=== PATIENT | male | born 1980 | race Caucasian/White ===

== ENCOUNTER 2021-04-01 20:58 | Emergency (ER) | payer BC, SELFPAY ==
--- NOTE | ~2021-04-01 | CT_ITS ---
EXAMINATION: CT ABDOMEN AND PELVIS WITHOUT CONTRAST CLINICAL INFORMATION: Left flank pain COMPARISON: None TECHNIQUE: Multidetector volumetric imaging was performed from the superior aspect of the liver through the pubic symphysis. Sagittal and coronal reformatted images were obtained on the technologist's workstation. This CT examination was performed using dose optimization techniques as appropriate, variously including the following: *Automated exposure control *Adjustment of mA and/or kV according to patient size (this includes techniques or standardized protocols for targeted exams where dose is matched to indication/reason for exam; i.e. extremities or head) *Use of iterative reconstruction technique DLP: 1234 mGy-cm FINDINGS: LUNG BASES: The visualized lung bases are unremarkable. LIVER, GALLBLADDER, AND BILIARY TREE: The liver is normal in size, shape, and attenuation. No focal hepatic lesion or biliary ductal dilatation is present. The gallbladder is unremarkable with no evidence of radiopaque gallstones, gallbladder wall thickening, or obvious pericholecystic inflammatory changes. PANCREAS: Unremarkable. SPLEEN: Unremarkable. ADRENAL GLANDS: Unremarkable. KIDNEYS AND URETERS: The kidneys are normal in size, shape, and attenuation. No hydronephrosis, hydroureter, or calculi seen. No perinephric stranding. Calcification versus surgical clip along the posterior margin of the left kidney. Cortical thinning at the lower pole of the left kidney. BLADDER: Decompressed with no gross abnormality. GASTROINTESTINAL TRACT: The stomach is unremarkable. Normal caliber small bowel. There is no obstruction. No colonic wall thickening or inflammatory change. No free air. No free fluid. Short appendix noted without inflammation.. ABDOMINAL WALL: No significant hernia is appreciated. LYMPH NODES: Normal. Retroperitoneal surgical clips noted. VASCULAR: Normal caliber aorta. Minimal arthroscopic calcification noted. PELVIC VISCERA: The prostate and seminal vesicles are unremarkable. OSSEOUS STRUCTURES: No acute or suspicious osseous abnormality. CT/CT abdomen pelvis wo con IMPRESSION: No acute findings in the abdomen or pelvis. No hydronephrosis or nephrolithiasis. Surgical clips are seen adjacent to the kidney and in the retroperitoneum, suggesting previous intervention. No acute abnormality.
[2021-04-01 21:09] VITALS: BP 130/80; PULSE 100; O2SAT 97
[2021-04-01 22:19] VITALS: BP 124/79; PULSE 92; RESP 18; TEMP 37.1; O2SAT 97; BMI 41.8
[2021-04-02] MEDS: Acetaminophen 325 MG TABLET 650 MG PO (03:24)
[2021-04-02] MEDS: Ketorolac Tromethamine 15 MG/ML VIAL IM (03:24)
[2021-04-02] MEDS: Lidocaine 4 % Patch ADH..PATCH 1 PATCH TRANSDERMA (03:24)
--- NOTE | 2021-04-02 03:34 | ED_ITS ---
HPI - Back Pain/Injury General Chief Complaint: Back Pain/Injury Stated Complaint: back pain Time Seen by Provider: 04/02/21 03:34 Source: patient Mode of arrival: ambulatory History of Present Illness HPI Narrative: This is a 41-year-old male who has history of kidney stones and presents with onset of lower back pain that is sharp in nature and wraps around into the left groin area primarily on the left side that started earlier in the day, patient stated that he laid down to try to relieve the symptoms that ?he just could not get comfortable?. He denies any associated fever, chills, shortness of breath, chest pain/palpitations, nausea, vomiting, diarrhea, but states he has had some difficulty urinating any denies any recent alcohol use. Related Data Allergies Allergy/AdvReac Type Severity Reaction Status Date / Time No Known Allergies Allergy Verified 04/01/21 22:19 Review of Systems Review of Systems: Pertinent positives and negatives as stated in HPI 10 point review systems is otherwise negative. PMFSH Past Medical History Source: nursing notes reviewed Social History Social History Patient Tobacco Use Status: Never used Tobacco Use of substances other than those prescribed or required for medical reasons: No Advance Directives: No Advance Directives Information Provided: No Physical Exam Vital Signs: Vital Signs: Last Vital Signs Temp 98.7 F 04/02/21 04:00 Pulse 76 04/02/21 04:00 Resp 15 04/02/21 04:00 BP 137/79 04/02/21 04:00 Pulse Ox 96 04/02/21 04:00 Body Mass Index 41.8 VITAL SIGNS: Reviewed. GENERAL: Well developed, well nourished, in no acute distress. HEAD: Normocephalic/atraumatic EYES: PERRLA, EOMI OROPHARYNX: no oral lesions noted, posterior pharynx clear LUNGS: Normal breath sounds. SpO2<97> CARDIOVASCULAR: Regular rate and rhythm without noted murmurs ABDOMEN: Soft, non-tender, non-distended with bowel sounds. SKIN: Inspection of the skin reveals no rashes NEUROLOGIC: Alert and oriented x 4. Strength and sensation to light touch were grossly intact, but some dysfunction on the right side secondary to history of TBI Course Course Course Narrative: 41-year-old male with history and clinical presentation most suggestive of renal colic, doubt diverticulitis, colitis, UTI. Review of all investigations negative for acute findings to suggest renal colic, diverticulitis, colitis, UTI. On re-evaluation patient has complete resolution of his pain is otherwise discharged home in stable condition with instructions to follow-up with his primary care provider. MDM - Back Pain/Injury Lab Data Result diagrams: 04/02/21 04:42 04/02/21 04:42 Labs: Lab Results 04/02/21 04/02/21 04/02/21 Range/Units 04:38 04:42 04:42 WBC 9.6 (4.8-10.8) X10*3/uL RBC 4.88 (4.60-5.80) X10*6/uL Hgb 14.4 (14.0-18.0) g/dl Hct 44.1 (42-52) % MCV 90.4 (80-98) fL MCH 29.5 (27.0-33.0) pg MCHC 32.7 (31.0-36.0) g/dl RDW 13.4 (11.0-16.0) % Plt Count 309 (160-400) X10*3/uL MPV 11.0 (9.4-12.4) fL Immature Gran % (Auto) 0.4 (0.0-0.4) % Neut % (Auto) 56.2 (45-73) % Lymph % (Auto) 29.7 (20-40) % [place] % (Auto) 9.0 (2-11) % Eos % (Auto) 4.2 H (0-4) % Baso % (Auto) 0.5 (0-2) % Lymph # (Auto) 2.8 (1.2-4.9) X10*3/uL [place] # (Auto) 0.9 (0.1-1.2) X10*3/uL Eos # (Auto) 0.4 (0.0-0.4) X10*3/uL Baso # (Auto) 0.1 (0.0-0.2) X10*3/uL Abs Immat Gran (auto) 0.04 H (0.00-0.03) X10*3/uL Absolute Neuts (auto) 5.4 (2.0-8.3) X10*3/uL Absolute Nucleated RBC 0.000 (0.0-0.012) X10*3/uL Nucleated RBC % (auto) 0.0 (0.0-0.2) /100WBC Sodium 139 (135-145) mmol/L Potassium 4.4 (3.3-5.1) mmol/L Chloride 106 (96-108) mmol/L Carbon Dioxide 26 (22-29) mmol/L Anion Gap 11 L (12-20) BUN 6 L (9-16) mg/dL Creatinine 0.90 (0.5-1.4) mg/dL Estim Creat Clear Calc 149.1 Estimated GFR > 60 Random Glucose 108 (60-115) mg/dL Calcium 9.3 (8.4-10.2) mg/dL Total Bilirubin 0.6 (0.0-1.0) mg/dL AST 15 (5-37) U/L ALT 23 (0-40) U/L Alkaline Phosphatase 86 (39-117) U/L Total Protein 7.4 (6.5-8.0) g/dL Albumin 4.1 (3.5-5.0) g/dL Lipase 49 (8-78) U/L Urine Color YELLOW Urine Appearance CLEAR Urine pH 6.0 (5.0-8.0) Ur Specific [place] >= 1.030 H (1.005-1.025) Urine Protein NEG (NEG-TRACE) MG/DL Urine Glucose (UA) NEG (NEG) MG/DL Urine Ketones NEG (NEG) MG/DL Urine Blood NEG (NEG) Urine Nitrite NEG (NEG) Ur Leukocyte Esterase NEG (NEG) Discharge Plan Discharge Clinical Impression: Back pain Patient Disposition: Home, Self-Care Instructions: Back Pain (ED) Additional Instructions: 1. Continue to take [id number] Tylenol/ibuprofen as needed for back pain. 2. Recommend using [id number] lidocaine patches, apply to area of maximal tenderness as directed on the outside packaging. 3. Follow-up with your primary care provider in the next 1-2 days for re- evaluation. Return to the ER for acute worsening of symptoms. Referrals: Larissa Rodriguez NP [Primary Care Provider] - 2 days (Back pain)
[2021-04-02 04:00] VITALS: BP 137/79; PULSE 76; RESP 15; TEMP 37.1; O2SAT 96
[2021-04-02 04:49] LABS: MANUAL DIFF FLAG NO
[2021-04-02 04:50] LABS: Basophils Absolute Auto 0.1 X10*3/uL (0.0-0.2); Basophils Percent Auto 0.5 % (0-2); Eosinophils Absolute Auto 0.4 X10*3/uL (0.0-0.4); Eosinophils Percent Auto 4.2 % (0-4); Hematocrit 44.1 % (42-52); Hemoglobin 14.4 g/dl (14.0-18.0); Imm Gran Abs Auto 0.04 X10*3/uL (0.00-0.03); Imm Gran Pct Auto 0.4 % (0.0-0.4); Lymphocytes Absolute Auto 2.8 X10*3/uL (1.2-4.9); Lymphocytes Percent Auto 29.7 % (20-40); Mean Corpuscular HGB Conc 32.7 g/dl (31.0-36.0); Mean Corpuscular Hemoglobin 29.5 pg (27.0-33.0); Mean Corpuscular Volume 90.4 fL (80-98); Monocytes Absolute Auto 0.9 X10*3/uL (0.1-1.2); Neutrophils Absolute Auto 5.4 X10*3/uL (2.0-8.3); Neutrophils Percent Auto 56.2 % (45-73); Platelet Count 309 X10*3/uL (160-400); Red Blood Count 4.88 X10*6/uL (4.60-5.80); Red Cell Distribution Width 13.4 % (11.0-16.0); White Blood Count 9.6 X10*3/uL (4.8-10.8)
[2021-04-02 04:51] LABS: Glucose Urine UA NEG (NEG); Leukocyte Esterase Urine NEG (NEG); Nitrite Urine NEG (NEG); Specific Gravity - Urine >= 1.030 (1.005-1.025); Urine Blood NEG (NEG); Urine Ketones NEG (NEG); Urine Protein NEG (NEG-TRACE)
[2021-04-02 04:53] LABS: Appearance Urine CLEAR; Color Urine YELLOW
[2021-04-02 05:32] LABS: Alanine Aminotransferase 23 U/L (0-40); Albumin Level 4.1 g/dL (3.5-5.0); Anion Gap 11 (12-20); Aspartate Amino Transferase 15 U/L (5-37); Bilirubin Total 0.6 mg/dL (0.0-1.0); Calcium 9.3 mg/dL (8.4-10.2); Carbon Dioxide 26 mmol/L (22-29); Chloride 106 mmol/L (96-108); Creatinine Clr Calc Pharmacy 149.1; Estimated Glomerular Filt Rate > 60; Glucose Random 108 mg/dL (60-115); Lipase 49 U/L (8-78); Potassium 4.4 mmol/L (3.3-5.1); Sodium 139 mmol/L (135-145); Total Protein 7.4 g/dL (6.5-8.0)
[2021-04-02 05:37] LABS: Alkaline Phosphatase 86 U/L (39-117); Blood Urea Nitrogen 6 mg/dL (9-16)
== END 2021-04-02 05:50 | disposition home or self-care (01) ==
PROVIDERS: Emergency Provider Student in an Organized Health Care Education/Training Program; PCP Nurse Practitioner Family
DX: M54.5 Low back pain (principal)
CPT/HCPCS: 36415; 74176; 80053; 81003; 83690; 85025; 96372; 99284; 99285; J1885

== ENCOUNTER 2021-05-06 20:13 | Inpatient (IN) | payer MEDICARE, SELFPAY ==
[2021-05-06 21:00] VITALS: BP 131/86; PULSE 90; RESP 18; TEMP 36.8; O2SAT 94; BMI 41.8
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
--- NOTE | 2021-05-06 21:51 | PHA.MEDREC ---
Pharmacy Consult ? Medication Reconciliation Pharmacy has completed the medication reconciliation.
--- NOTE | 2021-05-06 22:12 | MHC.CARE ---
CARE team contacted by pt's sister, Sissy, this afternoon who expressed concern for the pt experiencing worsening depression and suicidal ideation. Would like pt to be evaluated, notified CARE team that she would be bringing him to the ED this evening. Pt has [email or web address] [place] insurance and will be evaluated by CARE team when he is medically cleared for assessment.
[2021-05-06 22:23] LABS: COVID-19 Test Negative (Negative)
[2021-05-06 23:09] LABS: MANUAL DIFF FLAG NO
[2021-05-06 23:10] LABS: Basophils Absolute Auto 0.1 X10*3/uL (0.0-0.2); Basophils Percent Auto 0.4 % (0-2); Eosinophils Absolute Auto 0.6 X10*3/uL (0.0-0.4); Eosinophils Percent Auto 5.3 % (0-4); Hematocrit 47.3 % (42-52); Hemoglobin 15.3 g/dl (14.0-18.0); Imm Gran Abs Auto 0.02 X10*3/uL (0.00-0.03); Imm Gran Pct Auto 0.2 % (0.0-0.4); Lymphocytes Absolute Auto 3.6 X10*3/uL (1.2-4.9); Lymphocytes Percent Auto 30.8 % (20-40); Mean Corpuscular HGB Conc 32.3 g/dl (31.0-36.0); Mean Corpuscular Hemoglobin 29.2 pg (27.0-33.0); Mean Corpuscular Volume 90.3 fL (80-98); Mean Platelet Volume 11.5 fL (9.4-12.4); Monocytes Absolute Auto 1.1 X10*3/uL (0.1-1.2); Monocytes Percent Auto 9.2 % (2-11); Neutrophils Absolute Auto 6.4 X10*3/uL (2.0-8.3); Neutrophils Percent Auto 54.1 % (45-73); Platelet Count 287 X10*3/uL (160-400); Red Blood Count 5.24 X10*6/uL (4.60-5.80); Red Cell Distribution Width 13.2 % (11.0-16.0); White Blood Count 11.8 X10*3/uL (4.8-10.8)
[2021-05-06 23:32] LABS: Ethanol < 10 mg/dL
[2021-05-06 23:35] LABS: Alanine Aminotransferase 35 U/L (0-40); Albumin Level 4.3 g/dL (3.5-5.0); Alkaline Phosphatase 82 U/L (39-117); Anion Gap 13 (12-20); Aspartate Amino Transferase 19 U/L (5-37); Bilirubin Direct < 0.2 mg/dL (0.0-0.5); Bilirubin Total 0.5 mg/dL (0.0-1.0); Blood Urea Nitrogen 17 mg/dL (9-16); Calcium 9.6 mg/dL (8.4-10.2); Carbon Dioxide 27 mmol/L (22-29); Chloride 104 mmol/L (96-108); Estimated Glomerular Filt Rate > 60; Glucose Random 143 mg/dL (60-115); Potassium 4.2 mmol/L (3.3-5.1); Sodium 140 mmol/L (135-145); Total Protein 7.9 g/dL (6.5-8.0)
[2021-05-06 23:43] LABS: Amphetamine Screen Urine Not Detected (Not Detect); Barbiturates, Urine Not Detected (Not Detect); Benzodiazepines Screen Urine Not Detected (Not Detect); Cannabinoid Screen Urine Not Detected (Not Detect); Cocaine Screen Urine Not Detected (Not Detect); Fentanyl, urine Not Detected (Not Detect); Opiate Screen Urine Not Detected (Not Detect); Phencyclidine Screen Urine Not Detected (Not Detect)
[2021-05-06] MEDS: Sertraline HCL 50 MG TABLET PO (23:49)
[2021-05-06] MEDS: Atorvastatin Calcium 20 MG TABLET PO (23:49)
[2021-05-06] MEDS: metFORMIN HCl 500 MG TABLET PO (23:49)
[2021-05-06] MEDS: cephALEXin 500 MG CAPSULE PO (23:49)
--- NOTE | 2021-05-07 00:13 | MHC.CARE ---
CARE team evaluation completed. Plan is for inpatient psychiatric admission. Sect 12a pending facility/unit transfer.
[2021-05-07 00:21] LABS: Appearance Urine CLEAR; Color Urine YELLOW; Glucose Urine UA NEG (NEG); Leukocyte Esterase Urine NEG (NEG); Nitrite Urine NEG (NEG); Specific Gravity - Urine >= 1.030 (1.005-1.025); UACC Culture Trigger NO; Urine Blood 1+ (NEG); Urine Ketones NEG (NEG); Urine Protein NEG (NEG-TRACE)
[2021-05-07 00:24] LABS: Bacteria Urine 1+ /LPF; Squamous Epithelial Cell Urine 1+ /LPF
[2021-05-07 00:25] LABS: Calcium Oxalate Crystals Urine 1+ /LPF
--- NOTE | 2021-05-07 04:15 | PC.NURSE ---
PT SLEEPING, WAKES TO VOICE. WILL CONTINUE TO MONITOR PT.
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
[2021-05-07 08:41] VITALS: BP 167/111; PULSE 88; RESP 18; TEMP 36.8; O2SAT 96
[2021-05-07 09:28] VITALS: BP 167/111; PULSE 88
[2021-05-07] MEDS: lisinopriL 20 MG TABLET PO (09:28)
[2021-05-07] MEDS: cephALEXin 500 MG CAPSULE PO ×4 (09:28→20:58)
[2021-05-07] MEDS: metFORMIN HCl 500 MG TABLET PO ×2 (09:29→17:54)
[2021-05-07 14:00] VITALS: BP 145/72; PULSE 76
--- NOTE | 2021-05-07 14:18 | PC.NURSE ---
REPORT GIVEN TO SALINA ON M5
[2021-05-07 18:00] VITALS: BP 136/81; PULSE 93; RESP 18; TEMP 36.2; O2SAT 95
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
[2021-05-07] MEDS: Atorvastatin Calcium 20 MG TABLET PO (20:58)
[2021-05-07] MEDS: Sertraline HCL 50 MG TABLET PO (20:58)
[2021-05-08 07:00] VITALS: BMI 43.3
[2021-05-08 09:13] LABS: Cholesterol 163 mg/dL; HDL Cholesterol 35 mg/dL; LDL Cholesterol Calculated 108 mg/dl; Triglycerides 100 mg/dL
[2021-05-08 09:24] VITALS: BP 149/71; PULSE 83
[2021-05-08] MEDS: cephALEXin 500 MG CAPSULE PO ×4 (09:24→21:05)
[2021-05-08] MEDS: lisinopriL 20 MG TABLET PO (09:24)
[2021-05-08] MEDS: Loratadine 10 MG TABLET PO (09:24)
[2021-05-08] MEDS: metFORMIN HCl 500 MG TABLET PO ×2 (09:26→17:19)
[2021-05-08 09:30] LABS: Free T4 (Free Thyroxine) 0.92 ng/dL (0.71-1.85); Thyroid Stimulating Hormone 1.33 uIU/mL (0.32-4.0)
[2021-05-08 09:54] LABS: Folate 10.3 ng/mL (> or = 4.0); Vitamin B12 335 pg/mL (200-900)
[2021-05-08 10:36] LABS: Estimated Average Glucose 120 mg/dL; Hemoglobin A1c % 5.8 %
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
[2021-05-08 16:37] VITALS: BP 142/76; PULSE 80; RESP 18; TEMP 36.3; O2SAT 96
[2021-05-08] MEDS: Sertraline HCL 50 MG TABLET PO (21:05)
[2021-05-08] MEDS: Atorvastatin Calcium 20 MG TABLET PO (21:05)
[2021-05-09 06:00] VITALS: PULSE 83; RESP 14; TEMP 36.4; O2SAT 96
[2021-05-09 09:02] VITALS: BP 136/82; PULSE 83
[2021-05-09] MEDS: metFORMIN HCl 500 MG TABLET PO ×2 (09:02→17:58)
[2021-05-09] MEDS: lisinopriL 20 MG TABLET PO (09:02)
[2021-05-09] MEDS: cephALEXin 500 MG CAPSULE PO ×4 (09:04→19:45)
[2021-05-09 18:00] VITALS: BP 135/67; PULSE 103; TEMP 36.2
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
[2021-05-09] MEDS: Sertraline HCL 50 MG TABLET PO (19:45)
[2021-05-09] MEDS: Atorvastatin Calcium 20 MG TABLET PO (19:45)
[2021-05-10 06:00] VITALS: BP 123/76; PULSE 72; RESP 16
[2021-05-10 08:26] VITALS: BP 123/76; PULSE 72
[2021-05-10] MEDS: lisinopriL 20 MG TABLET PO (08:26)
[2021-05-10] MEDS: cephALEXin 500 MG CAPSULE PO ×4 (08:26→22:59)
[2021-05-10] MEDS: metFORMIN HCl 500 MG TABLET PO ×2 (08:26→19:03)
[2021-05-10] MEDS: ARIPiprazole 5 MG TABLET PO (08:26)
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
[2021-05-10 17:46] LABS: Glucose, Whole Blood 95 mg/dL (60-115)
[2021-05-10 18:00] VITALS: BP 110/76; PULSE 89
[2021-05-10] MEDS: hydrOXYzine HCL 25 MG TABLET PO (19:02)
[2021-05-10 22:46] LABS: Glucose, Whole Blood 113 mg/dL (60-115)
[2021-05-10] MEDS: Sertraline HCL 50 MG TABLET PO (22:59)
[2021-05-10] MEDS: Atorvastatin Calcium 20 MG TABLET PO (22:59)
[2021-05-11 08:15] VITALS: BP 143/76; PULSE 82; RESP 16; TEMP 36.8; O2SAT 94
[2021-05-11 08:51] VITALS: BP 143/76; PULSE 82
[2021-05-11] MEDS: ARIPiprazole 5 MG TABLET PO (08:51)
[2021-05-11] MEDS: cephALEXin 500 MG CAPSULE PO ×4 (08:51→20:15)
[2021-05-11] MEDS: lisinopriL 20 MG TABLET PO (08:51)
[2021-05-11] MEDS: metFORMIN HCl 500 MG TABLET PO ×2 (08:51→18:05)
[2021-05-11] MEDS: Sertraline HCL 25 MG TABLET 75 MG PO (20:12)
[2021-05-11] MEDS: Atorvastatin Calcium 20 MG TABLET PO (20:15)
--- NOTE | 2021-05-11 20:25 | P.PNPSI_ITS ---
Subjective Subjective Date of Service: 05/11/21 Reason For Visit: recurrent major depression Interim History: pt reports he's in a good mood today; says he was feeling down yesterday but had a good talk with his sister and is feeling better. Pt said the acuity on the unit has been troubling and he hopes to discharge soon. Pt denies SI. He says he's over it and that he was being dumb (referring to attempt). Diagnostics Vital Signs (24Hr): Vital Signs - 24 hr 05/11/21 08:15 05/11/21 08:51 Temperature 98.2 F Pulse Rate 82 82 Respiratory Rate 16 Blood Pressure 143/76 H 143/76 H Pulse Oximetry 94 Body Mass Index 43.3 Labs Results: 05/06/21 23:05 05/06/21 23:05 Labs: Laboratory Results - last 48 hr 05/10/21 05/10/21 17:40 22:36 POC Glucose 95 113 Medications Medications Current Medications Acetaminophen (Acetaminophen 325 Mg Tablet) 650 mg PO Q6H PRN PRN Reason: Headache/Pain Mild Scale (1-3) Al Hydroxide/Mg Hydroxide (Magnesium Hydrox/Alum Hydrox 30 Ml Oral.Susp) 30 ml PO Q6H PRN PRN Reason: Heartburn/Nausea Aripiprazole (Aripiprazole 5 Mg Tablet) 5 mg PO DAILY [facility] Last Admin: 05/11/21 08:51 Dose: 5 mg Documented by: Atorvastatin Calcium (Atorvastatin Calcium 20 Mg Tablet) 20 mg PO BEDTIME [facility] Last Admin: 05/11/21 20:15 Dose: 20 mg Documented by: Cephalexin HCl (Cephalexin 500 Mg Capsule) 500 mg PO QID [facility] Last Admin: 05/11/21 20:15 Dose: 500 mg Documented by: Hydroxyzine HCl (Hydroxyzine Hcl 25 Mg Tablet) 25 mg PO BEDTIME PRN PRN Reason: Anxiety Last Admin: 05/10/21 19:02 Dose: 25 mg Documented by: Lisinopril (Lisinopril 20 Mg Tablet) 20 mg PO DAILY [facility]; Protocol Last Admin: 05/11/21 08:51 Dose: 20 mg Documented by: Loratadine (Loratadine 10 Mg Tablet) 10 mg PO DAILY PRN PRN Reason: Allergy Symptoms Last Admin: 05/08/21 09:24 Dose: 10 mg Documented by: Magnesium Hydroxide (Milk Of Magnesia 30 Ml Oral.Susp) 30 ml PO DAILY PRN PRN Reason: Constipation Metformin HCl (Metformin Hcl 500 Mg Tablet) 500 mg PO BIDWM [facility] Last Admin: 05/11/21 18:05 Dose: 500 mg Documented by: Sertraline HCl (Sertraline Hcl 25 Mg Tablet) 75 mg PO BEDTIME [facility] Last Admin: 05/11/21 20:12 Dose: 75 mg Documented by: Trazodone HCl (Trazodone Hcl 50 Mg Tablet) 50 mg PO BEDTIME PRN PRN Reason: Insomnia Allergies Allergies Allergy/AdvReac Type Severity Reaction Status Date / Time No Known Allergies Allergy Verified 04/01/21 22:19 Assessment & Plan Assessment & Plan (1) Severe recurrent major depression: Status: Acute Code(s): F33.2 - Major depressive disorder, recurrent severe without psychotic features Assessment and Plan: Probation And Parole Officer covering patient 05/11 Increased Zoloft to 75 mg to address depression No other changes to current treatment plan Primary team provider might consider trial of Adderall/stimulant medication for TBI, which can also potentially help with depression 41 yo male, s/p TBI in 2005 with resulting 8 month coma, presents with SI and reported attempt a few days prior to admission. Pt's of cancer in January 2020 which he identifies as the main precipitant as he has difficulty being alone. Pt initiated Sertraline with PCP a few days prior to admission. Sister reports family history of depression-she tells team she has efficacy from a combination of Effexor and Abilify. Plan: -Continue current plan -Aftercare planning, team is looking into day programs to offer more structure and support. Greater than 50% of the session was spent on counseling and/or coordination of care Reason for contiued inpatient stay Substantial Risk for: other
[2021-05-12 06:00] VITALS: BP 147/84; PULSE 90; RESP 16; TEMP 36.5; O2SAT 95
[2021-05-12 08:18] LABS: Creatinine Clr Calc Pharmacy 162.9; Estimated Glomerular Filt Rate > 60
[2021-05-12 09:23] VITALS: BP 147/84; PULSE 95
[2021-05-12] MEDS: ARIPiprazole 5 MG TABLET PO (09:23)
[2021-05-12] MEDS: metFORMIN HCl 500 MG TABLET PO ×2 (09:23→17:55)
[2021-05-12] MEDS: lisinopriL 20 MG TABLET PO (09:23)
[2021-05-12] MEDS: cephALEXin 500 MG CAPSULE PO ×4 (09:23→22:15)
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
[2021-05-12 18:00] VITALS: BP 110/78; PULSE 65
[2021-05-12 18:05] LABS: Glucose, Whole Blood 121 mg/dL (60-115)
[2021-05-12 21:59] LABS: Glucose, Whole Blood 108 mg/dL (60-115)
[2021-05-12] MEDS: Sertraline HCL 25 MG TABLET 75 MG PO (22:15)
[2021-05-12] MEDS: Atorvastatin Calcium 20 MG TABLET PO (22:15)
[2021-05-13 06:00] VITALS: BP 146/81; PULSE 68; RESP 18; TEMP 35.8; O2SAT 94
[2021-05-13 09:35] VITALS: BP 142/79; PULSE 91
[2021-05-13] MEDS: lisinopriL 20 MG TABLET PO (09:35)
[2021-05-13] MEDS: cephALEXin 500 MG CAPSULE PO (09:35)
[2021-05-13] MEDS: metFORMIN HCl 500 MG TABLET PO (09:35)
[2021-05-13] MEDS: ARIPiprazole 5 MG TABLET PO (09:35)
--- NOTE | 2021-06-08 12:00 | P.DS_ITS ---
DS: Providers Provider Date of Service: 05/13/21 Date of admission: 05/07/21 15:35 Date of discharge: 05/13/21 Primary care physician: Larissa Rodriguez NP Admitting clinician: Beth Moran Attending physician on admission: Jarrod Leram Attending physician on discharge: Jarrod Lerma Discharging clinician: Beth Moran DS: Diagnosis Discharge Diagnosis (1) Severe recurrent major depression: Status: Acute DS: Medications Discharge Medications Home Medications: Home Medications Medication Instructions Recorded Confirmed atorvastatin 20 mg tablet 1 tab PO BEDTIME 05/06/21 05/06/21 fexofenadine 180 mg tablet 180 mg PO DAILY PRN 05/06/21 05/06/21 lisinopril 20 mg tablet 1 tab PO DAILY 05/06/21 05/06/21 Previous Rx's Medication Instructions Recorded aripiprazole 5 mg tablet (Abilify) 5 mg PO DAILY #30 tab 05/13/21 lisinopril 20 mg tablet 20 mg PO DAILY #30 tab 05/13/21 metformin 500 mg tablet 500 mg PO BIDWM #60 tab 05/13/21 sertraline 25 mg tablet 100 mg PO BEDTIME #90 tab 05/13/21 Mental Status Exam Mental Status Exam Narrative: Patient Appearance:?lying in bed, t-shirt, unkempt Patient Orientation:?Person, Place, Time and Situation Level of Consciousness:?Alert Patient Behavior:?calm, cooperative, adequate Eye Contact Mood Description:?Depressed and Anxious Affect Description:?Flat Patient Cognition Impaired:?Yes Ability to Follow Directions:?Good Speech Pattern:?Spontaneous Speech Memory Description:?Episodic Impaired Hallucinations:?None Delusions:?Not Present Thought Process:?goal directed; concrete Thought Content:?depression; denies SI or HI Depressive Symptoms:?Diff. Making Decisions, Crying Spells, Loss of Int. in Activity, Feelings of Worthlessness, Hopelessness, Isolating-Friends/Family, Feelings of Guilt, Unhappiness, Increased Fatigue, Thoughts of /Suicide, Low Self Esteem and Loss of Energy Judgement/insight: impaired DS: Summary Hospital Course Hospital Course: Pt admitted on a conditional voluntary status. Medications were reviewed, titrated and tolerated by pt. Pt worked with the nursing and geriatric social work professor t gordy on aftercare planning, coping skills and strategies for managing presenting symptoms, along with processing his feelings of grief and loss. Time spent discussing smoking cessation with patient: 3 to 10 minutes Status at Discharge Cognitive/behavioral status at discharge: non-suicidal, non-homicidal Functional status at discharge: independent ambulation Overall status at discharge: patient is progressing back to baseline Time Spent with Patient Time attestation: Total time spent providing and/or coordinating discharge services: 35 Time spent: Greater than 30 minutes Discharge Plan Discharge Patient Disposition: Home, Self-Care Discharge Diagnosis: MDD, recurrent, moderate Referrals: Kwasi Patino (medication management) [Other] - 05/20/21 2:00 pm (This is a Telehealth appointment. Please have your phone on and ready at the time of your appointment) [facility] ([facility]) [Other] - 1 Week (A [facility] referral has been made on your behalf for support, skill-building, socialization, and assistance with employment opportunities. You should be contacted when your referral has been processed and you can contact the program at the above number) [facility] [Other] - 1 Week (A referral has been made on your behalf for the [employer] [facility] Day Program. Please contact the program at the above number to schedule a tour.) Larissa Rodriguez NP [Primary Care Provider] - 05/21/21 8:36 am (in office) Discharge Medications: New lisinopril 20 mg Tablet 20 mg PO DAILY Qty: 30 RF: 0 sertraline 25 mg Tablet 100 mg PO BEDTIME Qty: 90 RF: 0 metformin 500 mg Tablet 500 mg PO BIDWM Qty: 60 RF: 0 aripiprazole [Abilify] 5 mg Tablet 5 mg PO DAILY Qty: 30 RF: 0 Continued atorvastatin 20 mg tablet 1 tab PO BEDTIME RF: 0 lisinopril 20 mg tablet 1 tab PO DAILY RF: 0 fexofenadine 180 mg Tablet 180 mg PO DAILY PRN (Reason: Allergy Symptoms) RF: 0 Discontinued metformin 500 mg tablet 1 tab PO BID RF: 0 sertraline 50 mg tablet 1 tab PO BEDTIME RF: 0 Discharge Orders: Discharge Order (Routine); Ordered 05/12/21 Ordered By: Meaghan Harrington Diet: regular diet Activity on Discharge: As tolerated Stand Alone Forms: Patient Portal Discharge page Care Plan Goals: 1. Maintain mood 2. No SI/HI. Health Concerns: 1. Follow up with PCP Plan of Treatment: 1. Take medications as prescribed. 2. Go to nearest ED or call 911 in event of emergency. Assessment: 1. No SI/HI. Discharge Date/Time: 05/13/21 12:02
== END 2021-05-13 12:02 | disposition home or self-care (01) | DRG 885 ==
LOC: HO.ED 05-07 05:12 → HO.PM5 05-07 15:41
PROVIDERS: Nurse Practitioner Family; Admitting Provider Psychiatry & Neurology Psychiatry; Emergency Provider Emergency Medicine Emergency Medical Services; PCP Nurse Practitioner Family; Visit Provider Clinical Nurse Specialist Psychiatric/Mental Health, Adult
DX: F33.2 Major depressive disorder, recurrent severe without psychotic features (principal); R45.851 Suicidal ideations; I10 Essential (primary) hypertension; E78.5 Hyperlipidemia, unspecified; G47.33 Obstructive sleep apnea (adult) (pediatric); Z23 Encounter for immunization; Z20.822 Contact with and (suspected) exposure to COVID-19; Z87.820 Personal history of traumatic brain injury; Z99.89 Dependence on other enabling machines and devices; Z79.84 Long term (current) use of oral hypoglycemic drugs; Z79.899 Other long term (current) drug therapy
CPT/HCPCS: 36415; 80048; 80061; 80076; 80307; 81001; 82077; 82565; 82607; 82746; 82947; 83036; 84439; 84443; 85025; 87635; 90686; 99285

== ENCOUNTER 2021-12-31 18:55 | Emergency (ER) | payer MEDICARE, SELFPAY ==
--- NOTE | ~2021-12-31 | US_ITS ---
EXAMINATION: US VENOUS ULTRASOUND WITH DOPPLER LOWER EXTREMITY, RIGHT CLINICAL INFORMATION: Right lower extremity swelling COMPARISON: None TECHNIQUE: Ultrasound of the deep veins is performed from the hip to the calf with compression sonography and color and pulse Doppler assessment. Spectral analysis with color-flow imaging is performed. FINDINGS: There is normal venous compression and respiratory variation and augmented flow. The visualized common femoral vein, superficial femoral vein, profunda femoral vein, popliteal vein, and the trifurcation region shows no evidence of deep venous thrombosis. The peroneal vein is not well seen secondary to calf swelling There is no significant popliteal fossa cyst. If the patient's symptoms persist, followup ultrasound in 5 days 7 days might be of value to exclude proximal propagation from a non-visualized calf vein. US/US venous duplex LE RT IMPRESSION: No DVT demonstrated in the right lower extremity.
[2021-12-31 19:31] VITALS: BP 126/72; PULSE 93; RESP 18; TEMP 36; O2SAT 94; BMI 46.0
[2021-12-31 20:00] LABS: MANUAL DIFF FLAG NO
[2021-12-31 20:04] LABS: Basophils Absolute Auto 0.1 X10*3/uL (0.0-0.2); Basophils Percent Auto 0.6 % (0-2); Eosinophils Absolute Auto 0.6 X10*3/uL (0.0-0.4); Eosinophils Percent Auto 5.4 % (0-4); Hematocrit 44.3 % (42.0-52.0); Hemoglobin 14.3 g/dl (14.0-18.0); Imm Gran Abs Auto 0.03 X10*3/uL (0.00-0.03); Imm Gran Pct Auto 0.3 % (0.0-0.4); Lymphocytes Absolute Auto 3.9 X10*3/uL (1.2-4.9); Lymphocytes Percent Auto 33.2 % (20-40); Mean Corpuscular HGB Conc 32.3 g/dl (31.0-36.0); Mean Corpuscular Hemoglobin 28.8 pg (27.0-33.0); Mean Corpuscular Volume 89.3 fL (80.0-98.0); Mean Platelet Volume 10.8 fL (9.4-12.4); Monocytes Absolute Auto 1.2 X10*3/uL (0.1-1.2); Monocytes Percent Auto 10.3 % (2-11); Neutrophils Absolute Auto 5.9 x10*3/uL (2.0-8.3); Neutrophils Percent Auto 50.2 % (45-73); Platelet Count 329 X10*3/uL (160-400); Red Blood Count 4.96 X10*6/uL (4.60-5.80); Red Cell Distribution Width 14.8 % (11.0-16.0); White Blood Count 11.7 X10*3/uL (4.8-10.8)
[2021-12-31 20:20] LABS: Alanine Aminotransferase 43 U/L (0-40); Albumin Level 3.9 g/dL (3.5-5.0); Alkaline Phosphatase 73 U/L (39-117); Anion Gap 11 (12-20); Aspartate Amino Transferase 23 U/L (5-37); Bilirubin Total 0.5 mg/dL (0.0-1.0); Blood Urea Nitrogen 16 mg/dL (9-16); Calcium 9.5 mg/dL (8.4-10.2); Carbon Dioxide 22 mmol/L (22-29); Chloride 111 mmol/L (96-108); Creatinine Clr Calc Pharmacy 153.8; Estimated Glomerular Filt Rate > 60; Glucose Random 94 mg/dL (60-115); Potassium 4.4 mmol/L (3.3-5.1); Sodium 140 mmol/L (135-145); Total Protein 7.6 g/dL (6.5-8.0)
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
== END 2022-01-01 01:14 | disposition home or self-care (01) ==
PROVIDERS: Emergency Provider Emergency Medicine
DX: L03.115 Cellulitis of right lower limb (principal); R60.0 Localized edema; Z79.899 Other long term (current) drug therapy
CPT/HCPCS: 36415; 80053; 85025; 93971; 99284

== ENCOUNTER 2022-01-29 16:14 | Emergency (ER) | payer MEDICARE, SELFPAY ==
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
[2022-01-29 16:24] VITALS: BP 127/80; PULSE 70; O2SAT 98
[2022-01-29 16:36] VITALS: BP 128/65; PULSE 70; RESP 19; TEMP 36.7; O2SAT 98; BMI 46.8
== END 2022-01-29 17:31 | disposition home or self-care (01) ==
PROVIDERS: Emergency Provider Emergency Medicine Emergency Medical Services
DX: K43.2 Incisional hernia without obstruction or gangrene (principal); R10.9 Unspecified abdominal pain; I10 Essential (primary) hypertension; E11.9 Type 2 diabetes mellitus without complications; Z87.820 Personal history of traumatic brain injury
CPT/HCPCS: 99283

== ENCOUNTER 2022-01-31 13:20 | Emergency (ER) | payer MEDICARE, SELFPAY ==
--- NOTE | ~2022-01-31 | CT_ITS ---
EXAMINATION: CT CHEST, ABDOMEN AND PELVIS WITHOUT CONTRAST CLINICAL INFORMATION: Cough with fever. Recent surgery. COMPARISON: CT abdomen and pelvis 04/02/2021 TECHNIQUE: Multidetector volumetric imaging was performed from the thoracic inlet through the pubic symphysis. Sagittal and coronal reformatted images were obtained on the technologist's workstation. Axial MIP volume rendering provided. This CT examination was performed using dose optimization techniques as appropriate, variously including the following: *Automated exposure control *Adjustment of mA and/or kV according to patient size (this includes techniques or standardized protocols for targeted exams where dose is matched to indication/reason for exam; i.e. extremities or head) *Use of iterative reconstruction technique DLP: 1931 mGy-cm FINDINGS: CHEST: Lungs: Scattered small calcified granulomas bilaterally. No suspicious pulmonary nodules. No airspace consolidation. Minimal left basilar subsegmental atelectasis. Central through segmental airways are clear. Mediastinum: No cardiomegaly or pericardial effusion are no appreciable coronary artery vascular calcifications-limited assessment. Normal caliber thoracic aorta. No aneurysm. Nondilated central pulmonary trunk. No mediastinal or hilar lymphadenopathy. Pericardium/Pleura: There is no significant effusion. No pleural mass or thickening. Chest Wall/Axilla: Unremarkable. ABDOMEN/PELVIS: Liver, Gallbladder, Biliary Tree: Mild diffuse hepatic hypoattenuation compatible steatosis. No liver lesion. No biliary ductal dilation. The gallbladder is unremarkable with no evidence of radiopaque gallstones, gallbladder wall thickening, or pericholecystic inflammatory changes. Pancreas: Unremarkable. Spleen: Unremarkable. Adrenal Glands: Unremarkable. Kidneys and Ureters: Focal areas of cortical loss/thinning versus partial nephrectomy on the left, as on prior. There are a couple surgical clips about the margins of the mid upper pole. No renal lesions. No radiodense urinary tract calculi. No hydronephrosis. No perinephric collections. Bladder: Unremarkable. Gastrointestinal Tract: No dilated bowel loops. No bowel wall thickening. Appendix appears small in size, unchanged. No surrounding inflammatory change. No ascites or free air. Abdominal Wall: Supraumbilical ventral abdominal wall hernia is redemonstrated and now contains a knuckle of the mid transverse colon. No thickening or surrounding inflammatory changes to suggest strangulation. Small fat-containing umbilical hernia. Lymphovascular Structures: Lymph nodes: No lymphadenopathy. Vascular: Normal caliber abdominal aorta. Several surgical clips in the left periaortic region just below the left renal artery noted. Pelvic Viscera: Unremarkable. OSSEOUS STRUCTURES: No acute fracture or suspicious osseous lesion. CT/CT abdomen pelvis wo con IMPRESSION: 1. No airspace consolidation, pleural effusions, or other acute pulmonary process. 2. No acute intra-abdominal process. 3. Mild hepatic steatosis. 4. Post surgical changes in the left retroperitoneum and about the left kidney as on prior. 5. Supraumbilical hernia containing a knuckle of the transverse colon. No CT evidence of strangulation or bowel obstruction.
--- NOTE | ~2022-01-31 | XR_ITS ---
EXAMINATION: XR CHEST CLINICAL INFORMATION: Shortness of breath COMPARISON: None TECHNIQUE: 2 views of the chest were obtained. FINDINGS: The lungs are clear. No airspace consolidation, pleural effusion, or pneumothorax. The cardiomediastinal silhouette is within normal limits. Slight prominence of the central pulmonary vascularity. No evidence of pulmonary edema. No acute osseous injury. Mild height loss of a mid to lower thoracic vertebral body, presumably chronic, though exact age uncertain. XR/XR chest 2V IMPRESSION: No acute pulmonary process.
[2022-01-31 13:31] VITALS: BP 143/84; PULSE 118; O2SAT 95
[2022-01-31 13:33] VITALS: BP 122/60; PULSE 112; RESP 20; TEMP 37.7; O2SAT 97; BMI 48.6
[2022-01-31 13:41] VITALS: BP 122/60; PULSE 112; RESP 20; TEMP 37.7; O2SAT 97
--- NOTE | 2022-01-31 13:56 | ECG_ITS ---
Test Reason : cp Blood Pressure : / mmHG Vent. Rate : 108 BPM Atrial Rate : 108 BPM P-R Int : 160 ms QRS Dur : 100 ms QT Int : 312 ms P-R-T Axes : 048 006 037 degrees QTc Int : 418 ms Sinus tachycardia Possible Inferior infarct , age undetermined Abnormal ECG No previous ECGs available Referred By: Noe Albright Electronically Signed By:LUKAS CORTEZ MD
[2022-01-31 14:16] LABS: Influenza A Negative (Negative); Influenza B2 Negative (Negative)
[2022-01-31 14:20] LABS: COVID-19 Test Negative (Negative); IDNOW Serial# 55D5AD1C
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
[2022-01-31 14:49] LABS: Basophils Absolute Auto 0.1 X10*3/uL (0.0-0.2); Basophils Percent Auto 0.3 % (0-2); Eosinophils Absolute Auto 0.1 X10*3/uL (0.0-0.4); Eosinophils Percent Auto 0.3 % (0-4); Hematocrit 40.7 % (42.0-52.0); Hemoglobin 13.3 g/dl (14.0-18.0); Imm Gran Pct Auto 0.5 % (0.0-0.4); Lymphocytes Absolute Auto 2.3 X10*3/uL (1.2-4.9); MANUAL DIFF FLAG SCAN; Mean Corpuscular HGB Conc 32.7 g/dl (31.0-36.0); Mean Corpuscular Hemoglobin 29.2 pg (27.0-33.0); Mean Corpuscular Volume 89.5 fL (80.0-98.0); Monocytes Absolute Auto 1.7 X10*3/uL (0.1-1.2); Monocytes Percent Auto 8.1 % (2-11); Neutrophils Absolute Auto 16.8 x10*3/uL (2.0-8.3); Neutrophils Percent Auto 79.8 % (45-73); Platelet Count 298 X10*3/uL (160-400); Red Blood Count 4.55 X10*6/uL (4.60-5.80); Red Cell Distribution Width 14.2 % (11.0-16.0); SCAN SMEAR FLAG 1
[2022-01-31 14:56] LABS: D Dimer High Sensitivity 169 NG/ML
[2022-01-31 15:06] LABS: Alanine Aminotransferase 26 U/L (0-40); Albumin Level 3.8 g/dL (3.5-5.0); Alkaline Phosphatase 74 U/L (39-117); Anion Gap 12 (12-20); Aspartate Amino Transferase 16 U/L (5-37); Bilirubin Direct 0.2 mg/dL (0.0-0.5); Bilirubin Total 0.6 mg/dL (0.0-1.0); Blood Urea Nitrogen 12 mg/dL (9-16); Calcium 8.6 mg/dL (8.4-10.2); Carbon Dioxide 22 mmol/L (22-29); Chloride 105 mmol/L (96-108); Creatinine Clr Calc Pharmacy 153.9; Estimated Glomerular Filt Rate > 60; Glucose Random 92 mg/dL (60-115); Potassium 4.1 mmol/L (3.3-5.1); Sodium 135 mmol/L (135-145); Total Protein 7.1 g/dL (6.5-8.0)
[2022-01-31 15:11] LABS: B Type Natriuretic Peptide 52 pg/mL (<100); Troponin-I High Sensitivity < 3.5 ng/L (<3.5-35.0)
[2022-01-31 15:14] LABS: SLIDE REVIEW VERIFIED
[2022-01-31] MEDS: 0.9 % Sodium Chloride 1,000 ML 999 ML IVCONT (15:57)
[2022-01-31 16:05] LABS: Appearance Urine CLEAR; Color Urine YELLOW; Glucose Urine UA NEG (NEG); Leukocyte Esterase Urine NEG (NEG); Nitrite Urine NEG (NEG); PH 6.5 (5.0-8.0); Specific Gravity - Urine 1.015 (1.005-1.025); UACC Culture Trigger NO; Urine Blood 1+ (NEG); Urine Ketones NEG (NEG); Urine Protein NEG (NEG-TRACE)
[2022-01-31 16:37] LABS: Lactic Acid 0.9 mmol/L (0.5-2.0)
[2022-01-31 17:00] VITALS: BP 124/60; PULSE 102; RESP 20; TEMP 37.3; O2SAT 96
[2022-01-31 17:00] LABS: Squamous Epithelial Cell Urine TRACE /LPF; WBC Urine 0 /HPF (0-4)
[2022-01-31 19:03] LABS: Troponin-I High Sensitivity < 3.5 ng/L (<3.5-35.0)
[2022-01-31 19:48] VITALS: BP 123/69; PULSE 101
[2022-01-31 19:49] VITALS: BP 113/70; BP 126/60; PULSE 104; PULSE 109
== END 2022-01-31 20:59 | disposition home or self-care (01) ==
PROVIDERS: Physician Assistant Medical; Emergency Provider Student in an Organized Health Care Education/Training Program
DX: R06.02 Shortness of breath (principal); R42 Dizziness and giddiness; R00.2 Palpitations; M54.6 Pain in thoracic spine; R10.30 Lower abdominal pain, unspecified; Z20.822 Contact with and (suspected) exposure to COVID-19; Z79.899 Other long term (current) drug therapy
CPT/HCPCS: 36415; 71046; 71250; 74176; 80048; 80076; 81001; 81003; 83605; 83880; 84484; 85025; 85379; 87040; 87502; 87635; 93005; 99284

== ENCOUNTER → 2022-02-06 10:28 | Outpatient (BNVA) | payer MEDICARE, SELFPAY | PROVIDERS: Visit Provider Surgery | DX: K43.2 Incisional hernia without obstruction or gangrene (principal); E11.9 Type 2 diabetes mellitus without complications; I10 Essential (primary) hypertension; G47.33 Obstructive sleep apnea (adult) (pediatric); E66.01 Morbid (severe) obesity due to excess calories; M62.81 Muscle weakness (generalized); I87.2 Venous insufficiency (chronic) (peripheral); R60.0 Localized edema; Z87.820 Personal history of traumatic brain injury; Z90.81 Acquired absence of spleen; Z99.89 Dependence on other enabling machines and devices; Z68.42 Body mass index [BMI] 45.0-49.9, adult | CPT/HCPCS: 99202 ==

== ENCOUNTER → 2022-02-17 09:03 | Outpatient (BNVA) | payer MEDICARE, SELFPAY | PROVIDERS: Visit Provider Dietitian, Registered | DX: E66.01 Morbid (severe) obesity due to excess calories (principal); Z71.3 Dietary counseling and surveillance | CPT/HCPCS: 97802 ==

== ENCOUNTER 2022-03-04 00:40 | Inpatient (IN) | payer MEDICARE, MEDICAID, SELFPAY ==
[2022-03-04 00:45] VITALS: BP 127/82; PULSE 72; RESP 20; TEMP 36.2; O2SAT 97; BMI 41.8
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
[2022-03-04 01:16] LABS: Glucose, Whole Blood 97 mg/dL (60-115)
[2022-03-04 01:24] LABS: COVID-19 Test Negative (Negative); IDNOW Serial# 16C4AD1C
[2022-03-04 01:50] LABS: MANUAL DIFF FLAG NO
[2022-03-04 01:52] LABS: Basophils Absolute Auto 0.1 X10*3/uL (0.0-0.2); Basophils Percent Auto 0.6 % (0-2); Eosinophils Absolute Auto 0.5 X10*3/uL (0.0-0.4); Eosinophils Percent Auto 5.5 % (0-4); Hemoglobin 13.9 g/dl (14.0-18.0); Imm Gran Abs Auto 0.02 X10*3/uL (0.00-0.03); Imm Gran Pct Auto 0.2 % (0.0-0.4); Lymphocytes Absolute Auto 3.9 X10*3/uL (1.2-4.9); Lymphocytes Percent Auto 42.1 % (20-40); Mean Corpuscular HGB Conc 32.3 g/dl (31.0-36.0); Mean Corpuscular Volume 89.6 fL (80.0-98.0); Mean Platelet Volume 11.1 fL (9.4-12.4); Monocytes Absolute Auto 0.9 X10*3/uL (0.1-1.2); Monocytes Percent Auto 9.7 % (2-11); Neutrophils Absolute Auto 3.9 x10*3/uL (2.0-8.3); Neutrophils Percent Auto 41.9 % (45-73); Platelet Count 295 X10*3/uL (160-400); Red Cell Distribution Width 13.9 % (11.0-16.0); White Blood Count 9.3 X10*3/uL (4.8-10.8)
[2022-03-04 02:09] LABS: Amphetamine Screen Urine Not Detected (Not Detect); Barbiturates, Urine Not Detected (Not Detect); Benzodiazepines Screen Urine Not Detected (Not Detect); Cannabinoid Screen Urine Not Detected (Not Detect); Cocaine Screen Urine Not Detected (Not Detect); Fentanyl, urine Not Detected (Not Detect); Opiate Screen Urine Not Detected (Not Detect); Phencyclidine Screen Urine Not Detected (Not Detect)
[2022-03-04 02:16] LABS: Alanine Aminotransferase 33 U/L (0-40); Albumin Level 4.1 g/dL (3.5-5.0); Alkaline Phosphatase 76 U/L (39-117); Anion Gap 12 (12-20); Aspartate Amino Transferase 19 U/L (5-37); Bilirubin Direct 0.2 mg/dL (0.0-0.5); Bilirubin Total 0.4 mg/dL (0.0-1.0); Blood Urea Nitrogen 15 mg/dL (9-16); Calcium 9.2 mg/dL (8.4-10.2); Carbon Dioxide 24 mmol/L (22-29); Chloride 108 mmol/L (96-108); Creatinine Clr Calc Pharmacy 145.9; Estimated Glomerular Filt Rate > 60; Ethanol < 10 mg/dL; Glucose Random 123 mg/dL (60-115); Magnesium 2.2 mg/dL (1.6-2.6); Sodium 140 mmol/L (135-145); Total Protein 7.9 g/dL (6.5-8.0)
[2022-03-04 02:35] LABS: TSH reflex Free T4 2.51 uIU/mL (0.32-4.0)
--- NOTE | 2022-03-04 06:24 | PC.NURSE ---
Patient slept through the night, no distress observed/reported, behavior pleasant/non concerning, med rec completed/pending provider's approval, [facility] referral completed/confirmed/pending ETA, VSS, will continue to monitor.
--- NOTE | 2022-03-04 07:21 | PC.NURSE ---
patient appears to remain at rest at present respirations are even and unlabored patient appears in no distress
[2022-03-04 07:28] VITALS: BP 140/79; PULSE 75; RESP 16; TEMP 36.2; O2SAT 96
[2022-03-04 16:33] VITALS: BP 132/72; PULSE 75; TEMP 36.5; O2SAT 96
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
[2022-03-04 20:15] VITALS: BP 133/72
[2022-03-04] MEDS: metFORMIN HCl 500 MG TABLET PO (20:19)
[2022-03-04] MEDS: Prazosin HCL 1 MG CAPSULE PO (20:19)
[2022-03-04] MEDS: ARIPiprazole 5 MG TABLET PO (20:19)
[2022-03-04] MEDS: Docusate Sodium 100 MG CAPSULE PO (20:19)
[2022-03-05 07:00] VITALS: BMI 47.3
[2022-03-05 08:40] VITALS: BP 143/67; PULSE 77; TEMP 36.9
[2022-03-05] MEDS: lisinopriL 20 MG TABLET PO (08:46)
[2022-03-05] MEDS: Atorvastatin Calcium 20 MG TABLET PO (08:46)
[2022-03-05] MEDS: metFORMIN HCl 500 MG TABLET PO ×2 (08:47→20:37)
[2022-03-05] MEDS: Docusate Sodium 100 MG CAPSULE PO ×2 (08:47→20:37)
[2022-03-05 09:03] LABS: Estimated Average Glucose 123 mg/dL; Hemoglobin A1c % 5.9 %
[2022-03-05 09:06] LABS: Cholesterol 208 mg/dL; HDL Cholesterol 32 mg/dL; LDL Cholesterol Calculated 155 mg/dl; Magnesium 2.1 mg/dL (1.6-2.6); Triglycerides 109 mg/dL
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
[2022-03-05 09:27] LABS: Free T4 (Free Thyroxine) 0.98 ng/dL (0.71-1.85); Thyroid Stimulating Hormone 0.94 uIU/mL (0.32-4.0)
[2022-03-05 09:52] LABS: Folate 9.5 ng/mL (> or = 4.0); Vitamin B12 445 pg/mL (200-900)
[2022-03-05 18:00] VITALS: BP 119/78; PULSE 102; RESP 16; TEMP 36.4; O2SAT 98
[2022-03-05] MEDS: Prazosin HCL 1 MG CAPSULE PO (20:37)
[2022-03-05] MEDS: ARIPiprazole 5 MG TABLET PO (20:37)
[2022-03-06 08:30] VITALS: BP 133/85; PULSE 88; TEMP 36.7
--- NOTE | 2022-03-06 09:20 | HO.PSYCHPN ---
Subjective Subjective Date of Service: 03/06/22 Reason For Visit: major depression Subjective Notes: Conditional Voluntary Healthcare Proxy: No Guardianship: No Medical Problems Affecting Mental Status: No Interim History: Reviewed discussion with pt's sister with pt. Yes, there are some problems, but I don't want to make issues-I love my sister and she works very hard for the family-it is just we have different lives. Pt describes finances as being one issue, however he is aware sister's partner will be contributing significantly as soon as his disability is approved and he does not worry about that. He does describe sister's adolescent son as being a behavioral problem, being up most of the night, kristy with friends, cursing, yelling, banging and making him anxious- I understand it is just his age, and this is not my sister's fault. Also reports the home is a disaster with issues with extreme disorganization which he cannot manage I am a clean organized freak I get too anxious in that house . States this again is a life choice he does not want to tw sister about-everyone should be able to live as they want he states. He has application in to [employer], where mother and grandmother live and hopes to move in soon. Reviewed medicine issue. He continues to be unsure- When it gets dark, I get feeling wierd (alcohol or not). I see things that make me afraid. Discussed some options-reports when using Sertraline he felt tired during the day. Abilify has been OK. Will trial Abilify increase beginning 03/08 as pt reports he is feeling greatly improved in milieu and being with peers and staff. Discussed this may not be an issue of medicine deficit but of environmental stress. Medication Compliance: Yes Side effects from medications: No Attending Groups: Yes Review of Systems Acute medical concerns: No Medical Review of Systems: unchanged Review of Systems Psychiatric: Reports anxiety, Reports depression, Reports visual hallucinations and Reports suicidal ideation (denies currently, reports he is feeling safe on M5.) Mental Status Exam Mental Status Exam Patient Appearance: Appropriate Patient Orientation: Person, Place and Time Level of Consciousness: Alert Patient Behavior: Appropriate, Talkative, Cooperative and Good Eye Contact Mood Description: Depressed Affect Description: Flat Patient Cognition Impaired: No Ability to Follow Directions: Good Speech Pattern: Spontaneous Speech Memory Description: Intact Hallucinations: Visual (hx-denies this sx on the unit) Delusions: Not Present Thought Process: Rumination Thought Content: positive for Circumstantial, positive for Goal Oriented and positive for Suicidal Ideation (denies while on M5) Depressive Symptoms: Diff. Making Decisions, Hopelessness and Thoughts of /Suicide (denies today) Judgement: Fair Diagnostics Vital Signs (24Hr): Vital Signs - 24 hr 03/05/22 18:00 Temperature 97.6 F Pulse Rate 102 H Respiratory Rate 16 Blood Pressure 119/78 Pulse Oximetry 98 Oxygen Delivery Method Room Air BMI result Body Mass Index 47.3 Labs Results: 03/04/22 01:45 03/04/22 01:45 Labs: Laboratory Results - last 48 hr 03/05/22 03/05/22 03/05/22 08:19 08:19 08:19 Estimat Average Glucose 123 Hemoglobin A1c % 5.9 Magnesium 2.1 Triglycerides 109 Cholesterol 208 D LDL Cholesterol, Calc 155 HDL Cholesterol 32 Vitamin B12 445 Folate 9.5 TSH 0.94 Free T4 0.98 Medications Medications Current Medications Acetaminophen (Acetaminophen 325 Mg Tablet) 650 mg PO Q6H PRN PRN Reason: Headache/Pain Mild Scale (1-3) Al Hydroxide/Mg Hydroxide (Magnesium Hydrox/Alum Hydrox 30 Ml Oral.Susp) 30 ml PO Q6H PRN PRN Reason: Heartburn/Nausea Aripiprazole (Aripiprazole 5 Mg Tablet) 5 mg PO BEDTIME [facility] Last Admin: 03/05/22 20:37 Dose: 5 mg Atorvastatin Calcium (Atorvastatin Calcium 20 Mg Tablet) 20 mg PO DAILY [facility] Last Admin: 03/05/22 08:46 Dose: 20 mg Docusate Sodium (Docusate Sodium 100 Mg Capsule) 100 mg PO BID [facility] Last Admin: 03/05/22 20:37 Dose: 100 mg Hydroxyzine HCl (Hydroxyzine Hcl 25 Mg Tablet) 25 mg PO Q6H PRN PRN Reason: Anxiety Lisinopril (Lisinopril 20 Mg Tablet) 20 mg PO DAILY [facility]; Protocol Last Admin: 03/05/22 08:46 Dose: 20 mg Magnesium Hydroxide (Milk Of Magnesia 30 Ml Oral.Susp) 30 ml PO DAILY PRN PRN Reason: Constipation Metformin HCl (Metformin Hcl 500 Mg Tablet) 500 mg PO BID [facility] Last Admin: 03/05/22 20:37 Dose: 500 mg Prazosin HCl (Prazosin Hcl 1 Mg Capsule) 1 mg PO BEDTIME [facility]; Protocol Last Admin: 03/05/22 20:37 Dose: 1 mg Trazodone HCl (Trazodone Hcl 50 Mg Tablet) 50 mg PO BEDTIME PRN PRN Reason: Insomnia Allergies Allergies Allergy/AdvReac Type Severity Reaction Status Date / Time No Known Allergies Allergy Verified 02/06/22 10:44 Assessment & Plan Assessment & Plan (1) Severe recurrent major depression: Status: Acute Code(s): F33.2 - Major depressive disorder, recurrent severe without psychotic features Plan 03/06/22- Continue current regime Increase Abilify to 10 mg HS on 03/08/22 I spent minutes with the patient and/or on the patient floor today, greater than?50% of which was spent counseling/coordinating care. Patient educated on: therapeutic strategies Informed Consent: understands and further education needed Reason for contiued inpatient stay Substantial Risk for: harm to self and med/psych decompensation
[2022-03-06] MEDS: lisinopriL 20 MG TABLET PO (09:42)
[2022-03-06] MEDS: Docusate Sodium 100 MG CAPSULE PO ×2 (09:42→20:24)
[2022-03-06] MEDS: metFORMIN HCl 500 MG TABLET PO ×2 (09:42→20:24)
[2022-03-06] MEDS: Atorvastatin Calcium 20 MG TABLET PO (09:42)
[2022-03-06] MEDS: ARIPiprazole 5 MG TABLET PO (20:24)
[2022-03-06] MEDS: Prazosin HCL 1 MG CAPSULE PO (20:24)
[2022-03-06 22:00] VITALS: BP 170/93; PULSE 86; TEMP 36.4
[2022-03-07 08:50] VITALS: BP 136/92; PULSE 94; RESP 20; TEMP 36.9; O2SAT 95
[2022-03-07] MEDS: Docusate Sodium 100 MG CAPSULE PO ×2 (08:56→21:19)
[2022-03-07] MEDS: lisinopriL 20 MG TABLET PO (08:56)
[2022-03-07] MEDS: metFORMIN HCl 500 MG TABLET PO ×2 (08:56→21:19)
[2022-03-07] MEDS: Atorvastatin Calcium 20 MG TABLET PO (08:56)
--- NOTE | 2022-03-07 11:47 | P.PNPSI_ITS ---
Subjective Subjective Date of Service: 03/07/22 Reason For Visit: major depression Subjective Notes: Conditional Voluntary Healthcare Proxy: No Guardianship: No Medical Problems Affecting Mental Status: No Interim History: Patient was seen and discussed in rounds today. Records and plans were reviewed. No complaints of anxiety or depression. Still having some intrusive thinking. No SI. No side effects. Eating and sleeping adequately. No changes were made today. He is tolerating the higher dose of Abilify well Medication Compliance: Yes Mental Status Exam Mental Status Exam Patient Appearance: Appropriate Patient Orientation: Person, Place and Time Level of Consciousness: Alert Patient Behavior: Appropriate, Talkative, Cooperative and Good Eye Contact Mood Description: Depressed Affect Description: Flat Patient Cognition Impaired: No Ability to Follow Directions: Good Speech Pattern: Spontaneous Speech Memory Description: Intact Hallucinations: Visual (hx-denies this sx on the unit) Delusions: Not Present Thought Process: Rumination Thought Content: positive for Circumstantial, positive for Goal Oriented and positive for Suicidal Ideation (denies while on M5) Depressive Symptoms: Diff. Making Decisions, Hopelessness and Thoughts of /Suicide (denies today) Judgement: Fair Diagnostics Vital Signs (24Hr): Vital Signs - 24 hr 03/06/22 22:00 03/07/22 08:50 Temperature 97.6 F 98.4 F Pulse Rate 86 94 Respiratory Rate 20 Blood Pressure 170/93 H 136/92 H Pulse Oximetry 95 Oxygen Delivery Method Room Air BMI result Body Mass Index 47.3 Labs Results: 03/04/22 01:45 03/04/22 01:45 Medications Medications Current Medications Acetaminophen (Acetaminophen 325 Mg Tablet) 650 mg PO Q6H PRN PRN Reason: Headache/Pain Mild Scale (1-3) Al Hydroxide/Mg Hydroxide (Magnesium Hydrox/Alum Hydrox 30 Ml Oral.Susp) 30 ml PO Q6H PRN PRN Reason: Heartburn/Nausea Aripiprazole (Aripiprazole 5 Mg Tablet) 5 mg PO BEDTIME [facility] Stop: 03/08/22 08:00 Last Admin: 03/06/22 20:24 Dose: 5 mg Aripiprazole (Aripiprazole 10 Mg Tablet) 10 mg PO BEDTIME [facility] Atorvastatin Calcium (Atorvastatin Calcium 20 Mg Tablet) 20 mg PO DAILY [facility] Last Admin: 03/07/22 08:56 Dose: 20 mg Docusate Sodium (Docusate Sodium 100 Mg Capsule) 100 mg PO BID [facility] Last Admin: 03/07/22 08:56 Dose: 100 mg Hydroxyzine HCl (Hydroxyzine Hcl 25 Mg Tablet) 25 mg PO Q6H PRN PRN Reason: Anxiety Lisinopril (Lisinopril 20 Mg Tablet) 20 mg PO DAILY [facility]; Protocol Last Admin: 03/07/22 08:56 Dose: 20 mg Magnesium Hydroxide (Milk Of Magnesia 30 Ml Oral.Susp) 30 ml PO DAILY PRN PRN Reason: Constipation Metformin HCl (Metformin Hcl 500 Mg Tablet) 500 mg PO BID [facility] Last Admin: 03/07/22 08:56 Dose: 500 mg Prazosin HCl (Prazosin Hcl 1 Mg Capsule) 1 mg PO BEDTIME [facility]; Protocol Last Admin: 03/06/22 20:24 Dose: 1 mg Trazodone HCl (Trazodone Hcl 50 Mg Tablet) 50 mg PO BEDTIME PRN PRN Reason: Insomnia Allergies Allergies Allergy/AdvReac Type Severity Reaction Status Date / Time No Known Allergies Allergy Verified 02/06/22 10:44 Assessment & Plan Assessment & Plan (1) Severe recurrent major depression: Status: Acute Code(s): F33.2 - Major depressive disorder, recurrent severe without psychotic features Plan 03/06/22- Continue current regime Increase Abilify to 10 mg HS on 03/08/2203/07: Continue current regimen and plans I spent minutes with the patient and/or on the patient floor today, greater than?50% of which was spent counseling/coordinating care. Reason for contiued inpatient stay Substantial Risk for: med/psych decompensation
[2022-03-07 17:04] VITALS: BP 155/96; PULSE 114; RESP 18; TEMP 36.7; O2SAT 96
[2022-03-07 21:00] VITALS: BP 139/73; PULSE 90
[2022-03-07] MEDS: ARIPiprazole 5 MG TABLET PO (21:19)
[2022-03-07] MEDS: Prazosin HCL 1 MG CAPSULE PO (21:19)
[2022-03-08 08:46] VITALS: BP 165/98; PULSE 88; RESP 20; TEMP 36.6; O2SAT 94
[2022-03-08] MEDS: lisinopriL 20 MG TABLET PO (08:50)
[2022-03-08] MEDS: Docusate Sodium 100 MG CAPSULE PO ×2 (08:51→19:29)
[2022-03-08] MEDS: Atorvastatin Calcium 20 MG TABLET PO (08:51)
[2022-03-08] MEDS: metFORMIN HCl 500 MG TABLET PO ×2 (08:52→19:29)
--- NOTE | 2022-03-08 09:36 | HO.PSYCHPN ---
Subjective Subjective Date of Service: 03/08/22 Reason For Visit: major depression Subjective Notes: Conditional Voluntary Healthcare Proxy: No Guardianship: No Medical Problems Affecting Mental Status: No Interim History: Patient was seen and discussed in rounds today. Records and plans were reviewed. He has been stable, social. No complaints of anxiety or depression. He asked about his discharge planning which we will review with his providers tomorrow. No complaints or side effects. Eating and sleeping well. No changes were made today Medication Compliance: Yes Review of Systems Review of Systems Yes all other systems are reviewed and are negative Mental Status Exam Mental Status Exam Patient Appearance: Appropriate Patient Orientation: Person, Place and Time Level of Consciousness: Alert Patient Behavior: Appropriate, Talkative, Cooperative and Good Eye Contact Mood Description: Depressed Affect Description: Flat Patient Cognition Impaired: No Ability to Follow Directions: Good Speech Pattern: Spontaneous Speech Memory Description: Intact Hallucinations: Visual (hx-denies this sx on the unit) Delusions: Not Present Thought Process: Rumination Thought Content: positive for Circumstantial, positive for Goal Oriented and positive for Suicidal Ideation (denies while on M5) Depressive Symptoms: Diff. Making Decisions, Hopelessness and Thoughts of /Suicide (denies today) Judgement: Fair Diagnostics Vital Signs (24Hr): Vital Signs - 24 hr 03/07/22 17:04 03/07/22 21:00 03/08/22 08:46 Temperature 98.1 F 97.8 F Pulse Rate 114 H 90 88 Respiratory Rate 18 20 Blood Pressure 155/96 H 139/73 165/98 H Pulse Oximetry 96 94 Oxygen Delivery Method Room Air Room Air BMI result Body Mass Index 47.3 Labs Results: 03/04/22 01:45 03/04/22 01:45 Medications Medications Current Medications Acetaminophen (Acetaminophen 325 Mg Tablet) 650 mg PO Q6H PRN PRN Reason: Headache/Pain Mild Scale (1-3) Al Hydroxide/Mg Hydroxide (Magnesium Hydrox/Alum Hydrox 30 Ml Oral.Susp) 30 ml PO Q6H PRN PRN Reason: Heartburn/Nausea Aripiprazole (Aripiprazole 10 Mg Tablet) 10 mg PO BEDTIME [facility] Atorvastatin Calcium (Atorvastatin Calcium 20 Mg Tablet) 20 mg PO DAILY [facility] Last Admin: 03/08/22 08:51 Dose: 20 mg Docusate Sodium (Docusate Sodium 100 Mg Capsule) 100 mg PO BID [facility] Last Admin: 03/08/22 08:51 Dose: 100 mg Hydroxyzine HCl (Hydroxyzine Hcl 25 Mg Tablet) 25 mg PO Q6H PRN PRN Reason: Anxiety Lisinopril (Lisinopril 20 Mg Tablet) 20 mg PO DAILY [facility]; Protocol Last Admin: 03/08/22 08:50 Dose: 20 mg Magnesium Hydroxide (Milk Of Magnesia 30 Ml Oral.Susp) 30 ml PO DAILY PRN PRN Reason: Constipation Metformin HCl (Metformin Hcl 500 Mg Tablet) 500 mg PO BID [facility] Last Admin: 03/08/22 08:52 Dose: 500 mg Prazosin HCl (Prazosin Hcl 1 Mg Capsule) 1 mg PO BEDTIME [facility]; Protocol Last Admin: 03/07/22 21:19 Dose: 1 mg Trazodone HCl (Trazodone Hcl 50 Mg Tablet) 50 mg PO BEDTIME PRN PRN Reason: Insomnia Allergies Allergies Allergy/AdvReac Type Severity Reaction Status Date / Time No Known Allergies Allergy Verified 02/06/22 10:44 Assessment & Plan Assessment & Plan (1) Severe recurrent major depression: Status: Acute Code(s): F33.2 - Major depressive disorder, recurrent severe without psychotic features Plan 03/06/22- Continue current regime Increase Abilify to 10 mg HS on 03/08/2203/07: Continue current regimen and plans 03/08: Continue current regimen and plans I spent minutes with the patient and/or on the patient floor today, greater than?50% of which was spent counseling/coordinating care. Reason for contiued inpatient stay Substantial Risk for: med/psych decompensation
--- NOTE | 2022-03-08 14:41 | PC.NURSE ---
Patient reported he had found a tick on his buttock and had removed it- patient brought to nurse's station. He stated that the tick had been embeeded when he removed it. notified.
[2022-03-08 16:59] VITALS: BP 152/89; PULSE 98; RESP 20; TEMP 36.7; O2SAT 97
[2022-03-08 19:15] VITALS: BP 127/78; PULSE 98
[2022-03-08] MEDS: Prazosin HCL 1 MG CAPSULE PO (19:29)
[2022-03-08] MEDS: ARIPiprazole 10 MG TABLET PO (19:29)
[2022-03-09 06:00] VITALS: BP 142/86; PULSE 94; RESP 16; O2SAT 97
[2022-03-09] MEDS: Docusate Sodium 100 MG CAPSULE PO ×2 (08:33→20:41)
[2022-03-09] MEDS: metFORMIN HCl 500 MG TABLET PO ×2 (08:33→20:41)
[2022-03-09] MEDS: lisinopriL 20 MG TABLET PO (08:33)
[2022-03-09] MEDS: Atorvastatin Calcium 20 MG TABLET PO (08:33)
--- NOTE | 2022-03-09 09:00 | ECG_ITS ---
Test Reason : CHECK QTC Blood Pressure : / mmHG Vent. Rate : 088 BPM Atrial Rate : 088 BPM P-R Int : 162 ms QRS Dur : 104 ms QT Int : 356 ms P-R-T Axes : 058 016 046 degrees QTc Int : 430 ms Normal sinus rhythm Normal ECG When compared with ECG of 31-JAN-2022 14:18, No significant change was found Referred By: Beth Moran Electronically Signed By:JACK RIDDLE
--- NOTE | 2022-03-09 16:50 | HO.PSYCHPN ---
Subjective Subjective Date of Service: 03/09/22 Reason For Visit: major depression Subjective Notes: Helms Warning Interim History: Patient seen and discussed with team. Patient evaluated today and upon interview pt asks to go home, says he has a job interview tomorrow morning, has financial stress so this job is important to him. Reports his AH are nothing, theyre not there. Denies SI. Notices some sedation on his medications, says he sleeps a lot despite using cpap. Feels tired in the morning. Does not want med changes. May need to follow up with pediatric physician assistant, consider having his cpap looked at. In the milieu, patient is safe and appropriate in behavior. Denies SI/SIB/HI upon inquiry. Denies irritability or assaultive ideation. Says he feels safe. Medication Compliance: Yes Side effects from medications: No Attending Groups: Yes Review of Systems Acute medical concerns: No Medical Review of Systems: unchanged Mental Status Exam Mental Status Exam Narrative: Patient Appearance: Appropriate Patient Orientation: Person, Place and Time Level of Consciousness: Alert Patient Behavior: Appropriate, Talkative, Cooperative and Good Eye Contact Mood Description: good Affect Description: Flat Patient Cognition Impaired: No Ability to Follow Directions: Good Speech Pattern: Spontaneous Speech Memory Description: Intact Hallucinations: Visual (hx-denies this sx on the unit) Delusions: Not Present Thought Process: Rumination Thought Content: positive for Circumstantial, positive for Goal Oriented and positive for Suicidal Ideation (denies while on M5) Depressive Symptoms: Diff. Making Decisions, Hopelessness and Thoughts of /Suicide (denies today) Judgment: Fair Diagnostics Vital Signs (24Hr): Vital Signs - 24 hr 03/08/22 16:59 03/08/22 19:15 03/09/22 06:00 Temperature 98.1 F Pulse Rate 98 98 94 Respiratory Rate 20 16 Blood Pressure 152/89 H 127/78 142/86 H Pulse Oximetry 97 97 Oxygen Delivery Method Room Air Room Air BMI result Body Mass Index 47.3 Labs Results: 03/04/22 01:45 03/04/22 01:45 Medications Medications Current Medications Acetaminophen (Acetaminophen 325 Mg Tablet) 650 mg PO Q6H PRN PRN Reason: Headache/Pain Mild Scale (1-3) Al Hydroxide/Mg Hydroxide (Magnesium Hydrox/Alum Hydrox 30 Ml Oral.Susp) 30 ml PO Q6H PRN PRN Reason: Heartburn/Nausea Aripiprazole (Aripiprazole 10 Mg Tablet) 10 mg PO BEDTIME [facility] Last Admin: 03/08/22 19:29 Dose: 10 mg Atorvastatin Calcium (Atorvastatin Calcium 20 Mg Tablet) 20 mg PO DAILY [facility] Last Admin: 03/09/22 08:33 Dose: 20 mg Docusate Sodium (Docusate Sodium 100 Mg Capsule) 100 mg PO BID [facility] Last Admin: 03/09/22 08:33 Dose: 100 mg Doxycycline Hyclate (Doxycycline Hyclate 100 Mg Tablet) 100 mg PO Q12H [facility] Last Admin: 03/09/22 11:11 Dose: 100 mg Hydroxyzine HCl (Hydroxyzine Hcl 25 Mg Tablet) 25 mg PO Q6H PRN PRN Reason: Anxiety Lisinopril (Lisinopril 20 Mg Tablet) 20 mg PO DAILY [facility]; Protocol Last Admin: 03/09/22 08:33 Dose: 20 mg Magnesium Hydroxide (Milk Of Magnesia 30 Ml Oral.Susp) 30 ml PO DAILY PRN PRN Reason: Constipation Metformin HCl (Metformin Hcl 500 Mg Tablet) 500 mg PO BID [facility] Last Admin: 03/09/22 08:33 Dose: 500 mg Prazosin HCl (Prazosin Hcl 1 Mg Capsule) 1 mg PO BEDTIME [facility]; Protocol Last Admin: 03/08/22 19:29 Dose: 1 mg Trazodone HCl (Trazodone Hcl 50 Mg Tablet) 50 mg PO BEDTIME PRN PRN Reason: Insomnia Allergies Allergies Allergy/AdvReac Type Severity Reaction Status Date / Time No Known Allergies Allergy Verified 02/06/22 10:44 Assessment & Plan Assessment & Plan (1) Severe recurrent major depression: Status: Acute Code(s): F33.2 - Major depressive disorder, recurrent severe without psychotic features Plan 03/06/22- Continue current regime Increase Abilify to 10 mg HS on 03/08/22 7: Continue current regimen and plans 03/08: Continue current regimen and plans 03/09: Continue current regimen, pt is advocating for discharge, will follow up with SW in the AM I spent minutes with the patient and/or on the patient floor today, greater than?50% of which was spent counseling/coordinating care. Patient educated on: medication risk/benefits Reason for contiued inpatient stay Substantial Risk for: med/psych decompensation
[2022-03-09 18:00] VITALS: BP 142/86; PULSE 94; TEMP 37; O2SAT 98
[2022-03-09] MEDS: Prazosin HCL 1 MG CAPSULE PO (20:40)
[2022-03-09] MEDS: ARIPiprazole 10 MG TABLET PO (20:41)
[2022-03-10] MEDS: Docusate Sodium 100 MG CAPSULE PO (08:48)
[2022-03-10] MEDS: metFORMIN HCl 500 MG TABLET PO (08:48)
[2022-03-10] MEDS: lisinopriL 20 MG TABLET PO (08:48)
[2022-03-10] MEDS: Atorvastatin Calcium 20 MG TABLET PO (08:48)
--- NOTE | 2022-03-10 18:33 | P.DS_ITS ---
DS: Providers Provider Date of Service: 03/10/22 Date of admission: 03/04/22 15:14 Date of discharge: 03/10/22 Primary care physician: Unknown Physician Admitting clinician: Beth Moran Attending physician on admission: Jarrod Lerma Attending physician on discharge: Jarrod Lerma Discharging clinician: Beth Moran DS: Diagnosis Discharge Diagnosis (1) Severe recurrent major depression: Status: Acute DS: Medications Discharge Medications Home Medications: Home Medications Medication Instructions Recorded Confirmed atorvastatin 20 mg tablet 1 tab PO DAILY 03/04/22 03/04/22 docusate sodium 100 mg capsule 1 cap PO BID 03/04/22 03/04/22 lisinopril 20 mg tablet 1 tab PO DAILY 03/04/22 03/04/22 metformin 500 mg tablet 1 tab PO BID 03/04/22 03/04/22 prazosin 1 mg capsule 1 cap PO BEDTIME 03/04/22 03/04/22 Previous Rx's Medication Instructions Recorded aripiprazole 10 mg tablet 10 mg PO BEDTIME #30 tabs 03/10/22 doxycycline hyclate 100 mg tablet 100 mg PO Q12H #14 tabs 03/10/22 Mental Status Exam Mental Status Exam Patient Appearance: Appropriate Patient Orientation: Person, Place, Time and Situation Level of Consciousness: Alert Patient Behavior: Appropriate, Talkative, Cooperative and Good Eye Contact Mood Description: Appropriate Affect Description: Appropriate Patient Cognition Impaired: No Ability to Follow Directions: Good Speech Pattern: Spontaneous Speech Memory Description: Intact Hallucinations: Visual (hx-denies this sx on the unit) Delusions: Not Present Thought Process: Intact and Goal Oriented Thought Content: positive for Intact, positive for Goal Oriented and positive for Suicidal Ideation (denies while on M5) Depressive Symptoms: Thoughts of /Suicide (denies today) Judgement: Good Data Data Completed and Pending Completed studies during hospitalization [Text1]: 03/04/22 03/04/22 03/04/22 01:03 01:13 01:45 WBC RBC Hgb Hct MCV MCH MCHC RDW Plt Count MPV Immature Gran % (Auto) Neut % (Auto) Lymph % (Auto) Russell % (Auto) Eos % (Auto) Baso % (Auto) Lymph # (Auto) Russell # (Auto) Eos # (Auto) Baso # (Auto) Abs Immat Gran (auto) Absolute Neuts (auto) Absolute Nucleated RBC Nucleated RBC % (auto) Sodium 140 Potassium 4.0 Chloride 108 Carbon Dioxide 24 Anion Gap 12 BUN 15 Creatinine 0.91 Estim Creat Clear Calc 145.9 Estimated GFR > 60 POC Glucose 97 Random Glucose 123 H Estimat Average Glucose Hemoglobin A1c % Calcium 9.2 D Magnesium 2.2 Total Bilirubin 0.4 Direct Bilirubin 0.2 AST 19 ALT 33 Alkaline Phosphatase 76 Total Protein 7.9 Albumin 4.1 Triglycerides Cholesterol LDL Cholesterol, Calc HDL Cholesterol Vitamin B12 Folate TSH Free T4 Urine Opiates Screen Urine Fentanyl Screen Ur Barbiturates Screen Ur Phencyclidine Scrn Ur Amphetamines Screen U Benzodiazepines Scrn Urine Cocaine Screen U Marijuana (THC) Screen Ethyl Alcohol < 10 COVID-19 ([facility]) Negative COVID-19 Unified Office Com See Note 03/04/22 03/04/22 03/04/22 01:45 01:45 01:45 WBC 9.3 RBC 4.80 Hgb 13.9 L Hct 43.0 MCV 89.6 MCH 29.0 MCHC 32.3 RDW 13.9 Plt Count 295 MPV 11.1 Immature Gran % (Auto) 0.2 Neut % (Auto) 41.9 L Lymph % (Auto) 42.1 H Russell % (Auto) 9.7 Eos % (Auto) 5.5 H Baso % (Auto) 0.6 Lymph # (Auto) 3.9 Russell # (Auto) 0.9 Eos # (Auto) 0.5 H Baso # (Auto) 0.1 Abs Immat Gran (auto) 0.02 Absolute Neuts (auto) 3.9 Absolute Nucleated RBC 0.000 Nucleated RBC % (auto) 0.0 Sodium Potassium Chloride Carbon Dioxide Anion Gap BUN Creatinine Estim Creat Clear Calc Estimated GFR POC Glucose Random Glucose Estimat Average Glucose Hemoglobin A1c % Calcium Magnesium Total Bilirubin Direct Bilirubin AST ALT Alkaline Phosphatase Total Protein Albumin Triglycerides Cholesterol LDL Cholesterol, Calc HDL Cholesterol Vitamin B12 Folate TSH 2.51 Free T4 Urine Opiates Screen Not Detected Urine Fentanyl Screen Not Detected Ur Barbiturates Screen Not Detected Ur Phencyclidine Scrn Not Detected Ur Amphetamines Screen Not Detected U Benzodiazepines Scrn Not Detected Urine Cocaine Screen Not Detected U Marijuana (THC) Screen Not Detected Ethyl Alcohol COVID-19 ([facility]) COVID-19 Unified Office Com 03/05/22 03/05/22 03/05/22 08:19 08:19 08:19 WBC RBC Hgb Hct MCV MCH MCHC RDW Plt Count MPV Immature Gran % (Auto) Neut % (Auto) Lymph % (Auto) Russell % (Auto) Eos % (Auto) Baso % (Auto) Lymph # (Auto) Russell # (Auto) Eos # (Auto) Baso # (Auto) Abs Immat Gran (auto) Absolute Neuts (auto) Absolute Nucleated RBC Nucleated RBC % (auto) Sodium Potassium Chloride Carbon Dioxide Anion Gap BUN Creatinine Estim Creat Clear Calc Estimated GFR POC Glucose Random Glucose Estimat Average Glucose 123 Hemoglobin A1c % 5.9 Calcium Magnesium 2.1 Total Bilirubin Direct Bilirubin AST ALT Alkaline Phosphatase Total Protein Albumin Triglycerides 109 Cholesterol 208 D LDL Cholesterol, Calc 155 HDL Cholesterol 32 Vitamin B12 445 Folate 9.5 TSH 0.94 Free T4 0.98 Urine Opiates Screen Urine Fentanyl Screen Ur Barbiturates Screen Ur Phencyclidine Scrn Ur Amphetamines Screen U Benzodiazepines Scrn Urine Cocaine Screen U Marijuana (THC) Screen Ethyl Alcohol COVID-19 ([facility]) COVID-19 Clin Com DS: Summary Hospital Course Hospital Course: Admission to adult psychiatry for exacerbation of symptoms of recurrent major depression and psychosocial stressors. Pt, prior to admission, stopped antidepressant therapy, citing sedation and SE. He requested to continue with Abilify, which he found helpful and asked to titrate this dose. This was completed, tolerated by pt. Pt utilized the milieu to dicuss current stressors and will return to out patient care. Time spent discussing smoking cessation with patient: 3 to 10 minutes Status at Discharge Functional status at discharge: independent ambulation Overall status at discharge: patient is back to baseline Time Spent with Patient Time attestation: Total time spent providing and/or coordinating discharge services: 30 Time spent: Greater than 30 minutes Discharge Plan Discharge Patient Disposition: Home, Self-Care Discharge Diagnosis: Recurrent, severe major depression Alcohol Use Disorder, moderate Referrals: [facility] (Day Treatment Program) [Other] - 1 Week (You can return to the day treatment program at [facility] upon discharge) Primary Care Physician: Larissa Rodriguez CNP [Other] - 1 Week Psychiatric Medication Management: Kwasi Patino APRN [Other] - 04/01/22 9:30 am (This is a Telehealth appointment. You will receive a phone call at the scheduled time of your appointment) Discharge Medications: New doxycycline hyclate 100 mg Tablet 100 mg PO Q12H Qty: 14 0RF aripiprazole 10 mg Tablet 10 mg PO BEDTIME Qty: 30 0RF Continued metformin 500 mg tablet 1 tab PO BID atorvastatin 20 mg tablet 1 tab PO DAILY prazosin 1 mg capsule 1 cap PO BEDTIME lisinopril 20 mg tablet 1 tab PO DAILY docusate sodium 100 mg capsule 1 cap PO BID Discontinued aripiprazole 5 mg tablet 1 tab PO BEDTIME Discharge Orders: Discharge Order (Routine); Ordered 03/10/22 Ordered By: Beth Moran Diet: Advance to usual diet Activity on Discharge: As tolerated Stand Alone Forms: Patient Portal Discharge page, Community Support Care Plan Goals: Mood stabilization Work on coping skills Abstinence from alcohol Health Concerns: Recurrent, severe, major depression Alcohol Use Disorder Plan of Treatment: Take medications as directed Attend follow up appointments At this time, you have decided NOT to re-start your antidepressant, but will [facility] needed [phone] Call and or return as needed Assessment: non psychotic non suicidal Discharge Date/Time: 03/10/22 13:46
== END 2022-03-10 13:46 | disposition home or self-care (01) | DRG 885 ==
LOC: HO.ED 01:16 → HO.PM5 15:17
PROVIDERS: Admitting Provider Psychiatry & Neurology Psychiatry; Emergency Provider Emergency Medicine; Visit Provider Clinical Nurse Specialist Psychiatric/Mental Health, Adult
DX: F33.2 Major depressive disorder, recurrent severe without psychotic features (principal); R45.851 Suicidal ideations; Z20.822 Contact with and (suspected) exposure to COVID-19; Z91.14 Patient's other noncompliance with medication regimen; Z87.820 Personal history of traumatic brain injury; Z79.84 Long term (current) use of oral hypoglycemic drugs; Z79.899 Other long term (current) drug therapy
CPT/HCPCS: 36415; 80048; 80061; 80076; 80307; 82077; 82607; 82746; 82947; 83036; 83735; 84439; 84443; 85025; 87635; 93005; 99285

== ENCOUNTER 2022-10-21 | Emergency (ER) | payer MEDICARE, MEDICAID, SELFPAY ==
--- NOTE | ~2022-10-21 | XR_ITS ---
EXAMINATION: XR KNEE, RIGHT CLINICAL INFORMATION: Pain COMPARISON: None TECHNIQUE: Four views of the right knee. FINDINGS: No fracture or joint effusion. Alignment is anatomic. Joint spaces are well maintained. No abnormal soft tissue calcification. Soft tissue swelling anterior to the patella and patellar tendon. XR/XR knee RT 4V IMPRESSION: * No acute fracture or dislocation. * Soft tissue swelling anterior to the patella and patellar tendon.
[2022-10-21 00:24] VITALS: BP 124/74; BP 125/73; PULSE 87; PULSE 90; RESP 16; TEMP 36.4; O2SAT 96; O2SAT 98; BMI 46.0
--- NOTE | 2022-10-21 01:52 | ED.FALL ---
HPI - Fall General Chief Complaint: Fall Stated Complaint: knee pain after fall Time Seen by Provider: 10/21/22 01:34 Source: patient Mode of arrival: ambulatory Limitations: no limitations History of Present Illness HPI Narrative: Patient was asleep got up went to the bathroom and tangled on the clothes on the ground and fell landing on his right knee complaining of pain and swelling of the right knee no other injury patient has residual weakness the right side secondary to TBI Related Data Home Medications Medication Instructions Recorded Confirmed atorvastatin 20 mg tablet 1 tab PO DAILY 03/04/22 03/04/22 docusate sodium 100 mg capsule 1 cap PO BID 03/04/22 03/04/22 lisinopril 20 mg tablet 1 tab PO DAILY 03/04/22 03/04/22 metformin 500 mg tablet 1 tab PO BID 03/04/22 03/04/22 prazosin 1 mg capsule 1 cap PO BEDTIME 03/04/22 03/04/22 Previous Rx's Medication Instructions Recorded aripiprazole 10 mg tablet 10 mg PO BEDTIME #30 tabs 03/10/22 doxycycline hyclate 100 mg tablet 100 mg PO Q12H #14 tabs 03/10/22 ibuprofen 600 mg tablet 600 mg PO Q6H PRN fever or pain 10/21/22 #30 tabs Allergies Allergy/AdvReac Type Severity Reaction Status Date / Time No Known Allergies Allergy Verified 02/06/22 10:44 Review of Systems Review of Systems: Yes all other systems are reviewed and are negative PMFSH Past Medical History Medical History Severe recurrent major depression TBI (traumatic brain injury) Surgical History H/O left knee surgery H/O splenectomy Family History Family History Maternal Grandfather Cancer of unknown origin Father Prostate cancer Social History Social History Household Members: Family Household Members Other:: Sister Housing: House Do you presently have visiting nurse or other home services: No Alcohol intake: current Alcohol intake frequency: does not drink Patient Tobacco Use Status: Never used Tobacco e-Cigarette/Vaping Use: Never Used Second Hand Smoke Exposure: No Use of substances other than those prescribed or required for medical reasons: No Substance Use Type: Caffiene Advance Directives: No Advance Directives Information Provided: Yes service: No Sexual orientation: Straight/Heterosexual Physical Exam Vital Signs: Vital Signs: Last Vital Signs Temp 97.6 F 10/21/22 00:24 Pulse 77 10/21/22 02:21 Resp 16 10/21/22 02:21 BP 131/77 10/21/22 02:21 Pulse Ox 98 10/21/22 02:21 O2 Del Method 10/21/22 02:21 BMI result Body Mass Index 46.0 Appearance: Alert. Oriented X3. No acute distress. ENT: Pharynx normal. Oral Mucosa moist Neck: Normal inspection. Neck supple. CVS: Normal heart rate and rhythm. Pulses normal. Respiratory: No respiratory distress. Equal air entry bilateral, no wheezing/rales/rhonchi Abdomen: Soft and nontender. Bowel sounds are present, no mass palpable, no CVA tenderness Skin: Skin warm and dry. Normal skin color. Normal skin turgor. Extremities: No lower extremity edema. No calf tenderness diffuse tenderness right knee no deformity no effusion Neuro: Oriented X 3. No motor deficit. Medications Administered Discontinued Medications Generic Name Dose Route Start Last Admin Trade Name Freq PRN Reason Stop Dose Admin Ibuprofen 800 mg 10/21/22 02:44 10/21/22 03:36 Ibuprofen 800 Mg Tablet PO 10/21/22 02:45 800 mg ONCE ONE Administration Medical Decision Making Medical Decision Making MDM Narrative: X-ray of left knee negative for fracture patient ambulatory and steady gait mark wrap was applied to give ibuprofen for R knee contusion Discharge Plan Discharge Clinical Impression: Contusion of knee, right Patient Disposition: Home, Self-Care Instructions: Knee Pain (ED) Additional Instructions: Mark wrap for support Ibuprofen for pain Follow with PCP if not better Prescriptions: New ibuprofen 600 mg tablet 600 mg PO Q6H PRN (Reason: fever or pain) Qty: 30 0RF No Action metformin 500 mg tablet 1 tab PO BID atorvastatin 20 mg tablet 1 tab PO DAILY prazosin 1 mg capsule 1 cap PO BEDTIME lisinopril 20 mg tablet 1 tab PO DAILY docusate sodium 100 mg capsule 1 cap PO BID doxycycline hyclate 100 mg Tablet 100 mg PO Q12H Qty: 14 0RF aripiprazole 10 mg Tablet 10 mg PO BEDTIME Qty: 30 0RF Interventions: ED Discharge Assessment Last Done: 10/21/22 03:29 Discharge Date/Time: 10/21/22 03:40
[2022-10-21 02:21] VITALS: BP 131/77; PULSE 77; RESP 16; O2SAT 98
--- NOTE | 2022-10-21 02:27 | PC.NURSE ---
pt was sleeping, re-vital and assess pain, pt denies any pain. Will continue to monitor.
[2022-10-21] MEDS: Ibuprofen 800 MG TABLET PO (03:36)
--- NOTE | 2022-10-21 03:39 | PC.NURSE ---
Mark wrap applied, pt medicated per OCT.
== END 2022-10-21 03:40 | disposition home or self-care (01) ==
PROVIDERS: Emergency Provider Internal Medicine
DX: S80.01XA Contusion of right knee, initial encounter (principal); W18.39XA Other fall on same level, initial encounter; E11.9 Type 2 diabetes mellitus without complications; I10 Essential (primary) hypertension; G47.33 Obstructive sleep apnea (adult) (pediatric); E66.01 Morbid (severe) obesity due to excess calories; Z68.42 Body mass index [BMI] 45.0-49.9, adult; Z87.820 Personal history of traumatic brain injury; Z99.89 Dependence on other enabling machines and devices; Z79.02 Long term (current) use of antithrombotics/antiplatelets; Z79.899 Other long term (current) drug therapy; Z79.84 Long term (current) use of oral hypoglycemic drugs; Y93.89 Activity, other specified; Y92.012 Bathroom of single-family (private) house as the place of occurrence of the external cause; Y99.9 Unspecified external cause status
CPT/HCPCS: 73564; 99283; 99284

== ENCOUNTER 2023-05-26 17:26 | Inpatient (IN) | payer MEDICARE, OTHER, SELFPAY ==
--- NOTE | ~2023-05-26 | US_ITS ---
EXAMINATION: US VENOUS ULTRASOUND WITH DOPPLER LOWER EXTREMITY, RIGHT CLINICAL INFORMATION: Right lower extremity pain and edema. COMPARISON: Right lower extremity venous ultrasound dated 12/31/2021. TECHNIQUE: Ultrasound of the deep veins is performed from the hip to the calf with compression sonography and color and pulse Doppler assessment. Spectral analysis with color-flow imaging is performed. FINDINGS: There is normal venous compression and respiratory variation and augmented flow. The visualized common femoral vein, superficial femoral vein, profunda femoral vein, popliteal vein, and the trifurcation region shows no evidence of deep venous thrombosis. There is no significant popliteal fossa cyst. If the patient's symptoms persist, followup ultrasound in 5 days 7 days might be of value to exclude proximal propagation from a non-visualized calf vein. US/US venous duplex LE RT IMPRESSION: No DVT demonstrated in the right lower extremity.
--- NOTE | ~2023-05-26 | XR_ITS ---
EXAMINATION: XR TIBIA AND FIBULA, RIGHT CLINICAL INFORMATION: Erythema and swelling COMPARISON: None available. TECHNIQUE: AP and lateral views of the right tibia and fibula were obtained. FINDINGS: No acute fracture or dislocation. Diffuse soft tissue swelling and subcutaneous reticulation. No foreign bodies. XR/XR tibia fibula RT 2V IMPRESSION: * No acute fracture or dislocation. * Diffuse soft tissue swelling.
[2023-05-26 17:31] VITALS: BP 162/92; PULSE 102; O2SAT 98
[2023-05-26 18:08] VITALS: BP 152/88; PULSE 95; RESP 18; TEMP 37.1; O2SAT 96; BMI 44.6
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
[2023-05-26 18:58] LABS: Alanine Aminotransferase 20 U/L (0-40); Albumin Level 3.9 g/dL (3.5-5.0); Alkaline Phosphatase 75 U/L (39-117); Anion Gap 16 (12-20); Aspartate Amino Transferase 17 U/L (5-37); Bilirubin Direct 0.2 mg/dL (0.0-0.5); Bilirubin Total 0.4 mg/dL (0.0-1.0); Blood Urea Nitrogen 13 mg/dL (9-16); C Reactive Protein 14.98 mg/dL (< or = 0.50); Calcium 9.8 mg/dL (8.4-10.2); Carbon Dioxide 25 mmol/L (22-29); Chloride 102 mmol/L (96-108); Creatinine Clr Calc Pharmacy 166.1; Estimated Glomerular Filt Rate > 60; Glucose Random 93 mg/dL (60-115); Potassium 3.5 mmol/L (3.3-5.1); Sodium 139 mmol/L (135-145); Total Protein 8.4 g/dL (6.5-8.0)
[2023-05-26 19:00] LABS: Basophils Absolute Auto 0.1 X10*3/uL (0.0-0.2); Basophils Percent Auto 0.4 % (0-2); Eosinophils Absolute Auto 0.5 X10*3/uL (0.0-0.4); Eosinophils Percent Auto 3.8 % (0-4); Hemoglobin 14.4 g/dl (14.0-18.0); Imm Gran Abs Auto 0.06 X10*3/uL (0.00-0.03); Imm Gran Pct Auto 0.4 % (0.0-0.4); Lymphocytes Absolute Auto 2.9 X10*3/uL (1.2-4.9); Lymphocytes Percent Auto 20.4 % (20-40); MANUAL DIFF FLAG SCAN; Mean Corpuscular Hemoglobin 29.3 pg (27.0-33.0); Mean Corpuscular Volume 91.6 fL (80.0-98.0); Mean Platelet Volume 11.9 fL (9.4-12.4); Monocytes Absolute Auto 1.5 X10*3/uL (0.1-1.2); Monocytes Percent Auto 10.9 % (2-11); Neutrophils Percent Auto 64.1 % (45-73); Platelet Count 269 X10*3/uL (160-400); Red Blood Count 4.91 X10*6/uL (4.60-5.80); SCAN SMEAR FLAG 1; White Blood Count 14.1 X10*3/uL (4.8-10.8)
[2023-05-26 19:35] LABS: SLIDE REVIEW VERIFIED
[2023-05-26 20:25] LABS: Lactic Acid 1.2 mmol/L (0.5-2.0)
[2023-05-26 20:35] LABS: B Type Natriuretic Peptide < 10 pg/mL (<100)
[2023-05-26 21:28] LABS: Erythrocyte Sedimentation Rate 74 MM/HR (0-15)
[2023-05-26 21:49] VITALS: BP 152/86; PULSE 98; RESP 17; TEMP 36.9; O2SAT 97
[2023-05-26] MEDS: Piperacillin Sodium/Tazobactam 3.375 GM in 0.9 % Sodium Chloride 50 ML IV (23:25)
--- NOTE | 2023-05-26 23:31 | P.HPHOSP_ITS ---
History of Present Illness Date of Service: 05/26/23 Chief Complaint: Extremity redness This is a 43-year-old male with pertinent history of essential hypertension, sqr-yoghhap-qohnxbaqu diabetes mellitus, mood disorder, mixed hyperlipidemia who presents to the emergency department for evaluation of right lower extremity redness and swelling. Patient states he 1st noticed it 1 week prior to presentation. It has been progressive and associated with purulent drainage. Does have a history of cellulitis. No fever or chills. Patient denies chest discomfort, palpitations, shortness of breath, abdominal pain, changes in urinary or bowel habits. Did not try any oral antibiotics for leg infection In the emergency department, patient was found to be septic Review of Systems 2 Constitutional: Constitutional: Reports no additional constitutional complaints Cardiovascular: Cardiovascular: Reports no additional cardiovascular complaints Respiratory: Respiratory: Reports no additional respiratory complaints Gastrointestinal: Gastrointestinal: Reports no additional gastrointestinal complaints Genitourinary: Genitourinary: Reports no additional male genitourinary complaints [facility] Medical History TBI (traumatic brain injury) Severe recurrent major depression Family History Maternal Grandfather Cancer of unknown origin Father Prostate cancer Surgical History H/O left knee surgery H/O splenectomy Social History Household Members: Family Household Members Other:: Sister Housing: House Do you presently have visiting nurse or other home services: No Alcohol intake: former Patient Tobacco Use Status: Never used Tobacco Smoked in Last 30 Days: No e-Cigarette/Vaping Use: Never Used Second Hand Smoke Exposure: No Use of substances other than those prescribed or required for medical reasons: No Substance Use Type: Caffiene Advance Directives: No Advance Directives Information Provided: No service: No Sexual orientation: Straight/Heterosexual Meds Allergies Allergy/AdvReac Type Severity Reaction Status Date / Time No Known Allergies Allergy Verified 02/06/22 10:44 Home Medications Medication Instructions Recorded Confirmed Last Taken Type atorvastatin 20 mg tablet 1 tab PO DAILY 03/04/22 03/04/22 Unknown History docusate sodium 100 mg capsule 1 cap PO BID 03/04/22 03/04/22 Unknown History lisinopril 20 mg tablet 1 tab PO DAILY 03/04/22 03/04/22 Unknown History metformin 500 mg tablet 1 tab PO BID 03/04/22 03/04/22 Unknown History prazosin 1 mg capsule 1 cap PO BEDTIME 03/04/22 03/04/22 Unknown History Physical Exam 2 Vital Signs and Narrative: Vital Signs: Last Vital Signs Temp 98.4 F 05/26/23 21:49 Pulse 98 05/26/23 21:49 Resp 17 05/26/23 21:49 BP 152/86 H 05/26/23 21:49 Pulse Ox 97 05/26/23 21:49 O2 Del Method Room Air 05/26/23 21:49 BMI result Body Mass Index 44.6 Middle-aged male lying in bed in no distress Neck supple, no JVD Regular rate and rhythm, S1-S2 heard Regular breath sounds bilaterally, no wheezing or crackles appreciated Abdomen soft nontender, no guarding, no rigidity Patient is awake, alert and oriented to self, place, time and person ; no focal motor deficit Right lower extremity with erythema, swelling and warmth Psych: Normal mood No pedal edema Results Labs 05/26/23 18:39 05/26/23 18:39 Labs: Laboratory Results - last 24 hr 05/26/23 05/26/23 18:39 20:02 MCV 91.6 MCH 29.3 MCHC 32.0 RDW 14.0 Plt Count 269 MPV 11.9 Immature Gran % (Auto) 0.4 Neut % (Auto) 64.1 Lymph % (Auto) 20.4 [place] % (Auto) 10.9 Eos % (Auto) 3.8 Baso % (Auto) 0.4 Lymph # (Auto) 2.9 [place] # (Auto) 1.5 H Eos # (Auto) 0.5 H Baso # (Auto) 0.1 Abs Immat Gran (auto) 0.06 H Absolute Neuts (auto) 9.0 H Absolute Nucleated RBC 0.000 Nucleated RBC % (auto) 0.0 Smear Tech's Comments VERIFIED ESR 74 H Anion Gap 16 Estim Creat Clear Calc 166.1 Estimated GFR > 60 Random Glucose 93 Lactic Acid 1.2 Calcium 9.8 D Total Bilirubin 0.4 Direct Bilirubin 0.2 AST 17 ALT 20 Alkaline Phosphatase 75 C-Reactive Protein 14.98 H B-Natriuretic Peptide < 10 Total Protein 8.4 H Albumin 3.9 Imaging Radiologist's Impressions: Impressions Venous Duplex 05/26/23 19:05 IMPRESSION: No DVT demonstrated in the right lower extremity. Assessment and Plan (1) Cellulitis of leg, right: Status: Acute Plan This is a 43-year-old male with pertinent history of essential hypertension, xsz-tumvuot-bgjsogwxi diabetes mellitus, mood disorder, mixed hyperlipidemia who presents to the emergency department for evaluation of right lower extremity redness and swelling. #. Sepsis due to right lower extremity cellulitis. Resuscitated with IV crystalloids. Lactic acid and blood culture obtained. Initiating empiric IV vancomycin. #. Kvd-efyfzql-ewbexskql diabetes mellitus. Hold metformin and initiating Accu-Cheks with sliding scale insulin while in the hospital #. Essential hypertension. On lisinopril #. Mixed hyperlipidemia: On statin #. Obesity. Counseled regarding diet and exercise #. LETA: Continue CPAP while in the hospital Med rec pending DVT prophylaxis: Lovenox Full code Admit as inpatient and will require two night minimum hospital stay for IV antibiotics Time Spent With Patient Time: Total time managing care of this patient today ____ minutes. Quality Stroke Does the patient have a stroke diagnosis?: No VTE Prior VTE?: No VTE Risk Level:: Medical - moderate - high VTE Device Contraindication: Treatment Not Indicated VTE Drug Contraindication: N/A - Med Ordered
[2023-05-26 23:55] VITALS: BP 154/67; PULSE 91; RESP 17; TEMP 36.9; O2SAT 95
[2023-05-27] MEDS: vancomycin/NS 2,000 MG/500 ML PLAST..BAG 250 MG IV (00:30)
[2023-05-27] MEDS: 0.9 % Sodium Chloride 1,000 ML 999 ML IV (00:35)
[2023-05-27] MEDS: 0.9 % Sodium Chloride Flush 3 ML SYRINGE IVFLUSH ×4 (00:35→23:21)
[2023-05-27 01:10] VITALS: PULSE 91; O2SAT 95
[2023-05-27] MEDS: ARIPiprazole 10 MG TABLET PO (01:36)
[2023-05-27 05:38] LABS: Hematocrit 42.4 % (42.0-52.0); Hemoglobin 13.8 g/dl (14.0-18.0); Mean Corpuscular HGB Conc 32.5 g/dl (31.0-36.0); Mean Corpuscular Hemoglobin 29.6 pg (27.0-33.0); Mean Corpuscular Volume 90.8 fL (80.0-98.0); Mean Platelet Volume 11.9 fL (9.4-12.4); Platelet Count 277 X10*3/uL (160-400); Red Blood Count 4.67 X10*6/uL (4.60-5.80); Red Cell Distribution Width 14.1 % (11.0-16.0); White Blood Count 13.2 X10*3/uL (4.8-10.8)
[2023-05-27 05:50] VITALS: BP 158/91; PULSE 86; RESP 17; TEMP 36.7; O2SAT 95
[2023-05-27 05:55] LABS: Anion Gap 14 (12-20); Blood Urea Nitrogen 11 mg/dL (9-16); Calcium 8.9 mg/dL (8.4-10.2); Carbon Dioxide 24 mmol/L (22-29); Chloride 105 mmol/L (96-108); Creatinine Clr Calc Pharmacy 170.2; Estimated Glomerular Filt Rate > 60; Glucose Random 110 mg/dL (60-115); Potassium 3.6 mmol/L (3.3-5.1); Sodium 139 mmol/L (135-145)
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
--- NOTE | 2023-05-27 07:17 | PHA.PROG ---
Admission Date/Time: May 26, 2023 23:29 Indication: Skin Weight in k.15 kg Adjusted body weight in K.24 [place] body weight in K.3 Obesity Dosing Indication % IBW:OBESE Serum Creatinine - Last 168 Hours 05/26/23 05/27/23 18:39 04:44 Creatinine 0.82 0.80 Estimated CrCl and GFR - Last 168 Hours 05/26/23 05/27/23 18:39 04:44 Estim Creat Clear Calc 166.1 170.2 Estimated GFR > 60 > 60 Vancomycin Loading Dose: 2000 Current Vancomycin Dosing Regimen: 1000 mg Q12H Vancomycin Monitoring using AUC goal of 400 - 600 range with trough as surrogate marker: 445 Date and Time for next Vancomycin Level to be drawn: 05/27 Pharmacist Comments on Vancomycin Plan: Used obese model as patient is moderately obese with BMI of 44. Was stuck between 1000 mg Q12 vs Q8. chose to go with Q12H as patient is at risk of dose dumping, will get a level after 2 doses to see if Q12H is enough. Vancomycin dosing will take advantage of [employer] as a clinical decision support tool that uses Bayesian modeling to calculate individual patient's pharmacokinetic parameters and forecast the patient's drug concentration time course with the target goal AUC 24 range of 400 - 600 mg/L/hr.
[2023-05-27 08:35] LABS: Glucose, Whole Blood 99 mg/dL (60-115)
[2023-05-27] MEDS: Enoxaparin Sodium 40 MG/0.4 ML SYRINGE SUBCUT (08:56)
--- NOTE | 2023-05-27 09:13 | PC.NURSE ---
Pt resting quietly on stretcher. Food given, POC 99. Right lower leg red, warm and edematous. + pedal pulses B/L but faint on right side. Pt alert/oriented, using urinal as needed. Pharmacy notified of med rec needed.
--- NOTE | 2023-05-27 09:14 | MHC.CM.PN ---
Met w/pt to discuss d/c planning needs: pt is independent w/all care needs, has working glucometer and dm supplies, no DME or services. Pt has cell and will call friend for transportation to home. No additional services anticipated. PCP Dr. Soria, HCP declined.
--- NOTE | 2023-05-27 09:56 | PHA.MEDREC ---
Pharmacy Consult ? Medication Reconciliation Pharmacy has completed the medication reconciliation. PT CLAIMS HE IS ON METFORMIN AND LISINOPRIL. HAS NOT FILLED AT PHARMACY FOR QUITE A WHILE AND STATES HE HAS NOT REFILLS/OR A WAY TO REFILL THEM AT THIS TIME BUT STATES HE IS STILL TAKING THEM.
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
[2023-05-27 11:46] VITALS: BP 167/89; PULSE 95; RESP 18; TEMP 36.1; O2SAT 95
[2023-05-27 11:46] LABS: Glucose, Whole Blood 101 mg/dL (60-115)
[2023-05-27] MEDS: vancomycin HCL 1,000 MG in 0.9 % Sodium Chloride 250 ML 270 MG IV ×2 (12:46→23:21)
[2023-05-27 15:50] VITALS: BP 146/58; PULSE 90; RESP 20; TEMP 35.7; O2SAT 97
[2023-05-27 16:04] LABS: Glucose, Whole Blood 101 mg/dL (60-115)
[2023-05-27 19:35] VITALS: BP 138/58; PULSE 90; RESP 18; TEMP 36.1; O2SAT 98
[2023-05-27 20:37] LABS: Glucose, Whole Blood 85 mg/dL (60-115)
[2023-05-27] MEDS: Triamcinolone Acet 0.1 % Oint 15 GM TUBE 1 APPL TOPICAL (20:59)
[2023-05-27 22:19] VITALS: PULSE 88; RESP 24; O2SAT 96
[2023-05-28 03:31] VITALS: BP 134/61; PULSE 75; RESP 14; TEMP 36.2; O2SAT 96
[2023-05-28 07:18] LABS: Glucose, Whole Blood 106 mg/dL (60-115)
[2023-05-28 07:38] VITALS: BP 184/100; PULSE 90; RESP 18; TEMP 36.4; O2SAT 96
[2023-05-28] MEDS: lisinopriL 20 MG TABLET PO (08:11)
[2023-05-28] MEDS: 0.9 % Sodium Chloride Flush 3 ML SYRINGE IVFLUSH ×3 (08:11→23:27)
[2023-05-28] MEDS: Enoxaparin Sodium 40 MG/0.4 ML SYRINGE SUBCUT (08:11)
[2023-05-28] MEDS: Triamcinolone Acet 0.1 % Oint 15 GM TUBE 1 APPL TOPICAL ×2 (08:14→19:47)
[2023-05-28 10:36] LABS: Vancomycin Random 4.4 mcg/mL (15-20)
[2023-05-28 10:39] LABS: Creatinine Clr Calc Pharmacy 172.4; Estimated Glomerular Filt Rate > 60
--- NOTE | 2023-05-28 10:39 | HO.PM.IMPN ---
Subjective Subjective Date of Service: 05/28/23 Interval History: no fever leg slightly improved Review of Systems Review of Systems: Yes all other systems are reviewed and are negative Physical Exam Vital Signs: Vital Signs: Last Vital Signs Temp 97.5 F 05/28/23 07:38 Pulse 90 05/28/23 07:38 Resp 18 05/28/23 07:38 BP 184/100 H 05/28/23 07:38 Pulse Ox 96 05/28/23 07:38 O2 Del Method Room Air 05/28/23 07:38 BMI result Body Mass Index 44.6 Gen: in no acute distress HEENT: sclera anicteric, moist mucus membranes Neck: supple Lungs: clear to auscultation bilaterally Heart: regular rate and rhythm, no murmurs Abd: soft, non-tender, non-distended, obese Ext: no edema Skin: improving but still extensive erythema of right calf and lateral jeff; no fluctuance Neuro: alert and oriented x3, no focal findings Psych: appropriate affect Objective Data Active Medications Acetaminophen (Acetaminophen 325 Mg Tablet) 650 mg PO Q6H PRN PRN Reason: Pain, Mild (Pain Scale 1-3) Dextrose (Dextrose 50 % 25 Gm/50 Ml Syringe) 25 gm IVPUSH Q15M PRN; Protocol PRN Reason: per Hypoglycemia Standing Ord. Enoxaparin Sodium (Enoxaparin Sodium 40 Mg/0.4 Ml Syringe) 40 mg SUBCUT Q24H [facility] Last Admin: 05/28/23 08:11 Dose: 40 mg Documented By: CAROLE Glucose (Glucose Gel 15 Gm Gel..Gram.) 15 gm PO Q15M PRN; Protocol PRN Reason: per Hypoglycemia Standing Ord. Vancomycin HCl 1,000 mg/ (Sodium Chloride) 270 mls @ 270 mls/hr IV Q12H [facility] Last Infusion: 05/28/23 00:24 Dose: Infused Documented By: CAYLA Insulin Human Lispro (Insulin Lispro 100 Unit/Ml 3 Ml Vial) 0 unit SUBCUT QIDACHS [facility]; Protocol Last Admin: 05/28/23 07:01 Dose: Not Given Documented By: CAROLE Non-Admin Reason: No Insulin Coverage Lisinopril (Lisinopril 20 Mg Tablet) 20 mg PO DAILY [facility]; Protocol Last Admin: 05/28/23 08:11 Dose: 20 mg Documented By: CAROLE Melatonin (Melatonin 3 Mg Tablet) 6 mg PO BEDTIME PRN PRN Reason: Insomnia Ondansetron HCl (Ondansetron Hcl 4 Mg/2 Ml Vial) 4 mg IVPUSH Q8H PRN PRN Reason: Nausea and Vomiting Pharmacy Consult (Consult Rx Vancomycin Dosing) 1 each MISCELLANE DAILY PRN PRN Reason: Consult order Sodium Chloride (0.9 % Sodium Chloride Flush 3 Ml Syringe) 3 ml IVFLUSH QSHIFT [facility] Last Admin: 05/28/23 08:11 Dose: 3 ml Documented By: CAROLE Triamcinolone Acetonide (Triamcinolone Acet 0.1 % Oint 15 Gm Tube) 1 appl TOPICAL BID [facility] Last Admin: 05/28/23 08:14 Dose: 1 appl Documented By: CAROLE Labs 05/27/23 04:44 05/28/23 10:06 Labs: Laboratory Results - last 24 hr 05/27/23 05/27/23 05/27/23 11:37 16:01 20:33 Hold Purple Top Estim Creat Clear Calc Estimated GFR POC Glucose 101 101 85 Random Vancomycin 05/28/23 05/28/23 07:00 10:06 Hold Purple Top SEE NOTE Estim Creat Clear Calc 172.4 Estimated GFR > 60 POC Glucose 106 Random Vancomycin 4.4 L Microbiology Microbiology Results: Microbiology 05/26/23 20:02 Blood Culture - Preliminary Blood - Venous No growth after 24 hours. 05/26/23 18:40 Blood Culture - Preliminary Blood - Venous No growth after 24 hours. Assessment and Plan (1) Cellulitis of leg, right: Status: Acute Plan d3 43yo M with HTN, DM2 admitted for sepsis due to RLE cellulitis RLE cellulitis - vanco d3- recalculate dose for subtherapeutic trough, follow BCx, also applying topical steroid DM2 - hold MTF, give chloe-dose lispro HTN - lisinopril morbid obesity - diet/exercise counseling LETA - CPAP VTE ppx - LMWH dispo - anticipate home eventually In my clinical judgment, the patient requires continued inpatient hospitalization for the following reasons: IV ABX Time Spent With Patient Time: Total time managing care of this patient today __35__ minutes. Quality Stroke Does the patient have a stroke diagnosis?: No VTE Prior VTE?: No VTE Risk Level:: Medical - moderate - high VTE Device Contraindication: Treatment Not Indicated VTE Drug Contraindication: N/A - Med Ordered
--- NOTE | 2023-05-28 10:41 | MHC.CM.PN ---
Pt is not yet ready for DC, still on IV AB. CM to follow and assist with DC.
[2023-05-28] MEDS: vancomycin HCL 1,500 MG in 0.9 % Sodium Chloride 500 ML 333.33 MG IV ×2 (11:12→19:47)
[2023-05-28 11:36] LABS: Glucose, Whole Blood 122 mg/dL (60-115)
--- NOTE | 2023-05-28 11:40 | HE.PHANOTE ---
RE VANCO DOSING AFTER 3 DOSES (2GM LOAD AND 1GM Q12) PT WAS ONLY AT 4.4 FOR TROUGH. RENAL FUNCTION STABLE BUT DECIDED TO GIVE 1500 MG ONCE AND RECHECK LEVEL @1700 TONIGHT. PENDED ORDER FOR 1250 Q8 BUT WILL REASSESS AFTER TROUGH COMES BACK AND CONFIRM DOSE AT THAT TIME.
[2023-05-28 15:10] VITALS: BP 178/96; PULSE 92; RESP 20; TEMP 36; O2SAT 97
[2023-05-28 16:09] LABS: Glucose, Whole Blood 104 mg/dL (60-115)
[2023-05-28 17:27] LABS: Vancomycin Random 9.6 mcg/mL (15-20)
--- NOTE | 2023-05-28 18:06 | HE.PHANOTE ---
Vancomycin Dosing Level is 9.6 now. Will start vancomycin 1500 mg Q8H. Predicted AUC of 475 with a trough level of 13.9. Level is scheduled to be drawn after 2 more doses on 05/29 @ 0900. Pharmacy will continue to monitor renal function. Griselda Hernández, PharmD
[2023-05-28 19:26] VITALS: BP 171/86; PULSE 92; RESP 18; TEMP 36.4; O2SAT 96
[2023-05-28 20:00] LABS: Glucose, Whole Blood 110 mg/dL (60-115)
[2023-05-28 23:23] VITALS: RESP 18
[2023-05-28 23:48] VITALS: BP 146/94; PULSE 85; RESP 20; TEMP 36.5; O2SAT 96
[2023-05-29 03:44] VITALS: RESP 20
[2023-05-29] MEDS: vancomycin HCL 1,500 MG in 0.9 % Sodium Chloride 500 ML 333.33 MG IV (04:31)
[2023-05-29 06:36] LABS: Estimated Glomerular Filt Rate > 60
[2023-05-29 07:25] VITALS: BP 158/93; PULSE 81; RESP 18; TEMP 36.6; O2SAT 97
[2023-05-29 07:33] LABS: Glucose, Whole Blood 102 mg/dL (60-115)
[2023-05-29] MEDS: lisinopriL 20 MG TABLET PO (09:12)
[2023-05-29] MEDS: Triamcinolone Acet 0.1 % Oint 15 GM TUBE 1 APPL TOPICAL (09:12)
[2023-05-29] MEDS: 0.9 % Sodium Chloride Flush 3 ML SYRINGE IVFLUSH (09:13)
[2023-05-29] MEDS: Enoxaparin Sodium 40 MG/0.4 ML SYRINGE SUBCUT (09:14)
--- NOTE | 2023-05-29 09:31 | PM.DS ---
DS: Providers Provider Date of Service: 05/29/23 Date of admission: 05/26/23 23:29 Date of discharge: 05/29/23 Primary care physician: Shaye Soria MD DS: Diagnosis Discharge Diagnosis (1) Cellulitis of leg, right: Status: Acute (2) Sepsis: Status: Acute (3) Morbid (severe) obesity due to excess calories: Status: Acute DS: Summary Hospital Course Hospital Course: from admission H+P by hospitalist Marty Fernandez MD, 05/26/23: This is a 43-year-old male with pertinent history of essential hypertension, [id number] diabetes mellitus, mood disorder, mixed hyperlipidemia who presents to the emergency department for evaluation of right lower extremity redness and swelling. Patient states he 1st noticed it 1 week prior to presentation. It has been progressive and associated with purulent drainage. Does have a history of cellulitis. No fever or chills. Patient denies chest discomfort, palpitations, shortness of breath, abdominal pain, changes in urinary or bowel habits. Did not try any oral antibiotics for leg infection In the emergency department, patient was found to be septic 43yo M with HTN, DM2 who was admitted to the medical-surgical floor for sepsis due to RLE cellulitis. He was treated with IV vancomycin with clinical improvement. No bacteremia. He was discharged on PO doxycycline and will also apply topical steroid. He needs Primary Care follow-up in 1 week. Time Spent with Patient Time attestation: Total time managing care of this patient today __35__ minutes. Discharge coordination time: Greater than 30 minutes Quality: Safe Use of Opioids Does Pt have an Active Cancer Diagnosis on the Problem List?: No Quality: Stroke Does the patient have a stroke diagnosis?: No Physical Exam Vital Signs: Vital Signs: Last Vital Signs Temp 97.9 F 05/29/23 07:25 Pulse 81 05/29/23 07:25 Resp 18 05/29/23 07:25 BP 158/93 H 05/29/23 07:25 Pulse Ox 97 05/29/23 07:25 O2 Del Method Room Air 05/29/23 07:25 BMI result Body Mass Index 44.6 Gen: in no acute distress HEENT: sclera anicteric, moist mucus membranes Neck: supple Lungs: clear to auscultation bilaterally Heart: regular rate and rhythm, no murmurs Abd: soft, non-tender, non-distended, obese Ext: no edema Skin: residual erythema of right calf and lateral jeff; no fluctuance Neuro: alert and oriented x3, no focal findings Psych: appropriate affect DS: Data Data Completed and Pending Completed studies during hospitalization [Text1]: Laboratory Results WBC 13.2 X10*3/uL (4.8-10.8) H 05/27/23 04:44 RBC 4.67 X10*6/uL (4.60-5.80) 05/27/23 04:44 Hgb 13.8 g/dl (14.0-18.0) L 05/27/23 04:44 Hct 42.4 % (42.0-52.0) 05/27/23 04:44 MCV 90.8 fL (80.0-98.0) 05/27/23 04:44 MCH 29.6 pg (27.0-33.0) 05/27/23 04:44 MCHC 32.5 g/dl (31.0-36.0) 05/27/23 04:44 RDW 14.1 % (11.0-16.0) 05/27/23 04:44 Plt Count 277 X10*3/uL (160-400) 05/27/23 04:44 MPV 11.9 fL (9.4-12.4) 05/27/23 04:44 Immature Gran % (Auto) 0.4 % (0.0-0.4) 05/26/23 18:39 Neut % (Auto) 64.1 % (45-73) 05/26/23 18:39 Lymph % (Auto) 20.4 % (20-40) 05/26/23 18:39 [place] % (Auto) 10.9 % (2-11) 05/26/23 18:39 Eos % (Auto) 3.8 % (0-4) 05/26/23 18:39 Baso % (Auto) 0.4 % (0-2) 05/26/23 18:39 Lymph # (Auto) 2.9 X10*3/uL (1.2-4.9) 05/26/23 18:39 [place] # (Auto) 1.5 X10*3/uL (0.1-1.2) H 05/26/23 18:39 Eos # (Auto) 0.5 X10*3/uL (0.0-0.4) H 05/26/23 18:39 Baso # (Auto) 0.1 X10*3/uL (0.0-0.2) 05/26/23 18:39 Abs Immat Gran (auto) 0.06 X10*3/uL (0.00-0.03) H 05/26/23 18:39 Absolute Neuts (auto) 9.0 x10*3/uL (2.0-8.3) H 05/26/23 18:39 Absolute Nucleated RBC 0.000 X10*3/uL (0.0-0.012) 05/27/23 04:44 Nucleated RBC % (auto) 0.0 /100WBC (0.0-0.2) 05/27/23 04:44 Smear Tech's Comments VERIFIED 05/26/23 18:39 ESR 74 MM/HR (0-15) H 05/26/23 20:02 Hold Purple Top SEE NOTE 05/29/23 06:11 Sodium 139 mmol/L (135-145) 05/27/23 04:44 Potassium 3.6 mmol/L (3.3-5.1) 05/27/23 04:44 Chloride 105 mmol/L (96-108) 05/27/23 04:44 Carbon Dioxide 24 mmol/L (22-29) 05/27/23 04:44 Anion Gap 14 (12-20) 05/27/23 04:44 BUN 11 mg/dL (9-16) 05/27/23 04:44 Creatinine 0.74 mg/dL (0.5-1.4) 05/29/23 06:11 Estim Creat Clear Calc 184.0 05/29/23 06:11 Estimated GFR > 60 05/29/23 06:11 POC Glucose 102 mg/dL (60-115) 05/29/23 07:28 Random Glucose 110 mg/dL (60-115) 05/27/23 04:44 Lactic Acid 1.0 mmol/L (0.5-2.0) 05/26/23 23:26 Calcium 8.9 mg/dL (8.4-10.2) D 05/27/23 04:44 Total Bilirubin 0.4 mg/dL (0.0-1.0) 05/26/23 18:39 Direct Bilirubin 0.2 mg/dL (0.0-0.5) 05/26/23 18:39 AST 17 U/L (5-37) 05/26/23 18:39 ALT 20 U/L (0-40) 05/26/23 18:39 Alkaline Phosphatase 75 U/L (39-117) 05/26/23 18:39 C-Reactive Protein 14.98 mg/dL (< or = 0.50) H 05/26/23 18:39 B-Natriuretic Peptide < 10 pg/mL (<100) 05/26/23 20:02 Total Protein 8.4 g/dL (6.5-8.0) H 05/26/23 18:39 Albumin 3.9 g/dL (3.5-5.0) 05/26/23 18:39 Hold Yellow Top See Note 05/29/23 06:11 Random Vancomycin 9.6 mcg/mL (15-20) L 05/28/23 17:09 Impressions Venous Duplex 05/26/23 19:05 IMPRESSION: No DVT demonstrated in the right lower extremity. Tibia/Fibula X-Ray 05/26/23 23:26 IMPRESSION: * No acute fracture or dislocation. * Diffuse soft tissue swelling. Discharge Plan Discharge Anticipated Discharge Date/Time: 05/29/23 09:29 Patient Disposition: Home, Self-Care Discharge Diagnosis: RLE cellulitis Referrals: Shaye Soria MD [Primary Care Provider] - 1 Week Discharge Medications: New doxycycline monohydrate 100 mg tablet 100 mg PO BID Qty: 14 0RF triamcinolone acetonide 0.1 % Ointment 1 appl topical BID Qty: 60 0RF Continued metformin 500 mg tablet 1 tab PO DAILY lisinopril 20 mg tablet 1 tab PO DAILY Discharge Orders: Discharge Order (Routine); Ordered 05/29/23 Ordered By: Alexander Grant Diet: Diabetic diet Activity on Discharge: As tolerated Stand Alone Forms: Patient Portal Discharge page Care Plan Goals: recovery from infection Health Concerns: RLE cellulitis Plan of Treatment: doxycycline 100 mg twice daily for 7 days triamcinolone 0.1% twice daily to cellulitis area Please follow up with your primary care doctor within 1 week. Return to the hospital if you experience recurrent or worsening symptoms. Assessment: See Discharge Summary.
[2023-05-29 09:41] LABS: Vancomycin Random 18.6 mcg/mL (15-20)
--- NOTE | 2023-05-29 10:03 | MHC.CM.PN ---
PT TO DC HOME TODAY WITH NO NEW SERVICES PT WILL SELF ARRANGE TRANSPORT
--- NOTE | 2023-06-01 11:28 | P.CDIM_ITS ---
PROVIDER RESPONSE TEXT: To clarify, the appropriate diagnosis supported by the clinical indicators: Yes, RLE Cellulitis is related to / associated with / due to DM2 QUERY TEXT: PHYSICIAN'S DOCUMENTATION REQUEST Date of Query: 05/27/2023 11:53 AM EDT Patient Name: Adam Lorenz Admit Date: 05/27/2023 Dear Alexander Grant, A review of the medical record indicates additional documentation may be needed. Please review below and update the documentation accordingly. Documentation includes the conditions of RLE Cellulitis and DM2. Please clarify the relationship between these conditions: Yes, RLE Cellulitis is related to / associated with / due to DM2 No, RLE Cellulitis is not related to / associated with / due to DM2 Other (explain)Clinically unable to determine (explain)Thank you, Leia Benton RN Use of terms such as suspected, likely, concern for, or probable (associated with a specific diagnosi s that is being evaluated, monitored, or treated as if it exists) are acceptable and can be coded in the inpatient se tting, when documented at the time of discharge. Please use your independent medical judgment in providing your response. THIS QUERY IS PART OF THE PERMANENT MEDICAL RECORD
== END 2023-05-29 09:54 | disposition home or self-care (01) | DRG 872 ==
LOC: HO.ED 23:28 → HO.EDOVER 23:33 → HO.S3 05-27 09:15
PROVIDERS: Physician Assistant Medical; Admitting Provider Student in an Organized Health Care Education/Training Program; Emergency Provider Student in an Organized Health Care Education/Training Program; PCP Internal Medicine; Visit Provider Family Medicine
DX: A41.9 Sepsis, unspecified organism (principal); L03.115 Cellulitis of right lower limb; Z68.41 Body mass index [BMI] 40.0-44.9, adult; E11.628 Type 2 diabetes mellitus with other skin complications; E78.2 Mixed hyperlipidemia; E66.01 Morbid (severe) obesity due to excess calories; G47.33 Obstructive sleep apnea (adult) (pediatric); Z87.820 Personal history of traumatic brain injury; Z79.84 Long term (current) use of oral hypoglycemic drugs; Z79.899 Other long term (current) drug therapy
CPT/HCPCS: 36415; 73590; 80048; 80076; 80202; 82565; 82947; 83605; 83880; 85025; 85027; 85652; 86140; 87040; 93971; 94660; 99285; J1650; J2543; J3370; J3371

== ENCOUNTER → 2023-05-26 23:29 | Outpatient (BNV) | payer MEDICARE, MEDICAID, SELFPAY | PROVIDERS: Admitting Provider Student in an Organized Health Care Education/Training Program; Emergency Provider Student in an Organized Health Care Education/Training Program; PCP Internal Medicine; Visit Provider Student in an Organized Health Care Education/Training Program | DX: A41.9 Sepsis, unspecified organism (principal); E66.01 Morbid (severe) obesity due to excess calories; Z68.41 Body mass index [BMI] 40.0-44.9, adult; L03.115 Cellulitis of right lower limb | CPT/HCPCS: 99222; 99232; 99239 ==

== ENCOUNTER 2023-07-20 15:25 | Emergency (ER) | payer MEDICARE, OTHER, SELFPAY ==
[2023-07-20 15:37] VITALS: BP 163/94; PULSE 96; O2SAT 98
[2023-07-20 15:41] VITALS: BP 144/89; PULSE 85; RESP 18; TEMP 37; O2SAT 99; BMI 50.8
--- NOTE | 2023-07-20 16:15 | ECG_ITS ---
Test Reason : AMS Blood Pressure : / mmHG Vent. Rate : 078 BPM Atrial Rate : 078 BPM P-R Int : 168 ms QRS Dur : 096 ms QT Int : 356 ms P-R-T Axes : 044 010 032 degrees QTc Int : 405 ms Normal sinus rhythm Normal ECG When compared with ECG of 09-MAR-2022 13:57, No significant change was found Referred By: Jeanne Dubose Electronically Signed By:JACK RIDDLE
--- NOTE | 2023-07-20 16:57 | ED_ITS ---
HPI - General Adult General Chief complaint: Altered Mental Status Stated complaint: seizure? Time Seen by Provider: 07/20/23 16:01 Source: patient Mode of arrival: EMS History of Present Illness HPI narrative: 43-year-old male with history of TBI, hypertension, diabetes who presents via EMS for family complaints of intermittent unresponsiveness. Patient states that he was staring off but that this is not new for him. He denies any fever, chills, nausea, vomiting, abdominal pain and denies any shortness of breath or chest pain. Patient states that he is been eating/drinking/pooping and peeing without difficulty. Related Data Home Medications Medication Instructions Recorded Confirmed lisinopril 20 mg tablet 1 tab PO DAILY 03/04/22 05/27/23 metformin 500 mg tablet 1 tab PO DAILY 03/04/22 05/27/23 Previous Rx's Medication Instructions Recorded doxycycline monohydrate 100 mg 100 mg PO BID #14 tabs 05/29/23 tablet triamcinolone acetonide 0.1 % 1 appl topical BID #60 grams 05/29/23 topical ointment Allergies Allergy/AdvReac Type Severity Reaction Status Date / Time No Known Allergies Allergy Verified 02/06/22 10:44 Review of Systems 2 Review of Systems: Pertinent positives and negatives as stated in HPI PMFSH Past Medical History Source: nursing notes reviewed Medical History TBI (traumatic brain injury) Severe recurrent major depression Surgical History H/O left knee surgery H/O splenectomy Family History Family History Maternal Grandfather Cancer of unknown origin Father Prostate cancer Social History Social History Household Members: Family Household Members Other:: Sister Housing: Apartment Do you presently have visiting nurse or other home services: No Alcohol intake: former Patient Tobacco Use Status: Never used Tobacco e-Cigarette/Vaping Use: Never Used Second Hand Smoke Exposure: No Substance Use Type: Caffiene Advance Directives: Yes Advance Directives Information Provided: No Advance Directives on File: No service: No Sexual orientation: Straight/Heterosexual Physical Exam ED Vital Signs: Vital Signs - 24 hr 07/20/23 15:41 07/20/23 17:51 07/20/23 17:51 Temperature 98.6 F Pulse Rate 85 76 81 Respiratory Rate 18 Blood Pressure 144/89 H 157/86 H 154/92 H Pulse Oximetry 99 Oxygen Delivery Method Room Air 07/20/23 17:54 Temperature Pulse Rate 82 Respiratory Rate Blood Pressure 160/94 H Pulse Oximetry Oxygen Delivery Method BMI result Body Mass Index 50.8 VITAL SIGNS: Reviewed. GENERAL: Well developed, well nourished, in no acute distress. 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 No adventitious sounds or accessory muscle use. SpO2<99> CARDIOVASCULAR: Regular rate and rhythm without noted murmurs, no JVD or lower extremity edema. ABDOMEN: Soft, non-tender, non-distended with bowel sounds, patient has nonpainful ventral hernia that is reducible with no overlying skin changes. MUSCULOSKELETAL: No tenderness, deformities, or effusions noted on gross inspection. EXTREMITIES: No cyanosis, clubbing or edema. SKIN: Inspection of the skin reveals no rashes NEUROLOGIC: Alert and oriented x 3. Strength and sensation to light touch were grossly intact x 4. Medical Decision Making Medical Decision Making MDM Narrative: 43-year-old male with history and clinical presentation, DDX: Will evaluate for presence of infection, anemia, electrolyte derangements, cardiac arrhythmia. On my initial exam high see no evidence of any of these in the feel that this may be baseline for this patient as he has described it, although collateral information will be obtained from his family. EKG is without acute findings. I reviewed all investigations and hematologic indices show a slight bump in leukocytes but no left shift, patient is afebrile and otherwise there is no anemia or thrombocytopenia. Chemistry indices are grossly within normal limits without demonstrated JOSÉ MANUEL her electrolytes/liver enzymes derangements. Urinalysis is negative for UTI or hematuria. My interpretation is that patient has had a presentation of his typical phos is in discussion with family members, there is no evidence of underlying etiology for the presentation, however he was encouraged to follow-up with his primary care provider in the next 1-2 days for re-evaluation and further outpatient management. Differential Diagnosis Differential Diagnoses: The differential diagnosis associated with the presentation includes Please see the discussion above Admission/Observation Consideration of admission/observation: Escalation of care including admission/observation considered Please see the discussion above Lab Data MDM Lab Attestation statement: I reviewed the patient's lab results. Please see the discussion above 07/20/23 18:12 07/20/23 19:00 Labs: Lab Results 07/20/23 07/20/23 07/20/23 Range/Units 18:12 18:13 19:00 WBC 11.2 H (4.8-10.8) X10*3/uL RBC 5.52 (4.60-5.80) X10*6/uL Hgb 15.8 (14.0-18.0) g/dl Hct 49.8 (42.0-52.0) % MCV 90.2 (80.0-98.0) fL MCH 28.6 (27.0-33.0) pg MCHC 31.7 (31.0-36.0) g/dl RDW 14.6 (11.0-16.0) % Plt Count 237 (160-400) X10*3/uL MPV Not Reportable Immature Gran % (Auto) 0.2 (0.0-0.4) % Neut % (Auto) 51.0 (45-73) % Lymph % (Auto) 34.0 (20-40) % [place] % (Auto) 11.0 (2-11) % Eos % (Auto) 3.2 (0-4) % Baso % (Auto) 0.6 (0-2) % Lymph # (Auto) 3.8 (1.2-4.9) X10*3/uL [place] # (Auto) 1.2 (0.1-1.2) X10*3/uL Eos # (Auto) 0.4 (0.0-0.4) X10*3/uL Baso # (Auto) 0.1 (0.0-0.2) X10*3/uL Abs Immat Gran (auto) 0.02 (0.00-0.03) X10*3/uL Absolute Neuts (auto) 5.7 (2.0-8.3) x10*3/uL Absolute Nucleated RBC 0.000 (0.0-0.012) X10*3/uL Nucleated RBC % (auto) 0.0 (0.0-0.2) /100WBC Smear Tech's Comments VERIFIED Sodium 142 (135-145) mmol/L Potassium 4.3 (3.3-5.1) mmol/L Chloride 108 (96-108) mmol/L Carbon Dioxide 23 (22-29) mmol/L Anion Gap 15 (12-20) BUN 9 (9-16) mg/dL Creatinine 0.75 (0.5-1.4) mg/dL Estim Creat Clear Calc 195.7 Estimated GFR > 60 Random Glucose 77 (60-115) mg/dL Calcium 9.0 (8.4-10.2) mg/dL Total Bilirubin 0.3 (0.0-1.0) mg/dL AST 21 (5-37) U/L ALT 26 (0-40) U/L Alkaline Phosphatase 83 (39-117) U/L Total Protein 7.9 (6.5-8.0) g/dL Albumin 3.9 (3.5-5.0) g/dL Urine Color Yellow Urine Appearance Turbid Urine pH 8.0 (5.0-9.0) Ur Specific [place] 1.015 (1.005-1.025) Urine Protein Negative (Neg-Trace) mg/dL Urine Glucose (UA) Negative (Negative) mg/dL Urine Ketones Negative (Negative) mg/dL Urine Blood Negative (Negative) Urine Nitrite Negative (Negative) Ur Leukocyte Esterase Negative (Negative) Independent Interpretation I performed an independent interpretation of an: EKG Interpretation: Normal sinus rhythm, HR-78, no STEMI, VT/QRS/QTC is within normal limits. External Record Review External record reviewed: Outpatient record, Prior outpatient labs and Prior outpatient radiology Chronic Conditions Patient?s care impacted by: Diabetes and Hypertension Critical Care Time Critical Care Time Critical Care Time: Yes Total Critical Care Time: 30 Attestation: I personally attest to this time spent taking care of the patient. Discharge Plan Discharge Clinical Impression: TBI (traumatic brain injury), Staring episodes Patient Disposition: Home, Self-Care Instructions: Cognitive Disorders after Traumatic Brain Injury (ED) Additional Instructions: 1. Resume all home medications as prescribed. 2. You have been evaluated today and there is no evidence of infection, or electrolyte abnormalities. 3. Please follow-up with your primary care provider in the next 1-2 days for re- evaluation further outpatient management. Return to the ER for any worsening symptoms. Prescriptions: No Action metformin 500 mg tablet 1 tab PO DAILY lisinopril 20 mg tablet 1 tab PO DAILY doxycycline monohydrate 100 mg tablet 100 mg PO BID Qty: 14 0RF triamcinolone acetonide 0.1 % Ointment 1 appl topical BID Qty: 60 0RF Referrals: Shaye Soria MD [Primary Care Provider] -
[2023-07-20 17:51] VITALS: BP 154/92; BP 157/86; PULSE 76; PULSE 81
[2023-07-20 17:54] VITALS: BP 160/94; PULSE 82
[2023-07-20 18:25] LABS: Appearance Urine Turbid; Color Urine Yellow; Glucose Urine UA Negative (Negative); Leukocyte Esterase Urine Negative (Negative); Nitrite Urine Negative (Negative); Specific Gravity - Urine 1.015 (1.005-1.025); Urine Blood Negative (Negative); Urine Ketones Negative (Negative); Urine Protein Negative (Neg-Trace)
[2023-07-20 18:51] LABS: Basophils Absolute Auto 0.1 X10*3/uL (0.0-0.2); Basophils Percent Auto 0.6 % (0-2); Eosinophils Absolute Auto 0.4 X10*3/uL (0.0-0.4); Eosinophils Percent Auto 3.2 % (0-4); Hematocrit 49.8 % (42.0-52.0); Hemoglobin 15.8 g/dl (14.0-18.0); Imm Gran Abs Auto 0.02 X10*3/uL (0.00-0.03); Imm Gran Pct Auto 0.2 % (0.0-0.4); Lymphocytes Absolute Auto 3.8 X10*3/uL (1.2-4.9); MANUAL DIFF FLAG SCAN; Mean Corpuscular HGB Conc 31.7 g/dl (31.0-36.0); Mean Corpuscular Hemoglobin 28.6 pg (27.0-33.0); Mean Corpuscular Volume 90.2 fL (80.0-98.0); Monocytes Absolute Auto 1.2 X10*3/uL (0.1-1.2); Neutrophils Absolute Auto 5.7 x10*3/uL (2.0-8.3); PLT CLUMP 1; Red Blood Count 5.52 X10*6/uL (4.60-5.80); Red Cell Distribution Width 14.6 % (11.0-16.0); SCAN SMEAR FLAG 1
[2023-07-20 19:05] LABS: Platelet Count 237 X10*3/uL (160-400); SLIDE REVIEW VERIFIED; White Blood Count 11.2 X10*3/uL (4.8-10.8)
[2023-07-20 19:24] LABS: Alanine Aminotransferase 26 U/L (0-40); Albumin Level 3.9 g/dL (3.5-5.0); Alkaline Phosphatase 83 U/L (39-117); Anion Gap 15 (12-20); Aspartate Amino Transferase 21 U/L (5-37); Bilirubin Total 0.3 mg/dL (0.0-1.0); Blood Urea Nitrogen 9 mg/dL (9-16); Carbon Dioxide 23 mmol/L (22-29); Chloride 108 mmol/L (96-108); Creatinine Clr Calc Pharmacy 195.7; Estimated Glomerular Filt Rate > 60; Glucose Random 77 mg/dL (60-115); Potassium 4.3 mmol/L (3.3-5.1); Sodium 142 mmol/L (135-145); Total Protein 7.9 g/dL (6.5-8.0)
== END 2023-07-20 20:15 | disposition home or self-care (01) ==
PROVIDERS: Emergency Provider Student in an Organized Health Care Education/Training Program; PCP Internal Medicine
DX: R41.82 Altered mental status, unspecified (principal); Z87.820 Personal history of traumatic brain injury; Z79.899 Other long term (current) drug therapy
CPT/HCPCS: 36415; 80053; 81003; 85025; 93005; 99283

== ENCOUNTER → 2023-07-20 16:15 | Outpatient (BNV) | payer MEDICARE, SELFPAY | PROVIDERS: Emergency Provider Student in an Organized Health Care Education/Training Program; PCP Internal Medicine; Visit Provider Internal Medicine | DX: R41.82 Altered mental status, unspecified (principal) | CPT/HCPCS: 93010 ==

== ENCOUNTER 2023-07-29 23:35 | Inpatient (IN) | payer MEDICARE, OTHER, SELFPAY ==
--- NOTE | 2023-07-29 | ECG_ITS ---
Test Reason : SEPSIS Blood Pressure : / mmHG Vent. Rate : 088 BPM Atrial Rate : 088 BPM P-R Int : 162 ms QRS Dur : 100 ms QT Int : 372 ms P-R-T Axes : 053 010 035 degrees QTc Int : 450 ms Normal sinus rhythm Normal ECG When compared with ECG of 20-JUL-2023 16:49, No significant change was found Referred By: Generic ED Physician Electronically Signed By:Cash Dahl
[2023-07-29 23:43] VITALS: BP 164/80; PULSE 87; RESP 20; TEMP 36.6; O2SAT 98
[2023-07-29 23:49] VITALS: BP 158/78; PULSE 90; O2SAT 99; BMI 41.8
[2023-07-30 00:16] LABS: Basophils Absolute Auto 0.1 X10*3/uL (0.0-0.2); Basophils Percent Auto 0.6 % (0-2); Eosinophils Absolute Auto 0.4 X10*3/uL (0.0-0.4); Eosinophils Percent Auto 3.6 % (0-4); Hematocrit 45.8 % (42.0-52.0); Hemoglobin 14.5 g/dl (14.0-18.0); Imm Gran Abs Auto 0.02 X10*3/uL (0.00-0.03); Imm Gran Pct Auto 0.2 % (0.0-0.4); Lymphocytes Absolute Auto 3.7 X10*3/uL (1.2-4.9); Lymphocytes Percent Auto 31.3 % (20-40); MANUAL DIFF FLAG NO; Mean Corpuscular HGB Conc 31.7 g/dl (31.0-36.0); Mean Corpuscular Hemoglobin 28.5 pg (27.0-33.0); Mean Corpuscular Volume 90.2 fL (80.0-98.0); Mean Platelet Volume 10.7 fL (9.4-12.4); Monocytes Absolute Auto 1.3 X10*3/uL (0.1-1.2); Monocytes Percent Auto 10.8 % (2-11); Neutrophils Absolute Auto 6.3 x10*3/uL (2.0-8.3); Neutrophils Percent Auto 53.5 % (45-73); Platelet Count 336 X10*3/uL (160-400); Red Blood Count 5.08 X10*6/uL (4.60-5.80); Red Cell Distribution Width 14.3 % (11.0-16.0); White Blood Count 11.8 X10*3/uL (4.8-10.8)
--- NOTE | 2023-07-30 00:23 | ED.EXTPRO ---
HPI - Extremity Problem General Chief complaint: Extremity Injury, Lower Stated complaint: celluitus Time Seen by Provider: 07/30/23 00:19 Source: patient Mode of arrival: ambulatory Limitations: no limitations History of Present Illness HPI Narrative: Patient diabetic, hypertension status post splenectomy with recurrent cellulitis of lower extremity been having redness of the right lower extremity for last 1 month got worse in last 2 weeks was seen here and started on doxycycline on 07/20 comes back here as wound is weeping now and redness has increased no fever no chills Related Data Home Medications Medication Instructions Recorded Confirmed lisinopril 20 mg tablet 1 tab PO DAILY 03/04/22 05/27/23 metformin 500 mg tablet 1 tab PO DAILY 03/04/22 05/27/23 Previous Rx's Medication Instructions Recorded doxycycline monohydrate 100 mg 100 mg PO BID #14 tabs 05/29/23 tablet triamcinolone acetonide 0.1 % 1 appl topical BID #60 grams 05/29/23 topical ointment Allergies Allergy/AdvReac Type Severity Reaction Status Date / Time No Known Allergies Allergy Verified 02/06/22 10:44 Review of Systems Review of Systems: Yes all other systems are reviewed and are negative PMFSH Past Medical History Medical History TBI (traumatic brain injury) Severe recurrent major depression Surgical History H/O left knee surgery H/O splenectomy Family History Family History Maternal Grandfather Cancer of unknown origin Father Prostate cancer Social History Social History Household Members: Family Household Members Other:: Sister Housing: Apartment Do you presently have visiting nurse or other home services: No Alcohol intake: former Patient Tobacco Use Status: Never used Tobacco Smoked in Last 30 Days: No e-Cigarette/Vaping Use: Never Used Second Hand Smoke Exposure: No Use of substances other than those prescribed or required for medical reasons: No Substance Use Type: Caffiene Advance Directives: No Advance Directives Information Provided: Yes service: No Sexual orientation: Straight/Heterosexual Physical Exam Vital Signs: Vital Signs: Last Vital Signs Temp 97.8 F 07/29/23 23:43 Pulse 87 07/29/23 23:43 Resp 20 07/29/23 23:43 BP 164/80 H 07/29/23 23:43 Pulse Ox 98 07/29/23 23:43 O2 Del Method Room Air 07/29/23 23:43 BMI result Body Mass Index 41.8 Appearance: Alert. Oriented X3. No acute distress. Eyes: PERRLA, No Nystagmus ENT: Pharynx normal. Oral Mucosa moist Neck: Normal inspection. Neck supple. CVS: Normal heart rate and rhythm. Pulses normal. Respiratory: No respiratory distress. Equal air entry bilateral, no wheezing/rales/rhonchi Abdomen: Soft and nontender. Bowel sounds are present, no mass palpable, no CVA tenderness Skin: Skin warm and dry. Cellulitic right leg Normal skin turgor. Extremities: No lower extremity edema. No calf tenderness Neuro: Oriented X 3. No motor deficit. No sensory deficit.No cerebellar signs , cranial nerves II-XII intact Medications Administered Generic Name Dose Route Start Last Admin Trade Name Freq PRN Reason Stop Dose Admin Vancomycin HCl 2,000 mg in 500 mls @ 250 mls/hr 07/30/23 00:30 07/30/23 00:53 Vancomycin/Ns IV 07/30/23 02:29 250 mls/hr ONCE ONE Administration Medical Decision Making Medical Decision Making [facility] Narrative: Patient diabetic status post splenectomy with recurrent cellulitis failed outpatient antibiotic treatment will admit patient for cellulitis for IV antibiotics Differential Diagnosis Differential Diagnoses: The differential diagnosis associated with the presentation includes Cellulitis/deeper infection/MRSA infection Admission/Observation Consideration of admission/observation: Escalation of care including admission/observation considered Consult Healthcare Provider Management of the patient was discussed with: Hospitalist Lab Data [facility] Lab Attestation statement: I reviewed the patient's lab results. 07/30/23 00:06 07/30/23 00:06 Labs: Lab Results 07/30/23 Range/Units 00:06 WBC 11.8 H (4.8-10.8) X10*3/uL RBC 5.08 (4.60-5.80) X10*6/uL Hgb 14.5 (14.0-18.0) g/dl Hct 45.8 (42.0-52.0) % MCV 90.2 (80.0-98.0) fL MCH 28.5 (27.0-33.0) pg MCHC 31.7 (31.0-36.0) g/dl RDW 14.3 (11.0-16.0) % Plt Count 336 D (160-400) X10*3/uL MPV 10.7 (9.4-12.4) fL Immature Gran % (Auto) 0.2 (0.0-0.4) % Neut % (Auto) 53.5 (45-73) % Lymph % (Auto) 31.3 (20-40) % [place] % (Auto) 10.8 (2-11) % Eos % (Auto) 3.6 (0-4) % Baso % (Auto) 0.6 (0-2) % Lymph # (Auto) 3.7 (1.2-4.9) X10*3/uL [place] # (Auto) 1.3 H (0.1-1.2) X10*3/uL Eos # (Auto) 0.4 (0.0-0.4) X10*3/uL Baso # (Auto) 0.1 (0.0-0.2) X10*3/uL Abs Immat Gran (auto) 0.02 (0.00-0.03) X10*3/uL Absolute Neuts (auto) 6.3 (2.0-8.3) x10*3/uL Absolute Nucleated RBC 0.000 (0.0-0.012) X10*3/uL Nucleated RBC % (auto) 0.0 (0.0-0.2) /100WBC Sodium 140 (135-145) mmol/L Potassium 4.2 (3.3-5.1) mmol/L Chloride 105 (96-108) mmol/L Carbon Dioxide 27 (22-29) mmol/L Anion Gap 12 (12-20) BUN 14 (9-16) mg/dL Creatinine 0.87 (0.5-1.4) mg/dL Estim Creat Clear Calc 151.0 Estimated GFR > 60 Fasting Glucose 113 H (60-99) mg/dL Lactic Acid 1.8 (0.5-2.0) mmol/L Calcium 9.2 (8.4-10.2) mg/dL Total Bilirubin 0.2 (0.0-1.0) mg/dL AST 16 (5-37) U/L ALT 23 (0-40) U/L Alkaline Phosphatase 83 (39-117) U/L Troponin I High Sens < 2.7 (<3.5-35.0) ng/L Total Protein 8.2 H (6.5-8.0) g/dL Albumin 3.8 (3.5-5.0) g/dL Discharge Plan Discharge Clinical Impression: Cellulitis of leg, right Patient Disposition: Admitted As Inpatient
[2023-07-30 00:27] LABS: Lactic Acid 1.8 mmol/L (0.5-2.0)
[2023-07-30 00:32] LABS: Alanine Aminotransferase 23 U/L (0-40); Albumin Level 3.8 g/dL (3.5-5.0); Alkaline Phosphatase 83 U/L (39-117); Anion Gap 12 (12-20); Aspartate Amino Transferase 16 U/L (5-37); Bilirubin Total 0.2 mg/dL (0.0-1.0); Blood Urea Nitrogen 14 mg/dL (9-16); Calcium 9.2 mg/dL (8.4-10.2); Carbon Dioxide 27 mmol/L (22-29); Chloride 105 mmol/L (96-108); Estimated Glomerular Filt Rate > 60; Glucose Fasting 113 mg/dL (60-99); Potassium 4.2 mmol/L (3.3-5.1); Sodium 140 mmol/L (135-145); Total Protein 8.2 g/dL (6.5-8.0)
[2023-07-30 00:41] LABS: Troponin-I High Sensitivity < 2.7 ng/L (<3.5-35.0)
[2023-07-30] MEDS: vancomycin/NS 2,000 MG/500 ML PLAST..BAG 250 MG IV (00:53)
--- NOTE | 2023-07-30 01:05 | PC.NURSE ---
Warmth, redness and swelling present on right lower leg. Small amount of serosanguineous drainage present. PT reports pain now 5/10. 20g IVC placed in the LAC. Vanco running (see MAR). PT laying in bed, in no apparent distress, resp rations even and unlabored. Plan of care ongoing.
--- NOTE | 2023-07-30 01:59 | PC.NURSE ---
Medication rec completed, pt verbalized med list to this RN. PT states Amlodipine 5mg is prescribed but I don't take it because it makes me tired .
--- NOTE | 2023-07-30 03:10 | PC.NURSE ---
pt ambulated to bathroom with slow steady gait.
[2023-07-30] MEDS: Enoxaparin Sodium 40 MG/0.4 ML SYRINGE SUBCUT ×2 (04:12→21:50)
[2023-07-30 04:14] VITALS: BP 141/84; PULSE 86; RESP 18; O2SAT 97
--- NOTE | 2023-07-30 05:57 | P.HPHOSP_ITS ---
History of Present Illness Date of Service: 07/30/23 Attending physician on admission: Tyler Bernal Chief Complaint: Pain & swelling of the right leg x1 month but worse over the last 2 weeks 43 year old morbidly obese white male with history of type 2 diabetes mellitus, hypertension and lymphedema of the right leg presents to the emergency complaining of increasing pain and swelling of the right leg and foot that has been present for the last 1 month but reportedly worse over the last few days and now also with open wounds draining purulent material. He denied any preceding trauma or associated fevers or chills. He was reportedly started on Doxycycline on 07/20 (per ED records) but patient has no recollection of taking it at home. Work up done in the emergency room revealed a mild leucocytosis of 11.8 k/mm3. he was started on IV Vancomycin and admission requested. Review of Systems 2 Review of Systems: Yes all other systems are reviewed and are negative [facility] Medical History TBI (traumatic brain injury) Severe recurrent major depression Cognitive capacity: Appears to have mild cognitive deficits. Functional capacity: independent ambulation Family History Maternal Grandfather Cancer of unknown origin Father Prostate cancer Surgical History H/O left knee surgery H/O splenectomy Social History Household Members: Family Household Members Other:: Sister Housing: Apartment Do you presently have visiting nurse or other home services: No Alcohol intake: former Patient Tobacco Use Status: Never used Tobacco Smoked in Last 30 Days: No e-Cigarette/Vaping Use: Never Used Second Hand Smoke Exposure: No Use of substances other than those prescribed or required for medical reasons: No Substance Use Type: Caffiene Advance Directives: No Advance Directives Information Provided: Yes Nutrition Risks: No Nutritional Risk service: No Sexual orientation: Straight/Heterosexual Meds Allergies Allergy/AdvReac Type Severity Reaction Status Date / Time No Known Allergies Allergy Verified 02/06/22 10:44 Home Medications Medication Instructions Recorded Confirmed Last Taken Type lisinopril 20 mg tablet 1 tab PO DAILY 03/04/22 07/30/23 07/29/23 History 20 mg metformin 500 mg tablet 1 tab PO DAILY 03/04/22 07/30/23 07/29/23 History Physical Exam 2 Vital Signs and Narrative: Vital Signs: Last Vital Signs Temp 97.8 F 07/29/23 23:43 Pulse 86 07/30/23 04:14 Resp 18 07/30/23 04:14 BP 141/84 H 07/30/23 04:14 Pulse Ox 97 07/30/23 04:14 O2 Del Method Room Air 07/30/23 04:14 BMI result Body Mass Index 41.8 General: Well nourished. Awake, alert and oriented x 4. No apparent distress Eyes: No pallor or jaundice. PERRLA, EOMI HENT: Moist oral mucus membranes. No oropharyngeal lesions. Neck: Supple. No cervical adenopathy. No JVD Cardiovascular: Regular rate and rhythm. Normal heart sounds. No murmurs, rubs or gallops. No JVD. No peripheral edema. Respiratory: Normal respiratory effort with no accessory muscle use. CTAB. Gastrointestinal: Abdomen is obese, soft, non-tender, non-distended. NABS. No hepatosplenomegaly Extremities: Right leg - swollen and with increased warmth & erythema. Also with a small open sore on anterior jeff with some purulent drainage. No calf tenderness. Good peripheral pulses Skin: Warm/Dry with erythema and open sore on right leg. Otherwise the rest of the body exam was normal. No mottling. Capillary refill is < 2 seconds Neurological: AAOx4. Fair cognition. Facial asymmetry noted (old). Gait & balance not tested. Comprehensive neuro exam not undertaken. Hematologic: No bleeding. No ecchymosis. No swollen or tender lymph nodes. Psychiatric: Cooperative. Appropriate mood and affect . Results Labs 07/30/23 05:47 07/30/23 05:47 Labs: Laboratory Results - last 24 hr 07/30/23 00:06 MCV 90.2 MCH 28.5 MCHC 31.7 RDW 14.3 Plt Count 336 D MPV 10.7 Immature Gran % (Auto) 0.2 Neut % (Auto) 53.5 Lymph % (Auto) 31.3 [place] % (Auto) 10.8 Eos % (Auto) 3.6 Baso % (Auto) 0.6 Lymph # (Auto) 3.7 [place] # (Auto) 1.3 H Eos # (Auto) 0.4 Baso # (Auto) 0.1 Abs Immat Gran (auto) 0.02 Absolute Neuts (auto) 6.3 Absolute Nucleated RBC 0.000 Nucleated RBC % (auto) 0.0 Anion Gap 12 Estim Creat Clear Calc 151.0 Estimated GFR > 60 Fasting Glucose 113 H Lactic Acid 1.8 Calcium 9.2 Total Bilirubin 0.2 AST 16 ALT 23 Alkaline Phosphatase 83 Total Protein 8.2 H Albumin 3.8 ECG Interpretation: NSR at 88 bpm with normal axis and normal IA intervals. No acute ischemic changes. 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 Cellulitis of the right leg - not septic - not clear if he indeed has failed outpatient therapy since he has no recollection of taking Doxycycline - admit and continue with IV antibiotics - will try contact caregivers to see what he is taking at home - if not on Doxycycline, then we can discharge him on a trial of oral antibiotics 2. Uncontrolled hypertension - increase dose of Lisinopril to 40 mg daily (currently on 20 mg daily) 3. Morbid obesity - BMI of 41.8 - encourage weight loss 4. Type 2 diabetes mellitus - continue metformin DVT: SC Lovenox CODE STATUS: Full code Admission for at least 2 midnights for management of cellulitis of the right leg Total time managing care of this patient today: 75 minutes. Quality Stroke Does the patient have a stroke diagnosis?: No VTE Prior VTE?: No VTE Risk Level:: Medical - moderate - high VTE Device Contraindication: Treatment Not Indicated VTE Drug Contraindication: N/A - Med Ordered
[2023-07-30 06:06] LABS: MANUAL DIFF FLAG NO
[2023-07-30 06:08] LABS: Basophils Absolute Auto 0.1 X10*3/uL (0.0-0.2); Basophils Percent Auto 0.7 % (0-2); Eosinophils Absolute Auto 0.5 X10*3/uL (0.0-0.4); Eosinophils Percent Auto 4.6 % (0-4); Hematocrit 42.6 % (42.0-52.0); Hemoglobin 13.7 g/dl (14.0-18.0); Imm Gran Abs Auto 0.03 X10*3/uL (0.00-0.03); Imm Gran Pct Auto 0.3 % (0.0-0.4); Lymphocytes Absolute Auto 3.3 X10*3/uL (1.2-4.9); Lymphocytes Percent Auto 29.5 % (20-40); Mean Corpuscular HGB Conc 32.2 g/dl (31.0-36.0); Mean Corpuscular Hemoglobin 29.1 pg (27.0-33.0); Mean Corpuscular Volume 90.6 fL (80.0-98.0); Mean Platelet Volume 10.9 fL (9.4-12.4); Monocytes Absolute Auto 1.2 X10*3/uL (0.1-1.2); Monocytes Percent Auto 10.4 % (2-11); Neutrophils Absolute Auto 6.1 x10*3/uL (2.0-8.3); Neutrophils Percent Auto 54.5 % (45-73); Platelet Count 324 X10*3/uL (160-400); Red Cell Distribution Width 14.6 % (11.0-16.0); White Blood Count 11.2 X10*3/uL (4.8-10.8)
--- NOTE | 2023-07-30 06:19 | PC.NURSE ---
Report done, Pt will be transported to room 443, Pt aware of plan.
[2023-07-30 06:25] LABS: Anion Gap 9 (12-20); Blood Urea Nitrogen 16 mg/dL (9-16); Calcium 8.7 mg/dL (8.4-10.2); Carbon Dioxide 25 mmol/L (22-29); Chloride 108 mmol/L (96-108); Estimated Glomerular Filt Rate > 60; Glucose Random 131 mg/dL (60-115); Sodium 138 mmol/L (135-145)
--- NOTE | 2023-07-30 06:48 | PHA.PROG ---
Admission Date/Time: July 30, 2023 03:35 Indication: skin Weight in k.078 kg Adjusted body weight in Kg: [place] body weight in Kg: Obesity Dosing Indication % IBW: Serum Creatinine - Last 168 Hours 07/30/23 07/30/23 00:06 05:47 Creatinine 0.87 0.87 Estimated CrCl and GFR - Last 168 Hours 07/30/23 07/30/23 00:06 05:47 Estim Creat Clear Calc 151.0 151.0 Estimated GFR > 60 > 60 Vancomycin Loading Dose: 2000mg Current Vancomycin Dosing Regimen: 1000mg Q8H Vancomycin Monitoring using AUC goal of 400 - 600 range with trough as surrogate marker: 495 mg/L Date and Time for next Vancomycin Level to be drawn: 07/30/23 @2100 Pharmacist Comments on Vancomycin Plan: obeses model being used, predicted trough of 15.8 mg/L. Will continue to monitor and adjust accordingly Vancomycin dosing will take advantage of [employer] as a clinical decision support tool that uses Bayesian modeling to calculate individual patient's pharmacokinetic parameters and forecast the patient's drug concentration time course with the target goal AUC 24 range of 400 - 600 mg/L/hr.
--- NOTE | 2023-07-30 07:12 | PHA.MEDREC ---
Pharmacy Consult ? Medication Reconciliation Pharmacy has reviewed the medication reconciliation. Also saw nurses note that patient does not take his amlodipine because it makes him tired.
[2023-07-30] MEDS: 0.9 % Sodium Chloride Flush 3 ML SYRINGE IVFLUSH ×3 (08:12→21:51)
[2023-07-30] MEDS: vancomycin HCL 1,000 MG in 0.9 % Sodium Chloride 250 ML 270 MG IV ×2 (08:13→16:00)
[2023-07-30 08:16] VITALS: BP 141/87; PULSE 86; RESP 18; TEMP 36.7; O2SAT 97
--- NOTE | 2023-07-30 08:19 | PC.NURSE ---
patient awake, ate all of breakfast. able to ambulate independently. alert and oriented, respirations even and unlabored - offering no complaints at this time. vitals stable, medicated per the MAR. transporter to bring patient to room.
[2023-07-30 08:50] VITALS: BP 160/92; PULSE 90; RESP 20; TEMP 36.5; O2SAT 98
[2023-07-30] MEDS: Docusate Sodium 100 MG CAPSULE PO ×2 (08:54→21:51)
[2023-07-30] MEDS: lisinopriL 20 MG TABLET PO (08:54)
[2023-07-30 09:55] VITALS: BMI 41.8
[2023-07-30] MEDS: cefTRIAXone sodium 1 GM in 0.9 % Sodium Chloride 50 ML IV (10:34)
--- NOTE | 2023-07-30 11:33 | MHC.CM.PN ---
IMM 07/30/23, EMR REVIEWED, PT ADMITTED W/RLE CELLULITIS, PT REPORTS HE IS INDEPENDENT W/CARE, HAS A CPAP AT HOME AND HELPS HIM W/ANY NEEDS, NO HOME SERVICES, PT REPORTS GOAL OF DC IS HOME AND DOES NOT FEEL HE NEEDS VNA SERVICES. PT PCP ON FILE VERIFIED, FULLY COVID VACCINATED AND HCP IS LISSETH YOU [phone] AND SISTER/PRIMARY CONTACT NICOLE, COPY HAS BEEN REQUESTED.
[2023-07-30 11:52] LABS: Glucose, Whole Blood 87 mg/dL (60-115)
--- NOTE | 2023-07-30 15:03 | PM.EVENT ---
Event Note Date of Service: 07/30/23 Event Note: seen and examined this morning. admitted early today for RLE cellulitis i don't see outpatient rx for doxy but was treated with Doxy in May no fever or chills Cellulitis of the right leg due to diabetes and underlying lymphedema not clear if he indeed has failed outpatient therapy since he has no recollection of taking Doxycycline - admit and continue with IV antibiotics, currently on vanco, ceftriaxone Uncontrolled hypertension - increase dose of Lisinopril to 40 mg daily (currently on 20 mg daily) if BP remains high Morbid obesity - BMI of 41.8 - encourage weight loss Type 2 diabetes mellitus - continue metformin, POCs, ADA diet LETA cpap physical exam and plan as per H&P dvt ppx - lovenox Time Spent With Patient Time: Total time managing care of this patient today ____ minutes.
[2023-07-30 15:18] VITALS: BP 140/90; PULSE 82; RESP 16; TEMP 36.8; O2SAT 99
[2023-07-30 16:43] LABS: Glucose, Whole Blood 72 mg/dL (60-115)
[2023-07-30 18:59] VITALS: BP 139/68; PULSE 85; RESP 18; TEMP 36.6; O2SAT 96
[2023-07-30 20:43] LABS: Glucose, Whole Blood 92 mg/dL (60-115)
[2023-07-30 22:45] VITALS: PULSE 95; O2SAT 96
[2023-07-31] MEDS: vancomycin HCL 1,000 MG in 0.9 % Sodium Chloride 250 ML 270 MG IV ×3 (00:13→15:55)
[2023-07-31 03:15] VITALS: BP 142/83; PULSE 79; RESP 18; TEMP 36.4; O2SAT 98
[2023-07-31 04:20] VITALS: PULSE 81; RESP 18; O2SAT 96
[2023-07-31 06:46] LABS: Creatinine Clr Calc Pharmacy 164.2; Estimated Glomerular Filt Rate > 60
[2023-07-31 07:11] VITALS: BP 149/82; PULSE 69; RESP 18; TEMP 36.4; O2SAT 99
[2023-07-31 07:11] LABS: Glucose, Whole Blood 104 mg/dL (60-115)
[2023-07-31] MEDS: 0.9 % Sodium Chloride Flush 3 ML SYRINGE IVFLUSH ×3 (08:33→20:10)
[2023-07-31] MEDS: cefTRIAXone sodium 1 GM in 0.9 % Sodium Chloride 50 ML IV (08:33)
[2023-07-31] MEDS: lisinopriL 20 MG TABLET PO (08:33)
[2023-07-31] MEDS: Docusate Sodium 100 MG CAPSULE PO ×2 (08:33→20:09)
--- NOTE | 2023-07-31 09:53 | P.PNIM_ITS ---
Subjective Subjective Date of Service: 07/31/23 Interval History: seen and examined this morning follow up for RLE cellulitis denies fever or chills, overall feeling better, but still with swelling and pain Review of Systems Review of Systems: Yes all other systems are reviewed and are negative Constitutional Constitutional: Denies chills and Denies fever(s) Cardiovascular Cardiovascular: Denies chest pain, Denies palpitations and Denies dyspnea Respiratory Respiratory: Denies cough and Denies dyspnea Endocrine Endocrine: Denies palpitations Physical Exam 2 Vital Signs: Vital Signs: Last Vital Signs Temp 97.5 F 07/31/23 07:11 Pulse 69 07/31/23 07:11 Resp 18 07/31/23 07:11 BP 149/82 H 07/31/23 07:11 Pulse Ox 99 07/31/23 07:11 O2 Del Method Room Air 07/31/23 07:11 BMI result Body Mass Index 41.8 Skin: Other: right leg, scant drainage, no abscess or drainable fluid collection Objective Data Active Medications Acetaminophen (Acetaminophen 325 Mg Tablet) 650 mg PO Q6H PRN PRN Reason: Pain, Mild (Pain Scale 1-3) Al Hydroxide/Mg Hydroxide (Magnesium Hydrox/Alum Hydrox 30 Ml Oral.Susp) 30 ml PO Q4H PRN PRN Reason: Heartburn/Nausea Dextrose (Dextrose 50 % 25 Gm/50 Ml Syringe) 25 gm IVPUSH Q15M PRN; Protocol PRN Reason: per Hypoglycemia Standing Ord. Docusate Sodium (Docusate Sodium 100 Mg Capsule) 100 mg PO BID [facility] Last Admin: 07/31/23 08:33 Dose: 100 mg Documented By: VICENTE Enoxaparin Sodium (Enoxaparin Sodium 40 Mg/0.4 Ml Syringe) 40 mg SUBCUT BEDTIME [facility] Last Admin: 07/30/23 21:50 Dose: 40 mg Documented By: SHAHEEN Glucose (Glucose Gel 15 Gm Gel..Gram.) 15 gm PO Q15M PRN; Protocol PRN Reason: per Hypoglycemia Standing Ord. Ceftriaxone Sodium 1 gm/ (Sodium Chloride) 50 mls @ 100 mls/hr IV DAILY [facility] Last Infusion: 07/31/23 09:03 Dose: Infused Documented By: VICENTE Vancomycin HCl 1,000 mg/ (Sodium Chloride) 270 mls @ 270 mls/hr IV Q8H [facility] Last Admin: 07/31/23 08:51 Dose: 270 mls/hr Documented By: VICENTE Insulin Human Lispro (Insulin Lispro 100 Unit/Ml 3 Ml Vial) 0 unit SUBCUT QIDACHS [facility]; Protocol Last Admin: 07/31/23 07:18 Dose: Not Given Documented By: VICENTE Non-Admin Reason: [id number] Lisinopril (Lisinopril 20 Mg Tablet) 20 mg PO DAILY [facility]; Protocol Last Admin: 07/31/23 08:33 Dose: 20 mg Documented By: VICENTE Melatonin (Melatonin 3 Mg Tablet) 6 mg PO BEDTIME PRN PRN Reason: Insomnia Ondansetron HCl (Ondansetron Hcl 4 Mg/2 Ml Vial) 4 mg IVPUSH Q8H PRN PRN Reason: Nausea and Vomiting Pharmacy Consult (Consult Rx Vancomycin Dosing) 1 each MISCELLANE BID [facility] Sodium Chloride (0.9 % Sodium Chloride Flush 3 Ml Syringe) 3 ml IVFLUSH QSHIFT [facility] Last Admin: 07/31/23 08:33 Dose: 3 ml Documented By: VICENTE Labs 07/30/23 05:47 07/31/23 05:46 Labs: Laboratory Results - last 24 hr 07/30/23 07/30/23 07/30/23 11:27 16:36 20:39 Hold Purple Top Estim Creat Clear Calc Estimated GFR POC Glucose 87 72 92 Vancomycin Trough 07/30/23 07/31/23 07/31/23 21:13 05:46 06:59 Hold Purple Top SEE NOTE Estim Creat Clear Calc 164.2 Estimated GFR > 60 POC Glucose 104 Vancomycin Trough 12.0 Microbiology Microbiology Results: Microbiology 07/30/23 00:45 Blood Culture - Preliminary Blood - Venous No growth after 24 hours. 07/30/23 00:06 Blood Culture - Preliminary Blood - Venous No growth after 24 hours. 07/30/23 00:43 Gram Stain - Final Leg Right Assessment and Plan (1) Cellulitis of leg, right: Status: Acute Plan 43 year old morbidly obese white male with history of type 2 diabetes mellitus, hypertension and lymphedema of the right leg here with cellulitis of RLE 1. Cellulitis of the right leg due to DM no sepsis, but extensive involvement from knee to foot US negative for DVT continue IV vanco and ceftriaxone started 07/30, possible change to po in am blood cultures negative wound culture with 3+GPC but superficial culture keep leg elevated pain controlled with tylenol 2. Uncontrolled hypertension continue lisinopril 3. Morbid obesity BMI of 41.8 encourage weight loss 4. Type 2 diabetes mellitus metformin on hold SSI, follow POCs - sugar well controlled, Hba1c pending ADA diet 5. LETA CPAP at night DVT: SC Lovenox CODE STATUS: Full code attending: Dr. Preciado Patient requires ongoing inpatient hospitalization due to extensive leg cellulitis and need for IV antibiotics Quality Stroke Does the patient have a stroke diagnosis?: No VTE Prior VTE?: No VTE Risk Level:: Medical - moderate - high VTE Device Contraindication: Treatment Not Indicated VTE Drug Contraindication: N/A - Med Ordered
[2023-07-31 10:44] LABS: Estimated Average Glucose 131 mg/dL; Hemoglobin A1c % 6.2 % (<6.0)
[2023-07-31 10:59] LABS: Glucose, Whole Blood 151 mg/dL (60-115)
[2023-07-31] MEDS: Insulin Lispro 100 UNIT/ML 3 ML VIAL SUBCUT (11:23)
[2023-07-31 15:10] LABS: Glucose, Whole Blood 95 mg/dL (60-115)
[2023-07-31 15:15] VITALS: BP 156/94; PULSE 84; RESP 18; TEMP 37.1; O2SAT 95
[2023-07-31 19:06] VITALS: BP 127/85; PULSE 88; RESP 18; TEMP 36.7; O2SAT 99
[2023-07-31] MEDS: Enoxaparin Sodium 40 MG/0.4 ML SYRINGE SUBCUT (20:09)
[2023-07-31 20:24] LABS: Glucose, Whole Blood 130 mg/dL (60-115)
[2023-07-31 21:26] LABS: Vancomycin Random 13.7 mcg/mL (15-20)
[2023-08-01 00:43] VITALS: PULSE 88; RESP 18; O2SAT 99
[2023-08-01] MEDS: vancomycin HCL 1,000 MG in 0.9 % Sodium Chloride 250 ML 270 MG IV ×3 (00:51→15:37)
[2023-08-01 03:19] VITALS: BP 129/80; PULSE 84; RESP 18; TEMP 36.6; O2SAT 99
[2023-08-01 06:44] LABS: Creatinine Clr Calc Pharmacy 168.5; Estimated Glomerular Filt Rate > 60
[2023-08-01 07:00] VITALS: BP 134/72; PULSE 69; RESP 20; TEMP 37.1; O2SAT 97
[2023-08-01] MEDS: 0.9 % Sodium Chloride Flush 3 ML SYRINGE IVFLUSH ×3 (07:38→23:50)
[2023-08-01] MEDS: Docusate Sodium 100 MG CAPSULE PO ×2 (07:38→21:26)
[2023-08-01] MEDS: lisinopriL 20 MG TABLET PO (07:38)
[2023-08-01 07:59] LABS: Glucose, Whole Blood 119 mg/dL (60-115)
[2023-08-01] MEDS: cefTRIAXone sodium 1 GM in 0.9 % Sodium Chloride 50 ML IV (09:48)
[2023-08-01 11:08] LABS: Glucose, Whole Blood 120 mg/dL (60-115)
--- NOTE | 2023-08-01 12:19 | P.PNIM_ITS ---
Subjective Subjective Date of Service: 08/01/23 Interval History: leg still red/swollen no fever Physical Exam 2 Vital Signs: Vital Signs: Last Vital Signs Temp 98.7 F 08/01/23 07:00 Pulse 69 08/01/23 07:00 Resp 20 08/01/23 07:00 BP 134/72 08/01/23 07:00 Pulse Ox 97 08/01/23 07:00 O2 Del Method CPAP 08/01/23 07:00 BMI result Body Mass Index 41.8 Gen: in no acute distress HEENT: sclera anicteric, moist mucus membranes Neck: supple Lungs: clear to auscultation bilaterally Heart: regular rate and rhythm, no murmurs Abd: soft, non-tender, non-distended, morbidly obese Ext: no edema Skin: warm/well-perfused, extensive erythema/ swelling of R leg below the knee without any fluctuance Neuro: alert and oriented x3, no focal findings Psych: appropriate affect Objective Data Active Medications Acetaminophen (Acetaminophen 325 Mg Tablet) 650 mg PO Q6H PRN PRN Reason: Pain, Mild (Pain Scale 1-3) Al Hydroxide/Mg Hydroxide (Magnesium Hydrox/Alum Hydrox 30 Ml Oral.Susp) 30 ml PO Q4H PRN PRN Reason: Heartburn/Nausea Dextrose (Dextrose 50 % 25 Gm/50 Ml Syringe) 25 gm IVPUSH Q15M PRN; Protocol PRN Reason: per Hypoglycemia Standing Ord. Docusate Sodium (Docusate Sodium 100 Mg Capsule) 100 mg PO BID [facility] Last Admin: 08/01/23 07:38 Dose: 100 mg Documented By: VICENTE Enoxaparin Sodium (Enoxaparin Sodium 40 Mg/0.4 Ml Syringe) 40 mg SUBCUT BEDTIME [facility] Last Admin: 07/31/23 20:09 Dose: 40 mg Documented By: SHAHEEN Glucose (Glucose Gel 15 Gm Gel..Gram.) 15 gm PO Q15M PRN; Protocol PRN Reason: per Hypoglycemia Standing Ord. Ceftriaxone Sodium 1 gm/ (Sodium Chloride) 50 mls @ 100 mls/hr IV DAILY [facility] Last Infusion: 08/01/23 10:18 Dose: Infused Documented By: VICENTE Vancomycin HCl 1,000 mg/ (Sodium Chloride) 270 mls @ 270 mls/hr IV Q8H [facility] Last Infusion: 08/01/23 08:37 Dose: Infused Documented By: VICENTE Insulin Human Lispro (Insulin Lispro 100 Unit/Ml 3 Ml Vial) 0 unit SUBCUT QIDACHS [facility]; Protocol Last Admin: 08/01/23 11:28 Dose: Not Given Documented By: VICENTE Non-Admin Reason: poc= 120 Lisinopril (Lisinopril 20 Mg Tablet) 20 mg PO DAILY [facility]; Protocol Last Admin: 08/01/23 07:38 Dose: 20 mg Documented By: VICENTE Melatonin (Melatonin 3 Mg Tablet) 6 mg PO BEDTIME PRN PRN Reason: Insomnia Ondansetron HCl (Ondansetron Hcl 4 Mg/2 Ml Vial) 4 mg IVPUSH Q8H PRN PRN Reason: Nausea and Vomiting Pharmacy Consult (Consult Rx Vancomycin Dosing) 1 each MISCELLANE BID [facility] Sodium Chloride (0.9 % Sodium Chloride Flush 3 Ml Syringe) 3 ml IVFLUSH QSHIFT [facility] Last Admin: 08/01/23 07:38 Dose: 3 ml Documented By: VICENTE Labs 07/30/23 05:47 08/01/23 05:42 Labs: Laboratory Results - last 24 hr 07/31/23 07/31/23 07/31/23 14:55 20:06 20:55 Hold Purple Top Estim Creat Clear Calc Estimated GFR POC Glucose 95 130 H C-Reactive Protein Random Vancomycin 13.7 L 08/01/23 08/01/23 08/01/23 05:42 07:20 10:47 Hold Purple Top SEE NOTE Estim Creat Clear Calc 168.5 Estimated GFR > 60 POC Glucose 119 H 120 H C-Reactive Protein 0.90 H Random Vancomycin Microbiology Microbiology Results: Microbiology 07/30/23 00:43 Gram Stain - Final Leg Right Routine Culture - Preliminary Culture in progress. 07/30/23 00:45 Blood Culture - Preliminary Blood - Venous No growth after 48 hours. 07/30/23 00:06 Blood Culture - Preliminary Blood - Venous No growth after 48 hours. Assessment and Plan (1) Cellulitis of leg, right: Status: Acute Plan d3 43yo M with morbid obesity, DM2, HTN, lymphedema of RLE admitted with RLE cellulitis RLE cellulitis due to DM + lymphedema - IV vanco 07/30-, change IV ceftriaxone to clindamycin to shut off toxinc production - BCx negative, superficial wound Cx wiht GPCs - US neg for DVT HTN - lisinopril DM2 - hold MTF, continue correction-dose lispro morbid obesity - diet/exercise counseling VTE ppx - LMWH dispo - eventual home In my clinical judgment, the patient requires continued inpatient hospitalization for the following reasons: IV ABX Total time managing care of this patient today: 35 minutes. Quality Stroke Does the patient have a stroke diagnosis?: No VTE Prior VTE?: No VTE Risk Level:: Medical - moderate - high VTE Device Contraindication: Treatment Not Indicated VTE Drug Contraindication: N/A - Med Ordered
[2023-08-01] MEDS: Clindamycin Phosphate/D5W 300 MG/50 ML PIGGYBACK 100 MG IV ×3 (13:26→23:49)
[2023-08-01 15:34] VITALS: BP 147/80; PULSE 85; RESP 18; TEMP 36.9; O2SAT 98
[2023-08-01 15:34] LABS: Glucose, Whole Blood 97 mg/dL (60-115)
[2023-08-01 20:00] VITALS: BP 143/91; PULSE 80; RESP 18; TEMP 36.7; O2SAT 96
[2023-08-01 21:17] LABS: Glucose, Whole Blood 133 mg/dL (60-115)
[2023-08-01] MEDS: Enoxaparin Sodium 40 MG/0.4 ML SYRINGE SUBCUT (21:26)
[2023-08-01 21:43] LABS: Vancomycin Random 13.9 mcg/mL (15-20)
[2023-08-02 00:04] VITALS: BP 143/91; PULSE 87; RESP 20; TEMP 36.8; O2SAT 96
[2023-08-02] MEDS: vancomycin HCL 1,000 MG in 0.9 % Sodium Chloride 250 ML 270 MG IV ×2 (00:38→09:01)
[2023-08-02 01:29] VITALS: PULSE 83; RESP 20; O2SAT 98
[2023-08-02 03:35] VITALS: BP 144/92; PULSE 71; RESP 20; TEMP 36.3; O2SAT 99
[2023-08-02] MEDS: Clindamycin Phosphate/D5W 300 MG/50 ML PIGGYBACK 100 MG IV (05:57)
[2023-08-02 07:20] VITALS: BP 145/83; PULSE 79; RESP 18; TEMP 36.4; O2SAT 97
[2023-08-02 07:46] LABS: Hematocrit 46.2 % (42.0-52.0); Hemoglobin 14.9 g/dl (14.0-18.0); Mean Corpuscular HGB Conc 32.3 g/dl (31.0-36.0); Mean Corpuscular Hemoglobin 28.7 pg (27.0-33.0); Mean Platelet Volume 10.9 fL (9.4-12.4); Platelet Count 332 X10*3/uL (160-400); Red Blood Count 5.19 X10*6/uL (4.60-5.80); Red Cell Distribution Width 14.4 % (11.0-16.0); White Blood Count 9.8 X10*3/uL (4.8-10.8)
[2023-08-02 07:57] LABS: Estimated Glomerular Filt Rate > 60
[2023-08-02 08:07] LABS: Glucose, Whole Blood 126 mg/dL (60-115)
[2023-08-02] MEDS: 0.9 % Sodium Chloride Flush 3 ML SYRINGE IVFLUSH (09:01)
[2023-08-02] MEDS: Docusate Sodium 100 MG CAPSULE PO (09:01)
[2023-08-02] MEDS: lisinopriL 20 MG TABLET PO (09:01)
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
--- NOTE | 2023-08-02 10:47 | MHC.CM.PN ---
Per ROUNDS discussion, Patient is not yet medically cleared for dc (ID Consult is needed); home is the goal and CM will continue to follow.
[2023-08-02 11:29] LABS: Glucose, Whole Blood 85 mg/dL (60-115)
[2023-08-02 11:32] VITALS: BP 142/81; PULSE 98; RESP 18; TEMP 36.2; O2SAT 96
--- NOTE | 2023-08-02 12:08 | PM.DS ---
DS: Providers Provider Date of Service: 08/02/23 Date of admission: 07/30/23 03:35 Primary care physician: Shaye Soria MD Consults: 07/31/23 11:59 Consult to Wound Care Routine Reason for consultation: RLE cellulitis, chronic lymphedema, 3 venous stasis like ulcerations Has provider been notified: Yes DS: Diagnosis Discharge Diagnosis (1) Cellulitis of leg, right: Status: Acute DS: Summary Hospital Course Hospital Course: 43 year old morbidly obese white male with history of type 2 diabetes mellitus, hypertension and lymphedema of the right leg presents to the emergency complaining of increasing pain and swelling of the right leg and foot that has been present for the last 1 month but reportedly worse over the last few days and now also with open wounds draining purulent material. He denied any preceding trauma or associated fevers or chills. He was reportedly started on Doxycycline on 07/20 (per ED records) but patient has no recollection of taking it at home. Work up done in the emergency room revealed a mild leucocytosis of 11.8 k/mm3. he was started on IV Vancomycin and admission requested. Treated for RLE cellulitis with IV vancomycin and Rocephin due to failed o/p oral abx. Eryrthmema improved significantly, no further areas of weeping. no fever or leukocytosis noted. blood cx negative, ambulating with no pain. Chronic edema to LE bilaterally. He will be discharged home to complete course of abx. HTN on lisinopril DM2 continue home medications morbid obesity diet/exercise counseling Time Attestation Discharge coordination time: Greater than 30 minutes Quality: Safe Use of Opioids Does Pt have an Active Cancer Diagnosis on the Problem List?: No Quality: Stroke Does the patient have a stroke diagnosis?: No Physical Exam Vital Signs: Vital Signs: Last Vital Signs Temp 97.2 F 08/02/23 11:32 Pulse 98 08/02/23 11:32 Resp 18 08/02/23 11:32 BP 142/81 H 08/02/23 11:32 Pulse Ox 96 08/02/23 11:32 O2 Del Method Room Air 08/02/23 11:32 BMI result Body Mass Index 41.8 Appearing in no acute distress head is normocephalic atraumatic eyes pupils are PERRLA sclera is anicteric mouth throat mucous membranes are intact and moist neck is supple no lymphadenopathy, no JVD noted lung sounds are clear to auscultation heart regular rate rhythm, clear S1, S2 positive bowel sounds, abdomen is soft, nontender neuro patient is alert x3, no focal deficits mild erythema and edema to RLE. no open wounds or weeping noted DS: Data Data Completed and Pending Labs on day of discharge: Laboratory Results - last 24 hr 08/01/23 08/01/23 08/01/23 15:16 20:45 21:00 WBC RBC Hgb Hct MCV MCH MCHC RDW Plt Count MPV Absolute Nucleated RBC Nucleated RBC % (auto) Creatinine Estim Creat Clear Calc Estimated GFR POC Glucose 97 133 H Random Vancomycin 13.9 L 08/02/23 08/02/23 08/02/23 07:26 07:53 11:15 WBC 9.8 RBC 5.19 Hgb 14.9 Hct 46.2 MCV 89.0 MCH 28.7 MCHC 32.3 RDW 14.4 Plt Count 332 MPV 10.9 Absolute Nucleated RBC 0.000 Nucleated RBC % (auto) 0.0 Creatinine 0.87 Estim Creat Clear Calc 151.0 Estimated GFR > 60 POC Glucose 126 H 85 Random Vancomycin Preliminary micro results at discharge 07/30/23 00:43 Routine Culture - Preliminary Leg Right Staphylococcus aureus Gram negative caryl 07/30/23 00:45 Blood Culture - Preliminary Blood - Venous No growth after 48 hours. 07/30/23 00:06 Blood Culture - Preliminary Blood - Venous No growth after 48 hours. Discharge Plan Discharge Anticipated Discharge Date/Time: 08/02/23 12:01 Patient Disposition: Home, Self-Care Discharge Diagnosis: Right lower extremity cellulitis Referrals: Shaye Soria MD [Primary Care Provider] - 1 Week Discharge Medications: New clindamycin HCl 300 mg capsule 300 mg PO Q6H Qty: 24 0RF doxycycline hyclate 100 mg tablet 100 mg PO DAILY Qty: 12 0RF Continued metformin 500 mg tablet 1 tab PO DAILY lisinopril 20 mg tablet 1 tab PO DAILY Discharge Orders: Discharge Order (Routine); Ordered 08/02/23 Ordered By: Noreen Gutierrez Diet: Advance to usual diet Activity on Discharge: As tolerated Stand Alone Forms: Patient Portal Discharge page Care Plan Goals: Complete course of antibiotic Keep area to right lower leg clean and dry. May use soap and water daily and pat dry Health Concerns: Right lower extremity cellulitis Plan of Treatment: Follow up with primary care provider as needed Take all medications as prescribed Assessment: See discharge summary
--- NOTE | 2023-08-02 12:24 | MHC.CM.PN ---
EMR REVIEWED. PATIENT MEDICALLY CLEARED FOR DC HOME, SELF CARE, WILL CONT PO ABX. FRIEND WILL PROVIDE TRANSPORTATION AT APPROX 1:30PM. IMM DELIVERED.
== END 2023-08-02 12:39 | disposition home or self-care (01) | DRG 638 ==
LOC: HO.ED 07-30 01:28 → HO.EDOVER 07-30 03:43 → HO.IMC 07-30 05:54 → HO.S3 08-02 09:51
PROVIDERS: Family Medicine; Physician Assistant Medical; Admitting Provider Internal Medicine; Emergency Provider Internal Medicine; PCP Internal Medicine; Visit Provider Nurse Practitioner Acute Care
DX: E11.628 Type 2 diabetes mellitus with other skin complications (principal); L03.115 Cellulitis of right lower limb; Z68.41 Body mass index [BMI] 40.0-44.9, adult; E66.01 Morbid (severe) obesity due to excess calories; I10 Essential (primary) hypertension; I87.321 Chronic venous hypertension (idiopathic) with inflammation of right lower extremity; Z79.84 Long term (current) use of oral hypoglycemic drugs; Z79.899 Other long term (current) drug therapy
CPT/HCPCS: 36415; 80048; 80053; 80202; 82565; 82947; 83036; 83605; 84484; 85025; 85027; 86140; 87040; 87070; 87077; 87186; 87205; 93005; 94660; 99285; J0696; J0736; J1650; J3370

== ENCOUNTER → 2023-07-29 23:56 | Outpatient (BNV) | payer MEDICARE, SELFPAY | PROVIDERS: Admitting Provider Internal Medicine; Emergency Provider Internal Medicine; PCP Internal Medicine; Visit Provider Internal Medicine Cardiovascular Disease | DX: A41.9 Sepsis, unspecified organism (principal) | CPT/HCPCS: 93010 ==

== ENCOUNTER → 2023-07-30 03:35 | Outpatient (BNV) | payer MEDICARE, SELFPAY | PROVIDERS: Admitting Provider Internal Medicine; Emergency Provider Internal Medicine; PCP Internal Medicine; Visit Provider Internal Medicine | DX: L03.115 Cellulitis of right lower limb (principal); E11.9 Type 2 diabetes mellitus without complications; E66.01 Morbid (severe) obesity due to excess calories; Z68.41 Body mass index [BMI] 40.0-44.9, adult; I87.2 Venous insufficiency (chronic) (peripheral); R60.0 Localized edema; I10 Essential (primary) hypertension | CPT/HCPCS: 99223; 99232; 99239; 99499 ==

== ENCOUNTER 2024-03-13 17:54 | Emergency (ER) | payer MEDICARE, SELFPAY ==
--- NOTE | ~2024-03-13 | XR_ITS ---
EXAMINATION: XR KNEE, LEFT CLINICAL INFORMATION: Knee pain COMPARISON: No images of the left knee available TECHNIQUE: Four views of the left knee. FINDINGS: Small knee joint effusion. Extensive tricompartmental degenerative changes are seen. There is a large osteochondral loose body in the region of the tibial spine. This appears to be well corticated consistent with chronicity. I do not appreciate any acute superimposed fracture or dislocation. Old healed fracture of the visualized mid fibular diaphysis noted as well. XR/XR knee LT 4V IMPRESSION: Extensive tricompartmental degenerative changes. Large osteochondral loose body in the region of the tibial spine. This appears to be chronic in nature. Old healed mid fibular fracture.
[2024-03-13 17:59] VITALS: BP 120/0; PULSE 84; O2SAT 94
--- NOTE | 2024-03-13 18:01 | ED_ITS ---
HPI - General Adult General Chief complaint: Extremity Injury, Lower Stated complaint: L KNEE PAIN Time Seen by Provider: 03/13/24 17:59 Source: patient and EMS Mode of arrival: EMS Limitations: no limitations and altered mental status History of Present Illness ED Provider: Luther SHABAZZ HPI narrative: This is a 44 year old male presenting w/ left knee pain that started suddenly [employer]. He reports he felt a pop and then started having 8/10 pain to the left knee worse with movement and better at rest, also reports difficulty with weight bearing. Reports he is very uncomfortable. Denies trauma. Endorses previous injury to his left knee years ago with some sort of fracture. Denies numbenss, tingling, trauma, fevers, chills, cp, sob. Related Data Home Medications ?Medication ?Instructions ?Recorded ?Confirmed lisinopril 20 mg tablet 1 tab PO DAILY 03/04/22 07/30/23 metformin 500 mg tablet 1 tab PO DAILY 03/04/22 07/30/23 Previous Rx's ?Medication ?Instructions ?Recorded clindamycin HCl 300 mg capsule 300 mg PO Q6H #24 caps 08/02/23 doxycycline hyclate 100 mg tablet 100 mg PO DAILY #12 tabs 08/02/23 Allergies Allergy/AdvReac Type Severity Reaction Status Date / Time No Known Allergies Allergy Verified 03/13/24 18:13 Review of Systems 2 Review of Systems: Yes all other systems are reviewed and are negative PMFSH Past Medical History Attestation statement: The following information was validated with the patient. Source: old records reviewed and nursing notes reviewed Medical History Morbid (severe) obesity due to excess calories HTN (hypertension) DMII (diabetes mellitus, type 2) TBI (traumatic brain injury) Severe recurrent major depression Surgical History H/O left knee surgery H/O splenectomy Family History Family History Maternal Grandfather Cancer of unknown origin Father Prostate cancer Social History Social History Household Members: Family Household Members Other:: Sister Housing: House Do you presently have visiting nurse or other home services: No Alcohol intake: former Comment: pt low fall risk Patient Tobacco Use Status: Never used Tobacco e-Cigarette/Vaping Use: Never Used Second Hand Smoke Exposure: No Substance Use Type: Caffiene Advance Directives: No Advance Directives Information Provided: No service: No Sexual orientation: Straight/Heterosexual Physical Exam ED Vital Signs: Vital Signs - 24 hr 03/13/24 18:11 Temperature 99 F Pulse Rate 95 Respiratory Rate 18 Blood Pressure 138/83 Pulse Oximetry 96 Oxygen Delivery Method Room Air BMI result Body Mass Index 49.9 vss Appearance: Alert.? Oriented X3.? No acute distress.? Head: Normocephalic, atraumatic, no step-offs or deformities Eyes: Pupils equal, round and reactive to light.? ENT: Pharynx normal.? Neck: Normal inspection.? Neck supple.? CVS: Normal heart rate and rhythm.? Pulses normal.? Respiratory: No respiratory distress.? Breath sounds normal.? Abdomen: Soft and nontender.? Skin: Skin warm and dry.? Normal skin color.? Normal skin turgor.? Extremities: No lower extremity edema.? No calf ttp. 5/5 strength to bilateral upper and lower extremities + 2+ dorsalis pedis, anterior tibialis, posterior tibialis and popliteal pulses equal bilateral, painful range of motion no overlying cellulitis, warmth. Normal distal sensation. Back: No midline tenderness, no C-spine tenderness, full range of motion, no CVA tenderness bilaterally Neuro: Oriented X 3.? No motor deficit.? No sensory deficit. CN 2-12 intact Course Reevaluation(s) Reevaluation #1: CBC unremarkable. Chemistry no acute findings eating intervention. CRP just mildly elevated 0.61, much lower than his baseline. X-ray of left knee with extensive tricompartmental degenerative changes large osteochondral loose body in the region of tibial spine, likely chronic. Old healed mid fibular fracture. Will apply catherine wrap and give crutches. Will give tylenol for pain as he is still in pain. Time: 20:28 Reevaluation #2: Discussed discharge home with pain control and prednisone versus staying in house PT and case management patient does feel like his pain is debilitating and he is having difficulties with ambulation/activities of daily living therefore PT case management consult place. Will give Tylenol for pain and re-evaluate. At this time patient to be placed into observation to allow more time to be evaluated by physical therapy and case management. Time: 20:30 Medications Administered Discontinued Medications Generic Name Dose Route Start Last Admin Trade Name Sixto PRN Reason Stop Dose Admin Ketorolac Tromethamine 30 mg 03/13/24 20:03 03/13/24 20:19 Ketorolac Tromethamine 30 Mg/Ml Vial IM 03/13/24 20:04 30 mg ONCE ONE Administration Medical Decision Making Medical Decision Making [facility] Narrative: 44 year old male with Hx of cellulitis of the right leg and venous stasis of the right leg present to the ED with Left knee pain w/o trauma. Unable to bear weight or flex the left leg without significant pain. PE- moderate pain with left knee flexion. No swelling or erythema of the left knee. No numbness or paresthesia. Differential - likely left knee strain. less likely to be a ligament tear, or vascular occlusion, patellar fracture w/o trauma, septic arthritis, cellulitis, acute threat to limb. Plan- order CBC with diff, ESR and CRP, X-ray of the left knee, Pain control. Differential Diagnosis Differential Diagnoses: The differential diagnosis associated with the presentation includes Differential - likely left knee strain. less likely to be a ligament tear, or vascular occlusion, patellar fracture w/o trauma, septic arthritis, cellulitis, acute threat to limb. Admission/Observation Consideration of admission/observation: Escalation of care including admission/observation considered Possible Lab Data [facility] Lab Attestation statement: I reviewed the patient's lab results. 03/13/24 19:31 03/13/24 19:31 Labs: Lab Results 03/13/24 Range/Units 19:31 WBC 9.6 (4.8-10.8) X10*3/uL RBC 4.98 (4.60-5.80) X10*6/uL Hgb 14.6 (14.0-18.0) g/dl Hct 44.9 (42.0-52.0) % MCV 90.2 (80.0-98.0) fL MCH 29.3 (27.0-33.0) pg MCHC 32.5 (31.0-36.0) g/dl RDW 14.4 (11.0-16.0) % Plt Count 297 (160-400) X10*3/uL MPV 10.9 (9.4-12.4) fL Immature Gran % (Auto) 0.3 (0.0-0.4) % Neut % (Auto) 53.5 (45-73) % Lymph % (Auto) 32.6 (20-40) % [place] % (Auto) 9.7 (2-11) % Eos % (Auto) 3.5 (0-4) % Baso % (Auto) 0.4 (0-2) % Lymph # (Auto) 3.1 (1.2-4.9) X10*3/uL [place] # (Auto) 0.9 (0.1-1.2) X10*3/uL Eos # (Auto) 0.3 (0.0-0.4) X10*3/uL Baso # (Auto) 0.0 (0.0-0.2) X10*3/uL Abs Immat Gran (auto) 0.03 (0.00-0.03) X10*3/uL Absolute Neuts (auto) 5.1 (2.0-8.3) x10*3/uL Absolute Nucleated RBC 0.000 (0.0-0.012) X10*3/uL Nucleated RBC % (auto) 0.0 (0.0-0.2) /100WBC Sodium 141 (135-145) mmol/L Potassium 3.7 (3.3-5.1) mmol/L Chloride 108 (96-108) mmol/L Carbon Dioxide 24 (22-29) mmol/L Anion Gap 13 (12-20) BUN 12 (9-16) mg/dL Creatinine 0.82 (0.5-1.4) mg/dL Estim Creat Clear Calc 175.3 Estimated GFR > 60 Random Glucose 106 (60-115) mg/dL Calcium 9.1 (8.4-10.2) mg/dL C-Reactive Protein 0.61 H (< or = 0.50) mg/dL Independent Interpretation I performed an independent interpretation of an: Plain X-Ray (+ 2+ dorsalis pedis, anterior tibialis, posterior tibialis and popliteal pulses equal bilateral left knee with overlying left knee effusion and painful range of motion no overlying cellulitis, warmth. Normal distal sensation.) Radiology Impression Discussion of test interpretation with radiology: I have reviewed the radiologist's reading. External Record Review External record reviewed: Inpatient record, Office record, Outpatient record, Prior outpatient labs, Prior outpatient radiology, Primary care record and Outside ED record Prescription Management I considered prescription management with: Pain Medication and Other (prednisone, toradol ) Chronic Conditions Patient?s care impacted by: Other (hector, depression, obesity. ) Critical Care Time Critical Care Time Critical Care Time: No Discharge Plan Discharge Clinical Impression: Acute pain of left knee, Osteoarthritis Patient Disposition: Still a Patient Prescriptions: No Action metformin 500 mg tablet 1 tab PO DAILY lisinopril 20 mg tablet 1 tab PO DAILY clindamycin HCl 300 mg capsule 300 mg PO Q6H Qty: 24 0RF doxycycline hyclate 100 mg tablet 100 mg PO DAILY Qty: 12 0RF Print Language: [place]an
[2024-03-13 18:11] VITALS: BP 138/83; PULSE 95; RESP 18; TEMP 37.2; O2SAT 96; BMI 49.9
[2024-03-13 19:37] LABS: MANUAL DIFF FLAG NO
[2024-03-13 19:42] LABS: Basophils Percent Auto 0.4 % (0-2); Eosinophils Absolute Auto 0.3 X10*3/uL (0.0-0.4); Eosinophils Percent Auto 3.5 % (0-4); Hematocrit 44.9 % (42.0-52.0); Hemoglobin 14.6 g/dl (14.0-18.0); Imm Gran Abs Auto 0.03 X10*3/uL (0.00-0.03); Imm Gran Pct Auto 0.3 % (0.0-0.4); Lymphocytes Absolute Auto 3.1 X10*3/uL (1.2-4.9); Lymphocytes Percent Auto 32.6 % (20-40); Mean Corpuscular HGB Conc 32.5 g/dl (31.0-36.0); Mean Corpuscular Hemoglobin 29.3 pg (27.0-33.0); Mean Corpuscular Volume 90.2 fL (80.0-98.0); Mean Platelet Volume 10.9 fL (9.4-12.4); Monocytes Absolute Auto 0.9 X10*3/uL (0.1-1.2); Monocytes Percent Auto 9.7 % (2-11); Neutrophils Absolute Auto 5.1 x10*3/uL (2.0-8.3); Neutrophils Percent Auto 53.5 % (45-73); Platelet Count 297 X10*3/uL (160-400); Red Blood Count 4.98 X10*6/uL (4.60-5.80); Red Cell Distribution Width 14.4 % (11.0-16.0); White Blood Count 9.6 X10*3/uL (4.8-10.8)
[2024-03-13 19:58] LABS: Anion Gap 13 (12-20); Blood Urea Nitrogen 12 mg/dL (9-16); C Reactive Protein 0.61 mg/dL (< or = 0.50); Calcium 9.1 mg/dL (8.4-10.2); Carbon Dioxide 24 mmol/L (22-29); Chloride 108 mmol/L (96-108); Creatinine Clr Calc Pharmacy 175.3; Estimated Glomerular Filt Rate > 60; Glucose Random 106 mg/dL (60-115); Potassium 3.7 mmol/L (3.3-5.1); Sodium 141 mmol/L (135-145)
[2024-03-13] MEDS: Ketorolac Tromethamine 30 MG/ML VIAL IM (20:19)
[2024-03-13 20:44] LABS: Erythrocyte Sedimentation Rate 11 MM/HR (0-15)
--- NOTE | 2024-03-13 22:14 | PC.NURSE ---
Late entry: Pt presents to ED via EMS from home, reports he was walking and felt pop in left knee, felt like there was a piece of bone floating around. Denies fall or head hit. Reports old fx in left leg. Alert and oriented, breathing even and unlabored. No obvious deformity or bruising noted to left knee area, CSMs intact. Right lower leg is red with edema. Pain 9/10 in left knee.
--- NOTE | 2024-03-13 22:15 | PC.NURSE ---
Mark wrap applied to left knee, ice pack placed.
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
--- NOTE | 2024-03-13 23:00 | PC.NURSE ---
Assumed care of patient at this time. Patient a/ox4, in bed resting comfortably.
[2024-03-13 23:32] VITALS: BP 144/72; PULSE 83; RESP 18; TEMP 36.6; O2SAT 97
[2024-03-14 00:14] VITALS: PULSE 71; RESP 18; O2SAT 96
[2024-03-14 05:42] VITALS: BP 150/78; PULSE 75; RESP 19; O2SAT 98
[2024-03-14 07:17] LABS: Glucose, Whole Blood 130 mg/dL (60-115)
[2024-03-14 08:12] VITALS: BP 150/78; PULSE 75; O2SAT 98
[2024-03-14] MEDS: Acetaminophen 325 MG TABLET 650 MG PO (09:46)
[2024-03-14 10:36] LABS: COVID-19 Test Negative (Negative); IDNOW Serial# 152EDE1D
--- NOTE | 2024-03-14 11:31 | MHC.CM.ED ---
Addendum entered by Clementina Arnold 03/14/24 15:58: Insurance auth has been obtained. Patient can leave at 5pm. [facility] booked. Med [facility] with chart. Patient, Karon RN & Mecca SOMERS aware. Original Note: Patient remains in ER overflow. Physical therapy eval completed. Short term rehab is recommended. [facility] and [facility] able to offer a bed. These options were discussed with patient. [facility] choice. [facility] has been asked to obtain insurance auth. Continue to monitor for d/c needs.
[2024-03-14 11:39] LABS: Glucose, Whole Blood 114 mg/dL (60-115)
[2024-03-14 15:26] VITALS: BP 153/90; PULSE 76; RESP 18; TEMP 36.7; O2SAT 97
[2024-03-14 16:42] LABS: Glucose, Whole Blood 121 mg/dL (60-115)
--- NOTE | 2024-03-14 16:58 | PC.NURSE ---
Received report from previous RN @700. Pt A&Ox4, VSS, resting comfortably in bed. R-leg is significantly larger than pt left leg, which was also noted by Per previous RN. Pt denies discomfort or pain with R-leg. L-knee is wrapped in an Mark wrap. Plan is for pt to go to short term rehab at [facility].
--- NOTE | 2024-03-14 18:41 | PC.NURSE ---
RN to RN report given to Eboni at [facility].
--- NOTE | 2024-03-14 19:24 | MHC.CM.ED ---
Addendum entered by Latonia Ramsey 03/14/24 21:31: Pt is refusing to stay. States he feels like his knee is improved and has gotten better with rest. Able to stand. Will not stay overnight for STR tomorrow. Pt called his sister for a ride. Pt is agreeable for home PT. Pt isd aware that if he has increasing difficulty ambulating, he can always come back to the ED. Pt was discharged. Ambulated independently to waiting room with sister. Referrals placed for home PT Original Note: Pt was discharged to [facility] RN to RN report at 1841. Verified. [facility] liaison Lolis Garcia offered a bed at facility at 0849 via [facility]. Auth was obtained at 1550. Clementina spoke with [facility] at 1621 to confirm BLS booked for 1700. Due to high volume, [facility] picked up patient at 1830. CM received a call from facility at 1845 stating they had no knowledge of this patient coming to their facility and would not accept him. CM reviewed time line with staff member on the phone regarding acceptance, auth and transport time booked. Was told that sometimes computers are wrong. CM explained that this is how STR and LTC are booked. CM was still told they would not accept him and that CM should contact the ambulance. CM explained that the patient was on route. CM was told they will send him back to the ED. Brigid Juarez aware of above. Above documented in [facility] with liaison. Charge nurse aware. CM will review in am.
== END 2024-03-14 18:42 | disposition skilled nursing facility (03) ==
PROVIDERS: Physician Assistant; Physician Assistant Medical; Emergency Provider Emergency Medicine
DX: M17.12 Unilateral primary osteoarthritis, left knee (principal); M25.562 Pain in left knee; R26.2 Difficulty in walking, not elsewhere classified; Z79.899 Other long term (current) drug therapy; Z11.52 Encounter for screening for COVID-19
CPT/HCPCS: 36415; 73564; 80048; 82947; 85025; 85652; 86140; 87635; 96372; 97162; 99284; 99285; J1885

== ENCOUNTER 2024-03-14 19:29 | Emergency (ER) | payer MEDICARE, SELFPAY ==
[2024-03-14 19:31] VITALS: BP 140/96; BP 156/97; PULSE 80; RESP 16; TEMP 36.8; O2SAT 97; O2SAT 98; BMI 41.8
[2024-03-14 19:44] VITALS: BP 156/97; PULSE 80; RESP 16; TEMP 36.8; O2SAT 97
--- NOTE | 2024-03-14 21:00 | PC.NURSE ---
patient called sister to have her pick him up.UPon sister arrival it was explained that it would be a bit and a physician would be in. Instead of waiting, patient left without being seen with sister. patient ambulated independently and with a steady gait.
== END 2024-03-14 21:00 | disposition left against medical advice (07) ==
PROVIDERS: Emergency Provider Emergency Medicine; PCP Internal Medicine
DX: M25.562 Pain in left knee (principal)
CPT/HCPCS: 99281; 99284

== ENCOUNTER 2025-06-23 16:14 | Observation (INO) | payer MEDICARE, SELFPAY ==
--- NOTE | ~2025-06-23 | XR_ITS ---
CLINICAL HISTORY: Unresponsiveness 1 view chest x-ray. Comparison: None Findings: No consolidation or effusion. Slight increased markings overlying left lung base could suggest minimal pneumonitis, without focal consolidation. Cardiac and mediastinal contours appear unremarkable. Bones unremarkable. Impression: 1. Slight increased markings overlying left lung base could suggest mild pneumonitis, without brandee consolidation. No other acute disease. This document has been electronically signed by: Virgil Son MD on 06/23/2025 17:15:18
--- NOTE | ~2025-06-23 | US_ITS ---
CLINICAL HISTORY: Bilateral lower extremity swelling R>L --- Additional Notes or Special Instructions: Called in @ 1633 Bilateral lower extremity venous duplex ultrasound. Comparison: 05/26/2023 Technique: Real time sonographic imaging, including color-flow imaging and spectral analysis, was performed by the ios software engineer. Multiple freight representative static images were saved for review. Findings: The deep venous systems of both lower extremities are fully compressible from common femoral through the proximal leg veins. There is spontaneous and phasic flow, and augmentation. Color Doppler and spectral tracings are unremarkable. Impression: 1. Bilateral lower extremity venous duplex ultrasound negative for DVT This document has been electronically signed by: Virgil Son MD on 06/23/2025 18:21:44
--- NOTE | ~2025-06-23 | CT_ITS ---
CLINICAL HISTORY: Unresponsiveness --- Additional Notes or Special Instructions: NOT RDY @4576 CT head without contrast Comparison: None Findings: No intracranial mass, midline shift, hydrocephalus, or acute hemorrhage. No CT evidence of acute ischemia. There is mild right frontal encephalomalacia. There appears to be some mild left frontal encephalomalacia with minimal ex vacuo dilatation of the left frontal horn as well. Visualized paranasal sinuses and mastoid air cells reveal mucosal thickening and retention cysts involving left maxillary sinus with scattered partially opacified ethmoid air cells bilaterally. Orbits unremarkable. No skull fracture Impression: 1. No acute intracranial abnormalities. This document has been electronically signed by: Virgil Son MD on 06/23/2025 18:38:38
--- NOTE | 2025-06-23 16:29 | ECG_ITS ---
Test Reason : HYPERTENSIVE Blood Pressure : */* mmHG Vent. Rate : 78 BPM Atrial Rate : 78 BPM P-R Int : 166 ms QRS Dur : 106 ms QT Int : 386 ms P-R-T Axes : 58 -3 20 degrees QTcB Int : 440 ms Normal sinus rhythm Minimal voltage criteria for LVH, may be normal variant ( R in aVL ) Inferior infarct , age undetermined Abnormal ECG When compared with ECG of 29-Jul-2023 23:56, Inferior infarct is now Present Referred By: Damaris Carroll Electronically Signed By: Cash Dahl
[2025-06-23 16:30] VITALS: BP 142/99; BP 149/100; PULSE 76; PULSE 80; RESP 20; TEMP 36.8; O2SAT 100; O2SAT 98; BMI 51.0
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
[2025-06-23 16:36] VITALS: BP 142/99; PULSE 80; RESP 20; TEMP 36.8; O2SAT 98
[2025-06-23 17:08] LABS: MANUAL DIFF FLAG NO
[2025-06-23 17:10] LABS: Hematocrit 50.3 % (42.0-52.0); Hemoglobin 16.2 g/dl (14.0-18.0); Imm Gran Abs Auto 0.03 X10*3/uL (0.00-0.03); Imm Gran Pct Auto 0.2 % (0.0-0.4); Lymphocytes Absolute Auto 4.1 X10*3/uL (1.2-4.9); Mean Corpuscular HGB Conc 32.2 g/dl (31.0-36.0); Mean Corpuscular Hemoglobin 28.9 pg (27.0-33.0); Mean Corpuscular Volume 89.7 fL (80.0-98.0); NRBC Abs Auto 0.000 X10*3/uL (0.0-0.012); NRBC Pct Auto 0.0 /100WBC (0.0-0.2); Platelet Count 342 X10*3/uL (160-400); Red Blood Count 5.61 X10*6/uL (4.60-5.80); White Blood Count 12.3 X10*3/uL (4.8-10.8)
[2025-06-23 17:13] LABS: Venous Blood Gas Refer to POC result
[2025-06-23 17:14] LABS: VBG HCO3 32 mmol/L (22-26); VBG O2 % Saturation 53.0 %
[2025-06-23 17:26] LABS: Alanine Aminotransferase 33 U/L (0-40); Albumin Level 4.6 g/dL (3.5-5.0); Alkaline Phosphatase 103 U/L (39-117); Anion Gap 14 (12-20); Aspartate Amino Transferase 27 U/L (5-37); Blood Urea Nitrogen 11 mg/dL (9-16); Calcium 9.5 mg/dL (8.4-10.2); Carbon Dioxide 27 mmol/L (22-29); Chloride 104 mmol/L (96-108); Creatinine Clr Calc Pharmacy 167.5; Estimated Glomerular Filt Rate > 60; Lipase 55 U/L (8-78); Potassium 3.7 mmol/L (3.3-5.1); Sodium 141 mmol/L (135-145); Total Protein 8.9 g/dL (6.5-8.0)
[2025-06-23 17:27] LABS: Appearance Urine Cloudy; Glucose Urine UA Negative (Negative); PH 7.0 (5.0-9.0); Specific Gravity - Urine 1.020 (1.005-1.025); UMIC TRIGGER UACC YES
[2025-06-23] MEDS: Lactated Ringers 1,000 ML 999 ML IV (17:30)
[2025-06-23 17:33] LABS: Troponin-I High Sensitivity 2.9 ng/L (<3.5-35.0)
[2025-06-23 17:39] LABS: INTERNATIONAL NORM RATIO 1.0 (0.9-1.1); Prothrombin Time 12.5 SEC (11.2-13.5)
[2025-06-23 17:55] LABS: Resp Syncy Virus RNA Qual PCR NEGATIVE (Negative); SARS COV2 PCR INHOUSE NEGATIVE (Negative)
[2025-06-23 17:59] LABS: Other Crystals Urine Present
[2025-06-23 19:23] LABS: Cannabinoid Screen Urine Not Detected (Not Detect)
--- NOTE | 2025-06-23 19:23 | PM.IMHP ---
History of Present Illness Date of Service: 06/23/25 Chief Complaint: unresponsive epsiode 45-year-old male with a past medical history of HTN, HLD, dm, TBI, LETA on CPAP; presented to the hospital today with a chief complaint of brief unresponsive episode. Patient has time of my interview is alert and awake; questions appropriately. Family member at the bedside said patient back to his baseline. Reportedly patient was sleeping and the family tried to wake him up he was not responding subsequently ambulance was called and brought him to the hospital. Patient denies any chest pain or palpitation Denies any lightheadedness or dizziness Denies any GI or symptoms. Review of all other systems is negative except mentioned above ER course: Per ER team, patient's exam was nonfocal; patient was alert and awake; labs essentially benign; EKG nonischemic; troponins negative; [facility] Medical History Morbid (severe) obesity due to excess calories HTN (hypertension) DMII (diabetes mellitus, type 2) TBI (traumatic brain injury) Severe recurrent major depression Family History Maternal Grandfather Cancer of unknown origin Father Prostate cancer Surgical History H/O left knee surgery H/O splenectomy Social History Household Members: Family Household Members Other:: Sister Housing: House Do you presently have visiting nurse or other home services: No Alcohol intake: former Comment: pt low fall risk Patient Tobacco Use Status: Never used Tobacco Smoked in Last 30 Days: No e-Cigarette/Vaping Use: Never Used Second Hand Smoke Exposure: No Use of substances other than those prescribed or required for medical reasons: No Substance Use Type: Caffiene Advance Directives: Yes Advance Directives on File: Yes Advance Directives Date on File: 03/14/24 Do you have a plan to hurt others: No Plan service: No Sexual orientation: Straight/Heterosexual Meds Allergies Allergy/AdvReac Type Severity Reaction Status Date / Time No Known Allergies Allergy Verified 06/23/25 16:34 Home Medications ?Medication ?Instructions ?Recorded ?Confirmed ?Last Taken ?Type lisinopril 20 mg tablet 1 tab PO DAILY 03/04/22 07/30/23 07/29/23 History 20 mg metformin 500 mg tablet 1 tab PO DAILY 03/04/22 07/30/23 07/29/23 History metformin 500 mg tablet 500 mg PO BID 03/14/24 03/14/24 Unknown History Physical Exam Vital Signs and Narrative: Vital Signs: Last Vital Signs Temp 98.3 F 06/23/25 16:36 Pulse 80 06/23/25 16:36 Resp 20 06/23/25 16:36 BP 142/99 H 06/23/25 16:36 Pulse Ox 98 06/23/25 16:36 O2 Del Method Room Air 06/23/25 16:36 BMI result Body Mass Index 51.0 Gen: Appears be in no acute distress HEENT: NCAT, Moist mucosa. Pulmonary: Vesicular breath sounds, fair air entry CVS: Normal S1-S2 Abdomen: BS+, Soft, Nontender Extremities: Warm well perfused Neuro: Alert and awake. Results Labs 06/24/25 03:38 06/23/25 17:02 Labs: Laboratory Results - last 24 hr 06/23/25 06/23/25 06/23/25 17:02 17:07 17:09 MCV 89.7 MCH 28.9 MCHC 32.2 RDW 13.8 Plt Count 342 MPV 11.2 Immature Gran % (Auto) 0.2 Neut % (Auto) 53.2 Lymph % (Auto) 33.1 [place] % (Auto) 8.5 Eos % (Auto) 4.3 H Baso % (Auto) 0.7 Lymph # (Auto) 4.1 [place] # (Auto) 1.0 Eos # (Auto) 0.5 H Baso # (Auto) 0.1 Abs Immat Gran (auto) 0.03 Absolute Neuts (auto) 6.5 Absolute Nucleated RBC 0.000 Nucleated RBC % (auto) 0.0 PT INR VBG pH 7.36 VBG pCO2 55 VBG pO2 34 VBG HCO3 32 H VBG O2 Saturation 53.0 VBG Base Excess 5.1 Anion Gap 14 Estim Creat Clear Calc 167.5 Estimated GFR > 60 Random Glucose 89 Lactic Acid 1.3 Calcium 9.5 Total Bilirubin 0.4 Direct Bilirubin 0.1 AST 27 ALT 33 Alkaline Phosphatase 103 Troponin I High Sens 2.9 Total Protein 8.9 H Albumin 4.6 Lipase 55 Urine Color Yellow Urine Appearance Cloudy Urine pH 7.0 Ur Specific [place] 1.020 Urine Protein Negative Urine Glucose (UA) Negative Urine Ketones Negative Urine Blood Negative Urine Nitrite Negative Ur Leukocyte Esterase Trace H Urine RBC 0-2 Urine WBC 0-5 Ur Squamous Epith Cells 0-2 Calcium Oxalate Crystal Present Other Crystals Present Urine Bacteria None Seen Hyaline Casts 0-2 Influenza Type A (PCR) NEGATIVE Influenza Type B (PCR) NEGATIVE RSV RNA Qual (PCR) NEGATIVE SARS-CoV-2 RNA (RT-PCR) NEGATIVE 06/23/25 17:28 MCV MCH MCHC RDW Plt Count MPV Immature Gran % (Auto) Neut % (Auto) Lymph % (Auto) [place] % (Auto) Eos % (Auto) Baso % (Auto) Lymph # (Auto) [place] # (Auto) Eos # (Auto) Baso # (Auto) Abs Immat Gran (auto) Absolute Neuts (auto) Absolute Nucleated RBC Nucleated RBC % (auto) PT 12.5 INR 1.0 VBG pH VBG pCO2 VBG pO2 VBG HCO3 VBG O2 Saturation VBG Base Excess Anion Gap Estim Creat Clear Calc Estimated GFR Random Glucose Lactic Acid Calcium Total Bilirubin Direct Bilirubin AST ALT Alkaline Phosphatase Troponin I High Sens Total Protein Albumin Lipase Urine Color Urine Appearance Urine pH Ur Specific [place] Urine Protein Urine Glucose (UA) Urine Ketones Urine Blood Urine Nitrite Ur Leukocyte Esterase Urine RBC Urine WBC Ur Squamous Epith Cells Calcium Oxalate Crystal Other Crystals Urine Bacteria Hyaline Casts Influenza Type A (PCR) Influenza Type B (PCR) RSV RNA Qual (PCR) SARS-CoV-2 RNA (RT-PCR) Assessment and Plan (1) Episode of unresponsiveness: Status: Acute Plan 45-year-old male with a past medical history of HTN, HLD, dm, TBI, LETA on CPAP; presented to the hospital today with a chief complaint of brief unresponsive episode. Brief unresponsive episode: Patient currently back to his baseline CT head showed no acute findings Exam grossly nonfocal Orthostatic vitals Telemetry Echocardiogram Holter at the time of discharge Hypertension: Hold home antihypertensives for now Diabetes: Insulin sliding scale DVT prophylaxis: Lovenox Code status: Full code Quality Stroke Does the patient have a stroke diagnosis?: No VTE Prior VTE?: No VTE Risk Level:: Medical - moderate - high VTE Device Contraindication: Treatment Not Indicated VTE Drug Contraindication: N/A - Med Ordered
[2025-06-23] MEDS: Lactated Ringers 1,000 ML 100 ML IVCONT (19:52)
--- NOTE | 2025-06-23 19:52 | PC.NURSE ---
this rn assumed care of pt, pt sitting up in bed, offers no complaints at this time, vss. pt medicated per oct, iv fluids administering
[2025-06-23 20:12] VITALS: BP 168/79; PULSE 81; RESP 16; TEMP 36.9; O2SAT 97
[2025-06-23 22:07] LABS: Glucose, Whole Blood 196 mg/dL (60-115)
[2025-06-23 22:48] VITALS: BMI 51.2
[2025-06-23 23:02] VITALS: BP 178/100; PULSE 84; RESP 22; TEMP 36.4; O2SAT 95
[2025-06-23 23:03] VITALS: BP 178/100; PULSE 84; RESP 22; TEMP 36.4; O2SAT 95
[2025-06-23 23:49] VITALS: BP 140/89; PULSE 74; RESP 18; TEMP 36.4; O2SAT 96
[2025-06-24] VITALS (10 sets, daily range): BP systolic 140–219; BP diastolic 68–132; PULSE 69–91; RESP 16–18; TEMP 36.2–37.1; O2SAT 94–96
--- NOTE | 2025-06-24 | EEG_ITS ---
Reason for Exam: Episode of unresponsiveness History:H/O HTN, HLD, dm, TBI, LETA on CPAP; presented to the hospital today with a chief complaint of brief unresponsive episode- no other details of event is available at this time Medication: lisinopril, metformin Technical description: Photic stimulation: Completed Hyperventilation: Omitted Behavioral state: alert, awake answers questions appropriately family states pt is at baseline. State of Consciousness: awake Sedation:no Duration of study:26 min 40 sec Description: This is a 16 channel EEG with an EKG lead. Patient is reported awake during the tracing. Background EEG rhythm is almost continuously contaminated by muscle artifacts. It seems to be low amplitude fast with no obvious asymmetry or paroxysmal tendency. Photic stimulation does not produce any significant driving. Hyperventilation is not performed. Cardiac lead did not reveal any significant abnormality. No obvious paroxysmal activity, asymmetry, sharp waves or spikes were noted. Impression: Limited EEG because of movement artifacts but no obvious epileptic discharges noted. MTDD
[2025-06-24 04:15] LABS: MANUAL DIFF FLAG NO
[2025-06-24 04:19] LABS: Hematocrit 42.1 % (42.0-52.0); Hemoglobin 13.7 g/dl (14.0-18.0); Imm Gran Abs Auto 0.03 X10*3/uL (0.00-0.03); Imm Gran Pct Auto 0.3 % (0.0-0.4); Lymphocytes Absolute Auto 3.6 X10*3/uL (1.2-4.9); Mean Corpuscular HGB Conc 32.5 g/dl (31.0-36.0); Mean Corpuscular Hemoglobin 29.1 pg (27.0-33.0); Mean Corpuscular Volume 89.4 fL (80.0-98.0); NRBC Abs Auto 0.000 X10*3/uL (0.0-0.012); NRBC Pct Auto 0.0 /100WBC (0.0-0.2); Platelet Count 313 X10*3/uL (160-400); Red Blood Count 4.71 X10*6/uL (4.60-5.80); White Blood Count 9.6 X10*3/uL (4.8-10.8)
[2025-06-24] MEDS: Lactated Ringers 1,000 ML 100 ML IVCONT (04:25)
[2025-06-24 04:45] LABS: Alanine Aminotransferase 24 U/L (0-40); Albumin Level 3.4 g/dL (3.5-5.0); Alkaline Phosphatase 79 U/L (39-117); Anion Gap 11 (12-20); Aspartate Amino Transferase 25 U/L (5-37); Blood Urea Nitrogen 12 mg/dL (9-16); Calcium 8.5 mg/dL (8.4-10.2); Carbon Dioxide 26 mmol/L (22-29); Chloride 107 mmol/L (96-108); Creatinine Clr Calc Pharmacy 195.1; Estimated Glomerular Filt Rate > 60; Potassium 3.4 mmol/L (3.3-5.1); Sodium 141 mmol/L (135-145); Total Protein 6.6 g/dL (6.5-8.0)
[2025-06-24 07:57] LABS: Glucose, Whole Blood 139 mg/dL (60-115)
[2025-06-24] MEDS: 0.9 % Sodium Chloride Flush 3 ML SYRINGE IVFLUSH (09:47)
--- NOTE | 2025-06-24 10:12 | PHA.MEDREC ---
Pharmacy Consult ? Medication Reconciliation Pharmacy has completed the medication reconciliation. Spoke to patient at bedside, antoine historian. Said he is supposed to be on metformin, a blood pressure medication, and a third one he did not know what it was or its indication. Noted he picks up at [facility]. Called [facility], he has not picked up anything since 2023. Noted he has not taken anything in over a month. Will notify provider.
--- NOTE | 2025-06-24 10:48 | HO.PM.IMPN ---
Subjective Subjective Date of Service: 06/24/25 Interval History: feels back to [facility], but very hypertensive Physical Exam Exam: Exam: General: AO X 3, no acute distress Resp: CTA bilateral, no accessory muscles used CVS: S1,S2,RRR GI: soft, non tender, non distended Neuro: motor grossly intact, alert, expressive aphasia Psych: appropriate affect, appropriate insight Vital Signs: Vital Signs: Last Vital Signs Temp 97.1 F 06/24/25 08:00 Pulse 84 06/24/25 08:17 Resp 16 06/24/25 08:00 BP 219/132 H 06/24/25 08:17 Pulse Ox 96 06/24/25 08:00 O2 Del Method Room Air 06/24/25 08:00 BMI result Body Mass Index 51.2 Objective Data Active Medications Acetaminophen (Acetaminophen 325 Mg Tablet) 650 mg PO Q6H PRN PRN Reason: Pain, Mild 1-3,fever,headache Amlodipine Besylate (Amlodipine Besylate 10 Mg Tablet) 10 mg PO DAILY [facility]; Protocol Last Admin: 06/24/25 09:47 Dose: 10 mg Documented By: RAIZA Calcium Carbonate (Calcium Carbonate 750 Mg Tab.Chew) 750 mg PO Q4H PRN PRN Reason: Heartburn Dextrose (Dextrose 50 % 25 Gm/50 Ml Syringe) 25 gm IVPUSH Q15M PRN; Protocol PRN Reason: per Hypoglycemia Standing Ord. Enoxaparin Sodium (Enoxaparin Sodium 40 Mg/0.4 Ml Syringe) 40 mg SUBCUT Q24H [facility] Last Admin: 06/23/25 19:51 Dose: 40 mg Documented By: GORDY Glucose (Glucose Gel 15 Gm Gel..Gram.) 15 gm PO Q15M PRN; Protocol PRN Reason: per Hypoglycemia Standing Ord. Insulin Human Lispro (Insulin Lispro 100 Unit/Ml 3 Ml Vial) 0 unit SUBCUT QIDACHS [facility]; Protocol Last Admin: 06/24/25 07:55 Dose: Not Given Documented By: RAIZA Non-Admin Reason: No Insulin Coverage Magnesium Hydroxide (Milk Of Magnesia 30 Ml Oral.Susp) 30 ml PO DAILY PRN PRN Reason: Constipation Melatonin (Melatonin 3 Mg Tablet) 6 mg PO BEDTIME PRN PRN Reason: Insomnia Sodium Chloride (0.9 % Sodium Chloride Flush 3 Ml Syringe) 3 ml IVFLUSH QSHIFT [facility] Last Admin: 06/24/25 09:47 Dose: 3 ml Documented By: RAIZA Valsartan (Valsartan 80 Mg Tablet) 80 mg PO BID [facility]; Protocol Last Admin: 06/24/25 09:47 Dose: 80 mg Documented By: RAIZA Labs 06/24/25 03:38 06/24/25 03:38 Labs: Laboratory Results - last 24 hr 06/23/25 06/23/25 06/23/25 17:02 17:07 17:09 MCV 89.7 MCH 28.9 MCHC 32.2 RDW 13.8 Plt Count 342 MPV 11.2 Immature Gran % (Auto) 0.2 Neut % (Auto) 53.2 Lymph % (Auto) 33.1 Pratt % (Auto) 8.5 Eos % (Auto) 4.3 H Baso % (Auto) 0.7 Lymph # (Auto) 4.1 Pratt # (Auto) 1.0 Eos # (Auto) 0.5 H Baso # (Auto) 0.1 Abs Immat Gran (auto) 0.03 Absolute Neuts (auto) 6.5 Absolute Nucleated RBC 0.000 Nucleated RBC % (auto) 0.0 PT INR VBG pH 7.36 VBG pCO2 55 VBG pO2 34 VBG HCO3 32 H VBG O2 Saturation 53.0 VBG Base Excess 5.1 Anion Gap 14 Estim Creat Clear Calc 167.5 Estimated GFR > 60 POC Glucose Random Glucose 89 Lactic Acid 1.3 Calcium 9.5 Total Bilirubin 0.4 Direct Bilirubin 0.1 AST 27 ALT 33 Alkaline Phosphatase 103 Troponin I High Sens 2.9 Total Protein 8.9 H Albumin 4.6 Lipase 55 Urine Color Yellow Urine Appearance Cloudy Urine pH 7.0 Ur Specific [place] 1.020 Urine Protein Negative Urine Glucose (UA) Negative Urine Ketones Negative Urine Blood Negative Urine Nitrite Negative Ur Leukocyte Esterase Trace H Urine RBC 0-2 Urine WBC 0-5 Ur Squamous Epith Cells 0-2 Calcium Oxalate Crystal Present Other Crystals Present Urine Bacteria None Seen Hyaline Casts 0-2 Urine Opiates Screen Not Detected Ur Buprenorphine Scrn Not Detected Ur Oxycodone Screen Not Detected Urine Methadone Screen Not Detected Urine Fentanyl Screen Not Detected Ur Barbiturates Screen Not Detected Ur Phencyclidine Scrn Not Detected Ur Amphetamines Screen Not Detected U Benzodiazepines Scrn Not Detected Urine Cocaine Screen Not Detected U Marijuana (THC) Screen Not Detected Influenza Type A (PCR) NEGATIVE Influenza Type B (PCR) NEGATIVE RSV RNA Qual (PCR) NEGATIVE SARS-CoV-2 RNA (RT-PCR) NEGATIVE 06/23/25 06/23/25 06/24/25 17:28 22:03 03:38 MCV 89.4 MCH 29.1 MCHC 32.5 RDW 13.9 Plt Count 313 MPV 11.5 Immature Gran % (Auto) 0.3 Neut % (Auto) 47.1 Lymph % (Auto) 37.4 Pratt % (Auto) 9.8 Eos % (Auto) 4.9 H Baso % (Auto) 0.5 Lymph # (Auto) 3.6 Pratt # (Auto) 0.9 Eos # (Auto) 0.5 H Baso # (Auto) 0.1 Abs Immat Gran (auto) 0.03 Absolute Neuts (auto) 4.5 Absolute Nucleated RBC 0.000 Nucleated RBC % (auto) 0.0 PT 12.5 INR 1.0 VBG pH VBG pCO2 VBG pO2 VBG HCO3 VBG O2 Saturation VBG Base Excess Anion Gap 11 L Estim Creat Clear Calc 195.1 Estimated GFR > 60 POC Glucose 196 H Random Glucose 126 H Lactic Acid Calcium 8.5 D Total Bilirubin 0.4 Direct Bilirubin AST 25 ALT 24 Alkaline Phosphatase 79 Troponin I High Sens Total Protein 6.6 Albumin 3.4 L Lipase Urine Color Urine Appearance Urine pH Ur Specific [place] Urine Protein Urine Glucose (UA) Urine Ketones Urine Blood Urine Nitrite Ur Leukocyte Esterase Urine RBC Urine WBC Ur Squamous Epith Cells Calcium Oxalate Crystal Other Crystals Urine Bacteria Hyaline Casts Urine Opiates Screen Ur Buprenorphine Scrn Ur Oxycodone Screen Urine Methadone Screen Urine Fentanyl Screen Ur Barbiturates Screen Ur Phencyclidine Scrn Ur Amphetamines Screen U Benzodiazepines Scrn Urine Cocaine Screen U Marijuana (THC) Screen Influenza Type A (PCR) Influenza Type B (PCR) RSV RNA Qual (PCR) SARS-CoV-2 RNA (RT-PCR) 06/24/25 07:52 MCV MCH MCHC RDW Plt Count MPV Immature Gran % (Auto) Neut % (Auto) Lymph % (Auto) Pratt % (Auto) Eos % (Auto) Baso % (Auto) Lymph # (Auto) Pratt # (Auto) Eos # (Auto) Baso # (Auto) Abs Immat Gran (auto) Absolute Neuts (auto) Absolute Nucleated RBC Nucleated RBC % (auto) PT INR VBG pH VBG pCO2 VBG pO2 VBG HCO3 VBG O2 Saturation VBG Base Excess Anion Gap Estim Creat Clear Calc Estimated GFR POC Glucose 139 H Random Glucose Lactic Acid Calcium Total Bilirubin Direct Bilirubin AST ALT Alkaline Phosphatase Troponin I High Sens Total Protein Albumin Lipase Urine Color Urine Appearance Urine pH Ur Specific [place] Urine Protein Urine Glucose (UA) Urine Ketones Urine Blood Urine Nitrite Ur Leukocyte Esterase Urine RBC Urine WBC Ur Squamous Epith Cells Calcium Oxalate Crystal Other Crystals Urine Bacteria Hyaline Casts Urine Opiates Screen Ur Buprenorphine Scrn Ur Oxycodone Screen Urine Methadone Screen Urine Fentanyl Screen Ur Barbiturates Screen Ur Phencyclidine Scrn Ur Amphetamines Screen U Benzodiazepines Scrn Urine Cocaine Screen U Marijuana (THC) Screen Influenza Type A (PCR) Influenza Type B (PCR) RSV RNA Qual (PCR) SARS-CoV-2 RNA (RT-PCR) Assessment and Plan (1) LETA on CPAP: Status: Acute Plan 45M PMH TBI, LETA on CPAP, hypertension, hyperlipidemia, diabetes noncompliant with medications presented with altered mental status Acute toxic metabolic encephalopathy Possibly due to uncontrolled hypertension versus seizure disorder versus arrhythmia Follow up echo, tele, EKG Uncontrolled hypertension Starting amlodipine and valsartan, monitor Morbid obesity Weight loss recommended LETA CPAP at night Diabetes Insulin sliding scale DVT prophylaxis-Lovenox Full code reason for continued hospitalization: Needs better pulmonic pressure control Quality Stroke Does the patient have a stroke diagnosis?: No VTE Prior VTE?: No VTE Risk Level:: Medical - moderate - high VTE Device Contraindication: Treatment Not Indicated VTE Drug Contraindication: N/A - Med Ordered
[2025-06-24 11:33] LABS: Glucose, Whole Blood 149 mg/dL (60-115)
[2025-06-24 17:01] LABS: Glucose, Whole Blood 107 mg/dL (60-115)
[2025-06-24 21:34] LABS: Glucose, Whole Blood 141 mg/dL (60-115)
[2025-06-25] VITALS (12 sets, daily range): BP systolic 147–193; BP diastolic 78–114; PULSE 73–94; RESP 14–18; TEMP 36–36.4; O2SAT 94–97
[2025-06-25] MEDS: 0.9 % Sodium Chloride Flush 3 ML SYRINGE IVFLUSH ×4 (00:22→20:23)
[2025-06-25 06:36] LABS: Hematocrit 47.1 % (42.0-52.0); Hemoglobin 15.1 g/dl (14.0-18.0); Mean Corpuscular HGB Conc 32.1 g/dl (31.0-36.0); Mean Corpuscular Hemoglobin 28.9 pg (27.0-33.0); Mean Corpuscular Volume 90.1 fL (80.0-98.0); NRBC Abs Auto 0.000 X10*3/uL (0.0-0.012); NRBC Pct Auto 0.0 /100WBC (0.0-0.2); Platelet Count 333 X10*3/uL (160-400); Red Blood Count 5.23 X10*6/uL (4.60-5.80); White Blood Count 9.6 X10*3/uL (4.8-10.8)
[2025-06-25 06:52] LABS: Anion Gap 12 (12-20); Blood Urea Nitrogen 11 mg/dL (9-16); Calcium 9.3 mg/dL (8.4-10.2); Carbon Dioxide 27 mmol/L (22-29); Chloride 105 mmol/L (96-108); Creatinine Clr Calc Pharmacy 190.0; Estimated Glomerular Filt Rate > 60; Magnesium 2.3 mg/dL (1.6-2.6); Potassium 3.7 mmol/L (3.3-5.1); Sodium 140 mmol/L (135-145)
--- NOTE | 2025-06-25 07:00 | CA_ITS ---
Transthoracic Echocardiogram Patient (Last, First, Middle): Adam Lorenz, Gender: M Date of : 1980 Age: 45 Procedure Date: 06/25/2025 Procedure Type: Transthoracic Echocardiogram Location: S3E Height: 180.34 cm Weight: 166.47 kg BSA: 2.73 m2 Heart Rate: 69 bpm BP: 148 / 84 mmHg Manager Hospice: [facility] Referring MD: Turner Collado MD [employer] Manager: Nilay Magallon MD Symptoms: unresponsive episode Study Quality: Adequate w/Contrast ECG Rhythm: Sinus Conclusions: - 1. Normal LV ejection fraction of 60-65% with mild LVH with moderate asymmetric septal hypertrophy 2. Mildly dilated left atrium 3. Normal cardiac valvular Dopplers 4. Upper limits of normal ascending aortic size Findings Procedure Information Contrast agent, definity, is being given per protocol without apparent complications. Left Ventricle Normal left ventricular size and systolic function. There is mildly increased left ventricular wall thickness. The visually estimated ejection fraction is between 60-65%. Spectral Doppler is indicative of a normal filling pattern. There is moderate septal asymmetric hypertrophy. Right Ventricle Normal right ventricular cavity size and systolic function. Atria The left atrium is mildly dilated. The right atrium is normal in size. Aortic Valve The aortic valve was not well visualized. There is no aortic valve stenosis. There is no aortic valve regurgitation. Mitral Valve The mitral valve was not well visualized. There is no mitral valve regurgitation. There is no mitral valve stenosis. Pulmonic Valve The pulmonic valve was not well visualized. Tricuspid Valve The tricuspid valve was not well visualized. There is trace tricuspid valve regurgitation. Tricuspid regurgitation envelope is inadequate for calculation of right ventricular systolic pressure. Normal right atrial pressure. Great Vessels The pulmonary artery was not well visualized. Venous The inferior vena cava is normal in size and collapses greater than 50% with inspiration. Pericardium/Pleural The pericardium was not well visualized. Prior Study Comparison No prior study available for comparison. Measurements 2D Linear Measurements IVSd: 1.54 0.6-0.9/0.6-1.0 cm LVIDd: 4.97 3.9-5.3/4.2-5.9 cm LVIDd Index: 1.82 2.4-3.2/2.2-3.1 cm/m2 LVIDs: 2.94 2.0-3.6 cm LVPWd: 1.26 0.7-1.1 cm LA Diam: 4.10 2.7-3.8/3.0-4.0 cm LAIDs Index: 1.50 1.5-2.3 cm/m2 LV Mass: 360.19 67-162/88-224 g LV Mass Index: 131.94 43-95/49-115 g/m2 LVOT Diam: 2.20 3.0+(-)1.3 cm 2D Systolic Function EF 4C: 59.20 >55% EF 2C: 65.70 >55% EF BiP: 60.80 >55% Mitral Valve MV Pk E: 0.93 MV PK A: 0.88 MV Decel Time: 272.00 E/A: 1.10 E'Lateral: 10.30 E'Medial: 8.70 E/E' Med: 10.70 E/E' Lat: 9.00 PHT: 80.00 MVA PHT: 2.75 Decel [place]: 3.41 Aortic Valve AoV Pk Chriss: 1.49 AoV Mn Chriss: 1.12 AoV VTI: 0.34 AoV Pk Grad: 9.00 Aov Mn Grad: 5.00 SANDY Cont.VTI: 2.97 LVOT LVOT Pk Chriss: 1.23 LVOT Mn Chriss: 0.88 LVOT VTI: 0.26 LVOT Pk Grad: 6.00 LVOT Mn Grad: 3.00 LVOT Diam: 2.20 LVOT Area: 3.80 Diastolic Function MV Pk E: 0.93 MV Pk A: 0.88 E/A: 1.10 E'Medial: 8.70 E/E' Med: 10.70 E' Laterial: 10.30 E/E' Lat: 9.00 Right Ventricle TAPSE (mm): 24.20 TVS' Chriss: 12.90 Tricuspid Valve RA Press: 3.00 Great Vessels Aorta Sinus of Valsalva: 3.74 2.0-3.[address] [place]: 2.99 1.7-3.4 cm Ao Asc: 3.60 2.1-3.4 cm Pulmonary Veins Pulm Vein S/D 1.00 Updated in Other Vendor System with Status of Final Nilay Magallon MD electronically signed on 06/25/2025 4:05:21 PM with status of Final
[2025-06-25 07:58] LABS: Glucose, Whole Blood 108 mg/dL (60-115)
--- NOTE | 2025-06-25 08:09 | HO.PM.IMPN ---
Subjective Subjective Date of Service: 06/25/25 Interval History: episode of unresponsiveness Physical Exam Exam: Exam: General: AO X 3, no acute distress Resp: CTA bilateral, no accessory muscles used CVS: S1,S2,RRR GI: soft, non tender, non distended Neuro: motor grossly intact, alert, expressive aphasia Psych: appropriate affect, appropriate insight Vital Signs: Vital Signs: Last Vital Signs Temp 97.0 F 06/25/25 07:50 Pulse 74 06/25/25 07:50 Resp 16 06/25/25 07:50 BP 184/101 H 06/25/25 07:50 Pulse Ox 96 06/25/25 07:50 O2 Del Method Room Air 06/25/25 07:50 BMI result Body Mass Index 51.2 Objective Data Active Medications Acetaminophen (Acetaminophen 325 Mg Tablet) 650 mg PO Q6H PRN PRN Reason: Pain, Mild 1-3,fever,headache Amlodipine Besylate (Amlodipine Besylate 10 Mg Tablet) 10 mg PO DAILY [facility]; Protocol Last Admin: 06/24/25 09:47 Dose: 10 mg Documented By: RAIZA Calcium Carbonate (Calcium Carbonate 750 Mg Tab.Chew) 750 mg PO Q4H PRN PRN Reason: Heartburn Dextrose (Dextrose 50 % 25 Gm/50 Ml Syringe) 25 gm IVPUSH Q15M PRN; Protocol PRN Reason: per Hypoglycemia Standing Ord. Enoxaparin Sodium (Enoxaparin Sodium 40 Mg/0.4 Ml Syringe) 40 mg SUBCUT Q24H [facility] Last Admin: 06/24/25 19:57 Dose: 40 mg Documented By: ROLDAN Glucose (Glucose Gel 15 Gm Gel..Gram.) 15 gm PO Q15M PRN; Protocol PRN Reason: per Hypoglycemia Standing Ord. Insulin Human Lispro (Insulin Lispro 100 Unit/Ml 3 Ml Vial) 0 unit SUBCUT QIDACHS [facility]; Protocol Last Admin: 06/24/25 21:27 Dose: Not Given Documented By: ROLDAN Non-Admin Reason: assessed, no action needed Magnesium Hydroxide (Milk Of Magnesia 30 Ml Oral.Susp) 30 ml PO DAILY PRN PRN Reason: Constipation Melatonin (Melatonin 3 Mg Tablet) 6 mg PO BEDTIME PRN PRN Reason: Insomnia Sodium Chloride (0.9 % Sodium Chloride Flush 3 Ml Syringe) 3 ml IVFLUSH QSHIFT [facility] Last Admin: 06/25/25 00:22 Dose: 3 ml Documented By: ROLDAN Valsartan (Valsartan 80 Mg Tablet) 80 mg PO BID [facility]; Protocol Last Admin: 06/24/25 19:56 Dose: 80 mg Documented By: ROLDAN Labs 06/25/25 06:16 06/25/25 06:16 Labs: Laboratory Results - last 24 hr 06/24/25 06/24/25 06/24/25 11:21 16:46 21:01 MCV MCH MCHC RDW Plt Count MPV Absolute Nucleated RBC Nucleated RBC % (auto) Anion Gap Estim Creat Clear Calc Estimated GFR POC Glucose 149 H 107 141 H Random Glucose Calcium Magnesium 06/25/25 06/25/25 06:16 07:53 MCV 90.1 MCH 28.9 MCHC 32.1 RDW 13.7 Plt Count 333 MPV 11.3 Absolute Nucleated RBC 0.000 Nucleated RBC % (auto) 0.0 Anion Gap 12 Estim Creat Clear Calc 190.0 Estimated GFR > 60 POC Glucose 108 Random Glucose 109 Calcium 9.3 D Magnesium 2.3 Microbiology Microbiology Results: Microbiology 06/23/25 17:28 Blood Culture - Preliminary Blood - Venous No growth after 24 hours. 06/23/25 17:08 Blood Culture - Preliminary Blood - Venous No growth after 24 hours. Assessment and Plan (1) LETA on CPAP: Status: Acute Plan 45M PMH TBI, LETA on CPAP, hypertension, hyperlipidemia, diabetes noncompliant with medications presented with altered mental status Acute toxic metabolic encephalopathy Possibly due to uncontrolled hypertension versus seizure disorder versus arrhythmia Follow up echo, tele - no events, EKG Uncontrolled hypertension Started amlodipine and valsartan, monitor Morbid obesity Weight loss recommended LETA CPAP at night Diabetes Insulin sliding scale DVT prophylaxis-Lovenox Full code reason for continued hospitalization: Needs better pulmonic pressure control, awaiting eeg, echo Quality Stroke Does the patient have a stroke diagnosis?: No VTE Prior VTE?: No VTE Risk Level:: Medical - moderate - high VTE Device Contraindication: Treatment Not Indicated VTE Drug Contraindication: N/A - Med Ordered
--- NOTE | 2025-06-25 11:14 | MHC.CM.PN ---
PT LIVES WITH FAMILY IS INDEPEDET HAS NO SERVICES PCP LIST GIVEN TO PT PT MAY HAVE OWN RIDE HOME DC PLAN HOME
[2025-06-25 11:41] LABS: Glucose, Whole Blood 174 mg/dL (60-115)
[2025-06-25 16:30] LABS: Glucose, Whole Blood 114 mg/dL (60-115)
[2025-06-25 20:08] LABS: Glucose, Whole Blood 128 mg/dL (60-115)
[2025-06-26] VITALS: BP 165/80; PULSE 76; RESP 18; TEMP 36.6; O2SAT 96
[2025-06-26 03:59] VITALS: BP 143/81; PULSE 63; RESP 18; TEMP 36.4; O2SAT 94
[2025-06-26 07:37] LABS: Glucose, Whole Blood 102 mg/dL (60-115)
[2025-06-26 08:29] VITALS: BP 153/80; BP 159/79; PULSE 75; PULSE 85
[2025-06-26 08:30] VITALS: BP 157/79; PULSE 93; TEMP 37
[2025-06-26] MEDS: 0.9 % Sodium Chloride Flush 3 ML SYRINGE IVFLUSH (08:52)
--- NOTE | 2025-06-26 09:21 | P.DS_ITS ---
DS: Providers Provider Date of Service: 06/26/25 Date of admission: 06/23/25 19:30 Date of discharge: 06/26/25 Primary care physician: Unknown Physician DS: Diagnosis Discharge Diagnosis (1) LETA on CPAP: Status: Acute DS: Summary Hospital Course Hospital Course: from initial hpi: 45-year-old male with a past medical history of HTN, HLD, dm, TBI, LETA on CPAP; presented to the hospital today with a chief complaint of brief unresponsive episode. Patient has time of my interview is alert and awake; questions appropriately. Family member at the bedside said patient back to his baseline. Reportedly patient was sleeping and the family tried to wake him up he was not responding subsequently ambulance was called and brought him to the hospital. Patient denies any chest pain or palpitation Denies any lightheadedness or dizziness Denies any GI or symptoms. Review of all other systems is negative except mentioned above ER course: Per ER team, patient's exam was nonfocal; patient was alert and awake; labs essentially benign; EKG nonischemic; troponins negative; hospital course: Patient was admitted for acute toxic metabolic encephalopathy possibly due to uncontrolled hypertension, LETA noncompliant with CPAP. Was monitored on telemetry and did not have any events. Echocardiogram was unremarkable. EEG was done and should be followed up outpatient. For uncontrolled hypertension was started on amlodipine and valsartan with improvement. For morbid obesity weight loss recommended. For diabetes was continued insulin sliding scale. Patient will be discharged home. Time Attestation Discharge Coordination Time (in mins): 33 Quality: Safe Use of Opioids Does Pt have an Active Cancer Diagnosis on the Problem List?: No Quality: Stroke Does the patient have a stroke diagnosis?: No Physical Exam Exam: Exam: General: AO X 3, no acute distress Resp: CTA bilateral, no accessory muscles used CVS: S1,S2,RRR GI: soft, non tender, non distended Neuro: motor grossly intact, alert, expressive aphasia Psych: appropriate affect, appropriate insight Vital Signs: Vital Signs: Last Vital Signs Temp 98.6 F 06/26/25 08:30 Pulse 93 06/26/25 08:30 Resp 18 06/26/25 03:59 BP 157/79 H 06/26/25 08:30 Pulse Ox 94 06/26/25 03:59 O2 Del Method CPAP 06/26/25 03:59 BMI result Body Mass Index 51.2 DS: Data Data Completed and Pending Labs on day of discharge: Laboratory Results - last 24 hr 06/25/25 06/25/25 06/25/25 11:33 16:26 19:57 POC Glucose 174 H 114 128 H 06/26/25 07:32 POC Glucose 102 Preliminary micro results at discharge 06/23/25 17:28 Blood Culture - Preliminary Blood - Venous No growth after 48 hours. 06/23/25 17:08 Blood Culture - Preliminary Blood - Venous No growth after 48 hours. Discharge Plan Discharge Anticipated Discharge Date/Time: 06/26/25 09:12 Patient Disposition: Home, Self-Care Discharge Diagnosis: ams Referrals: Physician,Unknown J [Primary Care Provider, Medical] - 1 Week Discharge Medications: New valsartan 80 mg Tablet 80 mg PO BID Qty: 180 0RF Protocol: Hold for SBP< HOLD for SBP < : 90 amlodipine 10 mg Tablet 10 mg PO DAILY 90 Days Qty: 90 0RF Protocol: Hold for SBP< HOLD for SBP < : 90 Discharge Orders: Discharge Order (Routine); Ordered 06/26/25 Ordered By: Carlos A Glass Diet: Advance to usual diet Activity on Discharge: As tolerated Stand Alone Forms: Patient Portal Discharge page Print Language: Turkmen Care Plan Goals: recovery Health Concerns: ams Plan of Treatment: continue cpap, start bp meds Assessment: see above
--- NOTE | 2025-06-26 09:50 | MHC.CM.PN ---
pt dcd home self care
== END 2025-06-26 12:12 | disposition home or self-care (01) ==
LOC: HO.ED 19:22 → HO.EDOVER 19:34 → HO.S3 21:02
PROVIDERS: Admitting Provider Hospitalist; Emergency Provider Emergency Medicine; Visit Provider Internal Medicine
DX: R41.82 Altered mental status, unspecified (principal); G92.8 Other toxic encephalopathy; I10 Essential (primary) hypertension; E11.9 Type 2 diabetes mellitus without complications; I89.0 Lymphedema, not elsewhere classified; G47.33 Obstructive sleep apnea (adult) (pediatric); M79.89 Other specified soft tissue disorders; Z99.89 Dependence on other enabling machines and devices; Z87.820 Personal history of traumatic brain injury; Z03.818 Encounter for observation for suspected exposure to other biological agents ruled out; Z79.4 Long term (current) use of insulin; Z79.899 Other long term (current) drug therapy; Z91.148 Patient's other noncompliance with medication regimen for other reason
CPT/HCPCS: 36415; 70450; 71045; 80048; 80053; 80076; 80307; 81001; 82803; 82947; 83605; 83690; 83735; 84484; 85025; 85027; 85610; 87040; 87637; 93005; 93306; 93970; 94660; 95816; 96360; 96361; 96372; 99221; 99285; J1650; J7120; Q9957

== ENCOUNTER → 2025-06-23 16:29 | Outpatient (BNV) | payer MEDICARE, SELFPAY | PROVIDERS: Emergency Provider Emergency Medicine; Visit Provider Radiology Diagnostic Radiology | DX: R40.20 Unspecified coma (principal); R22.43 Localized swelling, mass and lump, lower limb, bilateral | CPT/HCPCS: 70450; 71045; 93970 ==

== ENCOUNTER → 2025-06-23 16:29 | Outpatient (BNV) | payer MEDICARE, SELFPAY | PROVIDERS: Admitting Provider Hospitalist; Emergency Provider Emergency Medicine; Visit Provider Internal Medicine Cardiovascular Disease | DX: R94.31 Abnormal electrocardiogram [ECG] [EKG] (principal); I10 Essential (primary) hypertension | CPT/HCPCS: 93010 ==

== ENCOUNTER 2025-06-23 19:30 | Outpatient (BNV) | payer MEDICARE, SELFPAY | END 2025-06-25 07:00 | PROVIDERS: Admitting Provider Hospitalist; Emergency Provider Emergency Medicine; Visit Provider Internal Medicine Cardiovascular Disease | DX: I51.7 Cardiomegaly (principal) | CPT/HCPCS: 93306 ==

== ENCOUNTER 2025-06-23 19:30 | Outpatient (BNV) | payer MEDICARE, SELFPAY | END 2025-06-24 13:15 | PROVIDERS: Admitting Provider Hospitalist; Emergency Provider Emergency Medicine; Visit Provider Psychiatry & Neurology Neurology | DX: R46.4 Slowness and poor responsiveness (principal) | CPT/HCPCS: 95816 ==

== ENCOUNTER → 2025-06-23 19:30 | Outpatient (BNV) | payer MEDICARE, SELFPAY | PROVIDERS: Admitting Provider Hospitalist; Emergency Provider Emergency Medicine; Visit Provider Internal Medicine | DX: G47.33 Obstructive sleep apnea (adult) (pediatric) (principal); Z99.89 Dependence on other enabling machines and devices | CPT/HCPCS: 99232 ==